=== PATIENT | male | born 1950 | race Caucasian/White ===

== ENCOUNTER → 2017-05-26 09:15 | Outpatient (CLI) | payer MEDICARE, OTHER, SELFPAY ==
[2017-05-26 10:24] LABS: Prothrombin Time (Protime)PT. 22.4 SECONDS (11.7-14.9)
== END ==
PROVIDERS: Family Provider Internal Medicine; PCP Internal Medicine
DX: I48.0 Paroxysmal atrial fibrillation (principal)
CPT/HCPCS: 85610

== ENCOUNTER 2017-05-26 15:01 | Emergency (ER) | payer MEDICARE, OTHER, SELFPAY ==
[2017-05-26 15:02] VITALS: BP 159/77; PULSE 67; PULSE 70; RESP 14; RESP 19; TEMP 36.3; O2SAT 96; BMI 38.2
--- NOTE | 2017-05-26 15:18 | CT_ITS ---
STUDY: CT ABDOMEN AND PELVIS WITH CONTRAST REASON FOR EXAM: Male, 66 years old. Left abdominal pain. Injury to left lower ribs 2 days ago. RADIATION DOSAGE (If Supplied By Facility): CTDIvol = ( 23.53 ) mGy, DLP = ( 1383.93 ) mGycm TECHNIQUE: Transaxial images were obtained from the dome of the diaphragm to the symphysis pubis without oral contrast. 100 ml of Isovue 300 contrast was administered. Sagittal and coronal images were reconstructed. Individualized dose optimization techniques were used for this CT. COMPARISON: None. FINDINGS: Minimal posterior basilar atelectatic changes of the left lung The visualized portions of the heart are within normal limits. Normal liver. Normal gallbladder and extrahepatic biliary system. Normal spleen. Normal pancreas. Normal bilateral adrenal glands. Normal right kidney. Normal left kidney. Normal visualized stomach. Normal small intestine. Mild diverticulosis of the colon without acute diverticulitis. There is non-visualization of the appendix. Fusiform infrarenal dilatation of the abdominal aorta with a maximum diameter of 3.4 cm. Aneurysm length 7 cm. Moderate calcified plaque. Normal inferior vena cava. Normal retroperitoneum. Normal urinary bladder. Normal abdominal wall. There are diffuse degenerative changes of the visualized lumbar spine. Negative for fracture of the lower ribs, lumbar spine, pelvis or hips. CT/Abdomen/Pelvis W IV Cont ONLY IMPRESSION: No acute trauma related findings. Negative for solid organ, bowel injury or fracture. Minimal posterior basilar atelectasis of the left lung. Mild diverticulosis. Incidental 3.4 cm fusiform aneurysm of the infrarenal aorta with a length of 7 cm. Electronically Signed: Delfina De Paz MD at 16:45 EDT , Service support ,
[2017-05-26 15:53] LABS: Prothrombin Time (Protime)PT. 22.4 SECONDS (11.7-14.9)
[2017-05-26 15:56] LABS: Absolute Lymphocyte Count 3.83 X10^3/ul (0.83-4.51); Basophil# 0.02 X10^3/uL; Basophil% 0.2 % (0-1); Eosinophil# 0.21 X10^3/uL; Eosinophils% 1.9 % (0-5); Hematocrit 39.7 % (40-54); Hemoglobin 12.8 g/dl (13.0-16.5); Lymphocyte # 3.83 X10^3/ul (4.0); Lymphocyte % 35.1 % (19-41); Mean Corp Hgb Conc 32.2 g/gl (32-36); Mean Corpuscular Hgb 27.4 pg (27.0-32.0); Mean Corpuscular Volume 84.8 fL (80-94); Mean Platelet Vol. 10.8 fl (6.2-12.0); Monocyte# 0.84 X10^3/uL; Monocyte% 7.7 % (0-10); Neutrophil # 5.98 X10^3/uL (2.7-7.7); Neutrophil % 54.8 % (47-70); Platelet Count 220 K/mm3 (150-450); RBC Distribution Width CV 14.3 % (11.6-14.6); Red Blood Count 4.68 M/mm3 (4.6-6.2); White Blood Count 10.9 K/mm3 (4.4-11.0)
[2017-05-26 15:59] LABS: Anion Gap 8 (5-15); BUN 24 mg/dL (7-18); BUN/Creat Ratio 25.6 RATIO (10-20); Calcium,Total 8.6 mg/dL (8.5-10.1); Chloride 104 mmol/L (98-107); Creatinine, Serum 0.94 mg/dL (0.70-1.30); EST Glomerular Filtration Rate 86 mL/min (>60); Est Glom Filt Rate - Afr Amer 104 mL/min (>60); Estimated Creatinine Clearance 85.99 ml/min; Glucose 101 mg/dL (74-106); Sodium Level 138 mmol/L (136-145)
[2017-05-26 16:08] LABS: POSITIVE COUNT NO; POSITIVE DIFFERENTIAL NO; POSITIVE MORPHOLOGY NO
--- NOTE | 2017-05-26 16:23 | RAD_ITS ---
STUDY: X-RAY CHEST REASON FOR EXAM: Male, 66 years old. Chest pain TECHNIQUE: PA and lateral views of the chest. COMPARISON: Prior chest radiograph of February 12, 2014 FINDINGS: The lungs are clear and expanded. There is no demonstrated pleural abnormality. Normal size heart. Normal mediastinum and bhavya. Normal visualized pulmonary arteries. There is atherosclerotic calcification of the aortic arch with tortuosity. There are diffuse degenerative changes of the visualized thoracic spine. Old left rib fractures. Anterior cervical spine fusion hardware included in the [id number]. There is no demonstrated abnormality of the visualized soft tissue structures of the upper abdomen. RAD/Chest PA and Lateral IMPRESSION: No acute cardiopulmonary findings or changes. Electronically Signed: Delfina De Paz MD at 17:21 EDT , Service support ,
--- NOTE | 2017-05-26 18:03 | ED.VISSUMM ---
- ER Visit Summary Date of Service: 05/26/17 Chief Complaint: Chest pain History of Present Illness: The patient is a 66 M who presents with chest pain. He states that 2 days ago he had dropped his cell phone into a plastic garbage bin. He was leaning over to pick it up and the edge went underneath his ribs on the left side. He states he felt a pop. He has had left lower chest and left flank pain since that time. He takes OxyContin at home for chronic pain. He was seen at the urgent care. He reportedly had normal rib x-rays. He continued to have pain. He called back. He was told that his insurance would not pay for a second visit at the same facility in the same day so that he had to go to the emergency department. Physical Examination: Afebrile vitals are stable Moist mucous membranes Heart regular rate and rhythm Lungs are clear Left lower lateral chest wall tenderness Abdomen soft but he does have left upper quadrant and flank tenderness I do not appreciate any ecchymosis Test Results: CBC notable for hemoglobin 12.8. Normal BMP. INR 2.0. Chest x-ray shows no acute changes. CT of the abdomen and pelvis shows no acute traumatic findings incidentally he does have 3.4 centimeter abdominal aortic aneurysm. Emergency Department Course and Treatment: The patient is on warfarin and continues to complain of left upper quadrant abdominal pain a CT was obtained to rule out solid organ injury. This is unremarkable. 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 He was advised to continue supportive care at home and was discharged. Treatment Plan: [] Disposition: Discharge Impression: Left chest contusion Left abdominal contusion This note was generated with [employer]ooo dictation software. It may contain incorrect words, spelling, and punctuation that were not noted in review of the chart prior to signing ED Disposition - Plan for ED Patient: Chief Complaint: Chest Other Referrals: Braulio Stafford MD [Primary Care Provider] -
--- NOTE | 2017-05-26 18:06 | ED.DCSUM_ITS ---
- ER Visit Summary Date of Service: 05/26/17 Chief Complaint: Chest pain History of Present Illness: The patient is a 66 M who presents with chest pain. He states that 2 days ago he had dropped his cell phone into a plastic garbage bin. He was leaning over to pick it up and the edge went underneath his ribs on the left side. He states he felt a pop. He has had left lower chest and left flank pain since that time. He takes OxyContin at home for chronic pain. He was seen at the urgent care. He reportedly had normal rib x- rays. He continued to have pain. He called back. He was told that his insurance would not pay for a second visit at the same facility in the same day so that he had to go to the emergency department. Physical Examination: Afebrile vitals are stable Moist mucous membranes Heart regular rate and rhythm Lungs are clear Left lower lateral chest wall tenderness Abdomen soft but he does have left upper quadrant and flank tenderness I do not appreciate any ecchymosis Test Results: CBC notable for hemoglobin 12.8. Normal BMP. INR 2.0. Chest x- ray shows no acute changes. CT of the abdomen and pelvis shows no acute traumatic findings incidentally he does have 3.4 centimeter abdominal aortic aneurysm. Emergency Department Course and Treatment: The patient is on warfarin and continues to complain of left upper quadrant abdominal pain a CT was obtained to rule out solid organ injury. This is unremarkable. 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 He was advised to continue supportive care at home and was discharged. Treatment Plan: [] Disposition: Discharge Impression: Left chest contusion Left abdominal contusion This note was generated with [employer] dictation software. It may contain incorrect words, spelling, and punctuation that were not noted in review of the chart prior to signing ED Disposition - Plan for ED Patient: Chief Complaint: Chest Other Referrals: Braulio Stafford MD [Primary Care Provider] -
--- NOTE | 2017-05-26 18:06 | ED.DEP ---
ED Disposition - Plan for ED Patient: Chief Complaint: Chest Other Instructions: ED Contusion Soft Tissue Referrals: Braulio Stafford MD [Primary Care Provider] -
[2017-05-26 18:15] VITALS: BP 161/78; PULSE 62; RESP 18; O2SAT 98
== END 2017-05-26 18:19 | disposition home or self-care (01) ==
PROVIDERS: Emergency Provider Emergency Medicine; Family Provider Internal Medicine; PCP Internal Medicine
DX: S20.212A Contusion of left front wall of thorax, initial encounter (principal); S30.1XXA Contusion of abdominal wall, initial encounter; W22.8XXA Striking against or struck by other objects, initial encounter; Y93.89 Activity, other specified; Y92.9 Unspecified place or not applicable; Y99.8 Other external cause status; I71.4 Abdominal aortic aneurysm, without rupture; I48.0 Paroxysmal atrial fibrillation; I10 Essential (primary) hypertension; K21.9 Gastro-esophageal reflux disease without esophagitis; Z79.01 Long term (current) use of anticoagulants; Z79.899 Other long term (current) drug therapy
CPT/HCPCS: 71046; 74177; 80048; 85025; 85610; 99283; Q9967; A4216

== ENCOUNTER 2017-06-11 10:35 | Emergency (ER) | payer MEDICARE, OTHER, SELFPAY ==
[2017-06-11 10:37] VITALS: BP 182/97; PULSE 87; RESP 18; TEMP 36.4; O2SAT 100; BMI 35.6
[2017-06-11 11:14] VITALS: BP 154/97; PULSE 56; RESP 16; O2SAT 95
--- NOTE | 2017-06-11 11:14 | ED.DCSUM_ITS ---
- ER Visit Summary Date of Service: 06/11/17 Chief Complaint: Persistent left anterior rib/chest pain and upper abdominal pain History of Present Illness: The patient is a 66 M who injured himself reaching for his cell phone in the garbage canister May 26, 2017. states she found him on the ground in pain. He presented to the emergency room at that time had a CT of the abdomen and pelvis which revealed no evidence of pneumothorax, hemothorax, fractured ribs or splenic injury. He is on Coumadin and his last INR was 2.3. He is on Coumadin secondary to atrial fibrillation. Patient wants an answer why he still hurts. He denies fever, chills night sweats. He denies any ocular, visual or auditory symptoms. He denies any shortness of breath or difficulty breathing. Movement of his left upper extremity and twisting causes increased pain. He is presently on OxyContin. He denies hematemesis, melena hematochezia. He denies dysuria, frequency, urgency or hematuria. Physical Examination: Blood pressure is elevated 182/97. HEENT exam is unremarkable. Heart is irregularly regular. There is no murmur, gallop or rub. Lungs are clear to auscultation with good matter bilaterally. There is no dullness to percussion. He does have pain the patient over the anterior lower rib cage midclavicular line to posterior clavicular line. There is no crepitus obtains air. There is tenderness in the left costal margin. There is no hepatosplenomegaly. There is no outward signs of bruising or injury. Bowel sounds are present normal.. He is alert oriented with a nonfocal neurologic exam. Test Results: Radiologic studies that were performed on May 26 where reviewed and radiology report was read. There is no evidence of fractured rib, injury to the cartilage, pneumothorax, hemothorax or splenic injury. Emergency Department Course and Treatment: He was told that he bruised the cartilage and ribs and may hurt for several more weeks. Treatment Plan: Symptomatic treatment Disposition: Discharge to home Impression: Left anterior chest pain secondary to rib contusion This note was generated with [employer] dictation software. It may contain incorrect words, spelling, and punctuation that were not noted in review of the chart prior to signing ED Disposition - Plan for ED Patient: Disposition: Home or Assisted Living Chief Complaint: Chest Other Instructions: ED Contusion Rib Referrals: Braulio Stafford MD [Primary Care Provider] - 10-14 Days if not better
[2017-06-11 11:21] VITALS: BP 150/75; PULSE 58; RESP 16; O2SAT 96
== END 2017-06-11 11:22 | disposition home or self-care (01) ==
PROVIDERS: Emergency Provider Emergency Medicine; Family Provider Internal Medicine; PCP Internal Medicine
DX: S20.212A Contusion of left front wall of thorax, initial encounter (principal); X58.XXXA Exposure to other specified factors, initial encounter; Y93.89 Activity, other specified; Y92.9 Unspecified place or not applicable; I48.91 Unspecified atrial fibrillation; J44.9 Chronic obstructive pulmonary disease, unspecified; K21.9 Gastro-esophageal reflux disease without esophagitis; Z79.01 Long term (current) use of anticoagulants; Z79.899 Other long term (current) drug therapy; Z87.891 Personal history of nicotine dependence
CPT/HCPCS: 99282

== ENCOUNTER → 2017-08-09 11:19 | Outpatient (CLI) | payer MEDICARE, OTHER, SELFPAY ==
--- NOTE | 2017-08-09 11:23 | VDLE_ITS ---
Reason For Study: LLE PAIN RIGHT LEFT CFV is compressible, spontaneous, phasic, GSV is normal. competent and demonstrates normal CFV is compressible, spontaneous, phasic, augmentation. competent, and demonstrates normal Procedure augmentation. Exam performed in department. FV is compressible, spontaneous, phasic, The exam was diagnostic. competent and demonstrates normal A preliminary report was called and/or faxed augmentation. to Sherri Rivers ELECTRICAL MAINTENANCE ENGINEER-C @ 11:55am @ POP V is compressible, spontaneous, phasic, [id number]. competent and demonstrates normal augmentation. T/P Trunk is compressible. PTV is compressible. LT PerV is compressible. Interpretation Summary There is no evidence of left lower extremity deep vein thrombosis. Left greater saphenous vein appears patent and compressible segmentally. Normal flow patterns right common femoral vein Ordering Physician: Sherri Rivers Referring Physician: Braulio Stafford M.D. Performed By: Yanet Tejeda, IDALIA, RVT
== END ==
PROVIDERS: Family Provider Internal Medicine; PCP Internal Medicine; Visit Provider Nurse Practitioner Family
DX: M79.662 Pain in left lower leg (principal)
CPT/HCPCS: 93971

== ENCOUNTER 2019-01-14 00:39 | Emergency (ER) | payer MEDICARE, OTHER, SELFPAY ==
[2019-01-14] VITALS (29 sets, daily range): BP systolic 96–223; BP diastolic 65–138; PULSE 83–131; RESP 20–36; TEMP 36–36.6; O2SAT 78–100; BMI 36.3
[2019-01-14] MEDS: 0.9% Normal Saline 1,000 ML 1000 ML IV (00:42)
[2019-01-14] MEDS: Midazolam 2 MG/2 ML Syringe IV (00:53)
--- NOTE | 2019-01-14 01:03 | RAD_ITS ---
HISTORY: Pt found unresponsiveET tube placement, NG/OG tube placement ADDITIONAL HISTORY: None provided. TECHNIQUE: Frontal chest radiograph. Number of images including paperwork: 2 COMPARISON: 05/26/2017 FINDINGS: LUNGS AND PLEURA: Bilateral airspace opacities, most pronounced in the right upper lobe. No dense consolidation, sizable effusion or pneumothorax. CARDIAC SILHOUETTE: Upper normal size. MEDIASTINUM AND JOSÉ MIGUEL: Grossly unremarkable given supine portable exam. UPPER ABDOMEN: Unremarkable. SKELETON AND SOFT TISSUES: No acute findings. OTHER DEVICES AND HARDWARE: Sternal wires and cardiac clip. Valvular prosthesis. Endotracheal tube tip at the clavicular heads about 9 cm above the rakesh. Gastric tube tip extends into the stomach, tip below the level of the film. RAD/Chest 1 View (Portable) IMPRESSION: 1. Bilateral infiltrates, nonspecific and possibly asymmetric edema, aspiration pneumonia or pneumonia. 2. Endotracheal tube high in position, consider advancement by about 4 cm. at 0118 Reported and signed by: Isabel Guzman MD Electronically Signed: Isabel Guzman MD at 1:18 EST Tel , Service support ,
--- NOTE | 2019-01-14 01:03 | EKG12_ITS ---
Test Reason : CARDIAC ARREST Blood Pressure : / mmHG Vent. Rate : 105 BPM Atrial Rate : 052 BPM P-R Int : 000 ms QRS Dur : 182 ms QT Int : 476 ms P-R-T Axes : 000 010 136 degrees QTc Int : 629 ms Atrial fibrillation with rapid ventricular response Left bundle branch block Abnormal ECG Confirmed by THERESA MACIAS, ISSAC ([id number]), acquisition editor TEVIN CALDERON ([id number]) on 01/17/2019 9:52:40 AM Referred By: BB Confirmed By:ISSAC CARDENAS MD
--- NOTE | 2019-01-14 01:04 | CT_ITS ---
HISTORY: CARDIAC ARREST ADDITIONAL HISTORY: None provided. TECHNIQUE: CT angiogram images of the chest were obtained with 100 mL Isovue 370 IV contrast as per pulmonary angiogram protocol. 3D MIP images used to aid in evaluation for pulmonary embolism. Number of images including paperwork: 1228 A radiation dose optimization technique was used for this scan. COMPARISON: None FINDINGS: PULMONARY ARTERIES: No central or large peripheral filling defects. Motion artifact limits evaluation. AORTA AND GREAT VESSELS: Unremarkable. HEART/PERICARDIUM: Moderately enlarged. Sternotomy and aortic valve prosthesis. MEDIASTINUM: Unremarkable. ADENOPATHY: No pathologic appearing adenopathy. THYROID: Unremarkable visualized portions. LUNG PARENCHYMA: Bilateral consolidation, greater on the right than the left. PLEURAL SPACES: Unremarkable. UPPER ABDOMEN: Gastric tube tip in the stomach. OSSEOUS AND SOFT TISSUE STRUCTURES: Multiple bilateral anterior rib fractures, some of which are mildly displaced and/or comminuted. Degenerative changes. CT/CTA Chest W/WO Contrast IMPRESSION: 1. No central or large peripheral pulmonary embolus, evaluation limited due to motion artifact. 2. Asymmetric bilateral infiltrates, possibly asymmetric edema, pneumonia, aspiration pneumonia and/or contusion. 3. Bilateral anterior rib fractures. Individualized dose optimization techniques were used for this CT. at 0210 Reported and signed by: Isabel Guzman MD Electronically Signed: Isabel Guzman MD at 2:09 EST Tel , Service support ,
--- NOTE | 2019-01-14 01:04 | CT_ITS ---
HISTORY: MENTAL STATUS CHANGES ADDITIONAL HISTORY: None provided. COMPARISON: None TECHNIQUE: Axial, coronal and sagittal CT images were obtained of the brain without intravenous contrast. Number of images including paperwork: 268. A radiation dose optimization technique was used for this scan. FINDINGS: BRAIN PARENCHYMA: No acute hemorrhage or mass. No definite acute infarct; MRI more sensitive. EXTRA-AXIAL SPACES: No acute hemorrhage. VENTRICULAR SYSTEM: No hydrocephalus. PARANASAL SINUSES AND MASTOIDS: No paranasal sinus air-fluid level. Minimal mucosal thickening. Left mastoid fluid. ORBITS: Unremarkable imaged extent. SKELETON AND SOFT TISSUES: Calvarium intact. ASPECTS score: Not applicable. CT/Brain/Head without Contrast IMPRESSION: No acute intracranial abnormality. Left mastoid effusion. Individualized dose optimization techniques were used for this CT. at 0157 Reported and signed by: Isabel Guzman MD Electronically Signed: Isabel Guzman MD at 1:57 EST Tel , Service support ,
[2019-01-14] MEDS: Propofol 10MG/Ml 1,000 MG/100 ML Bottle 7.1 MG CONT INF (01:07)
[2019-01-14 01:18] LABS: Hematocrit 40.5 % (40-54); Hemoglobin 12.4 g/dL (13.0-16.5); Mean Corp Hgb Conc 30.6 g/dL (32-36); Mean Corpuscular Hgb 26.5 pg (27.0-32.0); Mean Corpuscular Volume 86.5 fL (80-94); Mean Platelet Vol. 11.3 fl (6.2-12.0); POSITIVE COUNT YES; POSITIVE DIFFERENTIAL YES; POSITIVE MORPHOLOGY YES; Platelet Count 267 K/mm3 (150-450); RBC Distribution Width CV 14.6 % (11.6-14.6); RBC Distribution Width SD 46.3 fl (35.1-43.9); Red Blood Count 4.68 M/mm3 (4.6-6.2); White Blood Count 14.6 K/mm3 (4.4-11.0)
[2019-01-14 01:19] LABS: Differential Indicated MANUAL DIFF
[2019-01-14 01:22] LABS: International Normalized Ratio 1.1; Prothrombin Time (Protime)PT. 13.5 SECONDS (11.7-14.9)
[2019-01-14 01:34] LABS: BUN 18 mg/dL (7-18); BUN/Creat Ratio 11.9 RATIO (10-20); Calcium,Total 8.5 mg/dL (8.5-10.1); Creatinine, Serum 1.51 mg/dL (0.70-1.30); EST Glomerular Filtration Rate 49 mL/min (>60); Est Glom Filt Rate - Afr Amer 60 mL/min (>60); Estimated Creatinine Clearance 50.56 ml/min; Glucose 295 mg/dL (74-106); Magnesium 2.5 mg/dL (1.6-2.6)
[2019-01-14 01:35] LABS: Anion Gap 15 (5-15); Chloride 107 mmol/L (98-107); Potassium 3.1 mmol/L (3.5-5.1); Sodium Level 140 mmol/L (136-145)
--- NOTE | 2019-01-14 01:41 | ED.VIS.GEN ---
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 He went to bed, he was asleep and his noticed that he was breathing abnormally and did not look well and would not wake up. They called 911, her daughter performed CPR and was performing it upon EMS arrival. Their initial rhythm was fine ventricular fibrillation. Between then and arriving in the ER, they gave him 3 electric cardioversions and 2 doses of epinephrine 1 mg. They had spontaneous return of circulation prior to arrival with a pulse. They placed an i-gel for airway and breathing. Patient had a CABG 3 or 4 months ago. - Past Medical History (1) CAD (coronary artery disease) Status: Chronic Past Medical History - Allergies and Home Meds Allergies/Adverse Reactions: Allergies No Known Allergies Allergy (Verified 05/26/17 15:01) Primary Care Physician: Braulio Stafford MD [Primary Care Provider] - Doctors: Dr. Americo Freedman - cardiology Surgical History: coronary bypass surgery Lives: Spouse/ Significant Other Smoking Status: Never smoker - Family History Maternal Family History: Reports: Cancer Paternal Family History: Reports: Cancer Review of Systems ROS: Unable to Obtain Physical Exam Vital Signs/Narrative: Vital Signs Temp Pulse Resp BP Pulse Ox 01/14/19 01:11 97 31 H 142/92 H 100 01/14/19 01:07 97.7 F L 97 33 H 94 01/14/19 01:06 97.8 F 106 H 27 H 165/109 H 100 Inital Vital Signs reviewed: Yes General: Well nourished, Well developed, - - unresponsive. spontaneous breathing. LMA i-gel in place, no gag. Head: Normocephalic, Atraumatic Eyes: Perrl - 3mm bilat, equal ENT: Moist mucous membranes Neck: Supple, Nontender Cardiovascular: Regular rate, Regular rhythm, Tachycardia Respiratory: Diminished - throughout, equal BS bilat, clear anteriorly Abdomen: Soft, Nondistended, Normal bowel sounds Extremities: No edema, - - no signs of trauma Skin: No rash, Pallor. Negative for: Cyanosis Neurological: - - GCS 3t; unresponsive Diagnostic/Tx/Re-eval Impressions Chest X-Ray 01/14/19 01:03 IMPRESSION: 1. Bilateral infiltrates, nonspecific and possibly asymmetric edema, aspiration pneumonia or pneumonia. 2. Endotracheal tube high in position, consider advancement by about 4 cm. at 0118 Reported and signed by: Isabel Guzman MD Electronically Signed: Isabel Guzman MD at 1:18 EST Tel , Service support , Brain CT 01/14/19 01:04 IMPRESSION: No acute intracranial abnormality. Left mastoid effusion. Individualized dose optimization techniques were used for this CT. at 0157 Reported and signed by: Isabel Guzman MD Electronically Signed: Isabel Guzman MD at 1:57 EST Tel , Service support , Chest CTA 01/14/19 01:04 IMPRESSION: 1. No central or large peripheral pulmonary embolus, evaluation limited due to motion artifact. 2. Asymmetric bilateral infiltrates, possibly asymmetric edema, pneumonia, aspiration pneumonia and/or contusion. 3. Bilateral anterior rib fractures. Individualized dose optimization techniques were used for this CT. at 0210 Reported and signed by: Isabel Guzman MD Electronically Signed: Isabel Guzman MD at 2:09 EST Tel , Service support , 01/14/19 01:03 Chest 1 View (Portable) [RAD] Stat 01/14/19 01:04 Brain/Head without Contrast [CT] Stat CTA Chest W/WO Contrast [CT] Stat Laboratory Results 01/14/19 01/14/19 01/14/19 00:45 00:45 00:45 WBC 14.6 H RBC 4.68 Hgb 12.4 L Hct 40.5 MCV 86.5 MCH 26.5 L MCHC 30.6 L RDW Std Deviation 46.3 H RDW Coeff of Stew 14.6 Plt Count 267 MPV 11.3 Neut % (Auto) Not Reportable Absolute Neuts (auto) 6.1 Absolute Lymphs (auto) 7.74 H Total Counted 100 Neutrophils % (Manual) 39 L Band Neutrophils % 3 Lymphocytes % (Manual) 53 H Monocytes % (Manual) 2 Eosinophils % (Manual) 3 Diff Path Review May foll Reactive Lymphocytes 2+ Platelet Estimate ADEQUATE RBC Morphology NORM C+C PT 13.5 INR 1.1 APTT 34.0 Specimen Type Sample Site pH Bicarbonate Actual POC Total CO2 Base Excess O2 Saturation O2 % ABG pCO2 ABG pO2 Ashish Test Respiration Rate O2 Delivery Device Minute Volume Vent Mode Tidal Volume POC PEEP Blood Gas Notified Whom Blood Gas Notified Time Sodium 140 Potassium 3.1 L Chloride 107 Carbon Dioxide 18.0 L Anion Gap 15 BUN 18 Creatinine 1.51 H Estim Creat Clear Calc 50.56 Est GFR (MDRD) Af Amer 60 Est GFR (MDRD) Non-Af 49 L BUN/Creatinine Ratio 11.9 Glucose 295 H Calcium 8.5 Magnesium 2.5 Troponin I 0.023 B-Natriuretic Peptide 01/14/19 01/14/19 00:45 02:01 WBC RBC Hgb Hct MCV MCH MCHC RDW Std Deviation RDW Coeff of Stew Plt Count MPV Neut % (Auto) Absolute Neuts (auto) Absolute Lymphs (auto) Total Counted Neutrophils % (Manual) Band Neutrophils % Lymphocytes % (Manual) Monocytes % (Manual) Eosinophils % (Manual) Diff Path Review Reactive Lymphocytes Platelet Estimate RBC Morphology PT INR APTT Specimen Type ART Sample Site R Radial pH 7.29 L Bicarbonate Actual 19.5 L POC Total CO2 21 Base Excess -7 L O2 Saturation 92 L O2 % 60 ABG pCO2 40.2 ABG pO2 70 L Ashish Test POS Respiration Rate 14 O2 Delivery Device Vent Minute Volume 16.00 Vent Mode A-C Tidal Volume 500 POC PEEP 5 Blood Gas Notified Whom ED Blood Gas Notified Time 155 Sodium Potassium Chloride Carbon Dioxide Anion Gap BUN Creatinine Estim Creat Clear Calc Est GFR (MDRD) Af Amer Est GFR (MDRD) Non-Af BUN/Creatinine Ratio Glucose Calcium Magnesium Troponin I B-Natriuretic Peptide 180.3 H - Rhythm Strip Rhythm Strip: Sinus Tach Rate: 105 Ectopy: None - EKG Initial EKG Interpretation: No Acute Injury Pattern, Sinus Tachycardia, LBBB, S-T Depression - lateral precordial leads, no ANTONIO, - - significant artifact; not sent to cardiology; see next EKG Prior: Unchanged - c/w old EKG Follow-up EKG Interpretation: No Acute Injury Pattern, Sinus Tachycardia, LBBB, S-T Depression - lateral precordial leads, no ANTONIO Prior: Unchanged - Medical Decision Making I spoke with Dr. Palmer, cardiology on for STEMI, immediately upon receiving the EKG, and sent it to him w/ his old one. It was decided not to take him right to the [facility], but to rule out medical issues first. His head CT shows no acute bleed or other abnormality, the infiltrates are seen on CT but no pulmonary embolus. He has bilateral rib fractures likely due to CPR. No pneumothorax noted. In discussion with , the patient recently had pneumonia. It is unknown how much of that was residual, but his CT shows significant infiltrates now. I know that at least part of this is due to him aspirating during the procedure where we secured his airway. See below for the procedure note. With respiratory's help, we continued suctioning fluid from his ETT. Prior to that, his ABG showed that he had a mild respiratory acidosis, and he was already overbreathing the vent which was set on AC, likely due to his aspiration, we left his vent settings alone. He never had a recurrent dysrhythmia while being monitored. His potassium was low with a normal magnesium, replacement was ordered and begun. Hypothermia was ordered. The cooling blanket is being used by another patient at this time and not available so we are placing ice packs on his neck, axilla, groin, adding a fentanyl drip to his propofol. He is withdrawing pretty well with the tube now but not waking up. Discussed with certified retinal angiographer Dr. Barrera, he agrees with hypothermia and advises Unasyn to cover him for aspiration. Discussed again with Dr. Palmer who agrees with amiodarone bolus and drip, and also request heparin which will be ordered as well. Discussed with hospitalist for admission. Discussed at length with family. Initially they were requesting transfer to [facility] because we thought he had to go somewhere. I discussed with him that we have certified retinal angiographer, in ICU, service superintendent, and everyone was on board who I spoke with and caring for this patient, and that we have the capability of doing so here at this hospital. After this discussion, they were comfortable with him staying here. Therefore I discussed with Dr. England hospitalist who saw the patient, at which point they got another family member involved over the phone who wanted him transferred. But then seemed that the whole family was on board with us discussing with the patient's service superintendent at [facility] who happened to be available, and going according to his recommendations. That physician indeed preferred to have him transferred to [facility]. We then discussed with the certified retinal angiographer Dr. Devries who accepted the patient. We are now awaiting mobile intensive care transport. Also, on checking ETT and chest x-ray, the tip appeared to be at the clavicles with the tube at 23 cm at the lip. Hospitalist preferred that it be advanced, this was done, repeat chest x-ray shows good placement still, in addition to evolution of his right lung infiltrates. He is stable on the ventilator and propofol/fentanyl drips, and his vital signs are normal with his blood pressure now 136/83 and his respiratory rate is down to 25 with pulse ox at low 90s. - Critical Care Time Critical care time (excluding procedures): 30-74 minutes - 45 min, not including procedures, Including time spent:, Discussing w/Patient &/or Family/Lead C Developer, Discussing w/Consultants, Arranging Admission or Transfer, Performing Direct Patient Care at Bedside Procedures Procedure(s): Intubation via Cook airway exchange catheter. -Since patient was unresponsive and had no gag reflex with the LMA in his tracheo-pharyngeal area, did not flinch when nursing placed his chamberlain catheter, and because I wanted to see if the patient would become more responsive with time and perfusion, I placed a 7.5 ETT via Cook airway exchange catheter placed through the i-gel LMA without any further sedation or pretreatment. The patient started gagging immediately. Air was heard moving through the exchange catheter as he was gagging and breathing. I removed the LMA and replace it with the ETT, which was lubricated, along with a gentle twisting, causing more gagging and secretions which were actively being suctioned during the procedure (I had 2 respiratory therapists assisting; one was suctioning, the other handed me the tube and was assisting in helping to keep his teeth from clenching on the tube). We then suctioned the secretions from the ET tube as well. There was good color change on CO2, x-ray confirms tube placement, I suspect he aspirated as a result of all of this but there were no other complications or hypoxemia/bradycardia. Given the gagging and possible vomiting that he was doing, I feel leaving the i-Gel in place could have resulted in worse aspiration, so my judgement was to replace it with the airway protection of an endotracheal tube RUT. ED Disposition - Plan for ED Patient: Disposition: [facility] - Main Diagnosis: Cardiac arrest with ventricular fibrillation, Aspiration pneumonia, Encephalopathy acute, Hypokalemia Referrals: Braulio Stafford MD [Primary Care Provider] -
[2019-01-14 01:43] LABS: Eosinophil 3 % (0-5); Lymphocyte 53 % (19-41); Monocyte 2 % (0-10); Neutrophil-Band 3 % (0-5); Neutrophil-Segmented 39 % (47-70); Platelet Estimate ADEQUATE (ADEQ); Reactive Lymphocyte 2+; Red Cell Morphology NORM C+C NORMAL (NORM C&C); Total Cells Counted 100 (MANUAL DIFF)
[2019-01-14 01:45] LABS: Absolute Lymphocyte Count 7.74 X10^3/uL (0.83-4.51); Absolute Neutrophil Count 6.1 X10^3/uL (2.0-7.7)
[2019-01-14 01:47] LABS: BNP,B-Type NATRIURETIC PEPTIDE 180.3 pg/mL (0-100)
[2019-01-14] MEDS: Potassium Chloride 10mEq/100mL 10 MEQ/100 ML IV.SOLN. 100 MEQ IV BOLUS (02:05)
[2019-01-14 02:06] LABS: Allen Test POS; Base Excess -7 mmol/L (-2 to +2); Bicarbonate 19.5 mmol/L (22-26); Blood Gas Specimen Type ART; FI02 60; Mode A-C; O2 Delivery Device Vent; PEEP 5; PO2 70 mmHG (75-100); RR 14; SITE R Radial; SO2 92 % (95-99); Time Given 155; Total Carbon Dioxide 21 mmol/L; Vt 500; pCO2 40.2 mmHg (35-45); pH 7.29 (7.35-7.45)
--- NOTE | 2019-01-14 02:29 | HP.PCM_ITS ---
Problem List (1) Cardiac arrest with ventricular fibrillation Status: Acute (2) Aspiration pneumonia Status: Acute Qualifiers: Aspiration pneumonia type: unspecified Laterality: unspecified laterality Lung location: unspecified part of lung Qualified Code(s): J69.0 - Pneumonitis due to inhalation of food and vomit (3) MARCO ANTONIO (acute kidney injury) Status: Acute (4) Hypokalemia Status: Acute (5) PAF (paroxysmal atrial fibrillation) Status: Chronic (6) Bladder cancer Status: Chronic Qualifiers: Bladder location: unspecified site Qualified Code(s): C67.9 - Malignant neoplasm of bladder, unspecified (7) Former tobacco use Status: Chronic (8) HTN (hypertension) Status: Chronic Qualifiers: Hypertension type: essential hypertension Qualified Code(s): I10 - Essential (primary) hypertension (9) HLD (hyperlipidemia) Status: Chronic Qualifiers: Hyperlipidemia type: unspecified Qualified Code(s): E78.5 - Hyperlipidemia, unspecified (10) CAD (coronary artery disease) Status: Chronic Qualifiers: Coronary Disease-Associated Artery/Lesion type: unspecified vessel or lesion type [place] vs. transplanted heart: unspecified whether [place] or transplanted heart Associated angina: angina presence unspecified Qualified Code(s): I25.10 - Atherosclerotic heart disease of [place] coronary artery without angina pectoris History of Present Illness Date of Admission: 01/14/19 Chief Complaint: Unresponsive The patient is a 68 y/o M w/ PMHx: PAF, HTN, CAD s/p CABG ~ 3 months prior, History of Bladder CA, GERD who presents to the [facility] ED on 01/14/19 with history of recently flying home on a flight from [place] approximately 6 to 7 hours prior to onset of symptoms, going to bed following which his noticed that he was breathing abnormally and difficult to arouse prompting her to call 911. Per report her daughter performed CPR and continued until EMS arrived. The initial rhythm noted per EMS was fine ventricular fibrillation with EMS administration of 3 electrocardioversions and 2 doses of epinephrine with spontaneous return of circulation. Work-up in the ED included CBC with WBC 14.6, hemoglobin 12.4, platelet 264 with increased lymphocytes, unremarkable coags, ABG with pH 7.29, bicarb 19.5, PCO2 40, PO2 70 on the ventilator, BMP with potassium 3.1,, dioxide 18, BUN/creatinine 18/1.51, glucose 295, magnesium 2.5, troponin 0 0.023, BNP 180.3, chest x-ray with bilateral infiltrates with ET tube in the high position, CT brain with no acute intracranial finding with a left mastoid effusion, CTPA with no large or central peripheral pulmonary embolus although evaluation limited secondary to motion artifact, asymmetric bilateral infiltrates possibly asymmetric edema, pneumonia, aspiration pneumonia nor contusion, bilateral anterior rib fractures, EKG with sinus tachycardia with left bundle branch block with ST depression in the lateral precordial leads. In the ED patient was transition from an ideal LMA to an ET tube. During ETT placement he was noted to have onset of severe gagging with esophageal secretion aspiration. In the ED patient administered normal saline, amiodarone, Unasyn, heparin bolus and drip as well as propofol and fentanyl for sedation. Past Medical History Past Medical History (Chronic Problems): Chronic Problems CAD (coronary artery disease) (Chronic) PAF (paroxysmal atrial fibrillation) (Chronic) Bladder cancer (Chronic) Former tobacco use (Chronic) HTN (hypertension) (Chronic) HLD (hyperlipidemia) (Chronic) Allergies No Known Allergies Allergy (Verified 05/26/17 15:01) Home Medications: Ambulatory Orders Medication Instructions Recorded Albuterol Inhaler [Ventolin Hfa] 1 - 2 puff INHALATION Q4H PRN PRN 12/29/12 Omeprazole [Prilosec] 20 mg PO DAILY 12/29/12 Sotalol HCl [Betapace AF] 120 mg PO BID 12/29/12 Metoprolol Tartrate [Lopressor 50 mg PO BID 08/18/16 (beta kathryn)] Warfarin [Coumadin (PBKC)] 6 mg PO DAILY@1700 08/18/16 Surgical History: - - CD status post recent CABG, PAF, history of bladder cancer, hypertension, hyperlipidemia. Psychiatric History: No pertinent psych hx Lives: Spouse/ Significant Other Smoking Status: Former smoker - With cigarette tobacco usage [place] 45 years prior. Tobacco Use: Non-smoker Alcohol: Occasional - From discussion with daughter and suspect the patient had heavier alcohol consumption prior to his CABG, currently now per drinks socially up to 2-3 drinks per sitting. Drugs: None - *Family History Maternal History Items: Cancer Paternal History Items: Cancer Review of Systems Unable to obtain accurate/complete ROS d/t: Unable to obtain ROS secondary to patient intubated, sedated status. VTE Information - Inpt Only VTE Present on Admission: No VTE Mechan Device Prophylaxis: SCD's VTE Pharm Prophylaxis ordered?: Yes Patient Problems: Active and Suspected Problems Cardiac arrest with ventricular fibrillation (Acute) Aspiration pneumonia (Acute) Encephalopathy acute (Acute) Hypokalemia (Acute) MARCO ANTONIO (acute kidney injury) (Acute) Subjective: Laying in the ED bed, intubated, sedated, recent suction with pink frothy material from ET tube, RT adjusting respiratory settings. Objective: Physical Examination: General: Unresponsive, currently sedated, intubated, laying in the ED bed, presented following cardiac arrest. Skin: normal color, turgor, no icterus, cyanosis well-healed midline sternotomy incision. HEENT: AT/NC, EOM unable to be assessed, pupils pinpoint bilaterally, moderately dry MM, no carotid bruits or JVD noted. Lungs: Diffusely coarse, intubated, symmetric rise, rhonchorous, no obvious wheezing, despite recently intubated status notable abdominal muscle usage. Heart: Irregular irregular; no gallop, rub audible. Abdomen: soft, obese, NTTP, ND, normal BS, no HSM. Extremities: no cyanosis, clubbing, bilateral lower extremity pedal edema. Neurological: Unresponsive, currently sedated, intubated, laying in the ED bed, presented following cardiac arrest; cognitive function not baseline intact; pupils pinpoint; cranial nerves unable to be assessed, intubated, sedated. Psychiatric: affect appears flat, sedated, no acute evidence of depressive or anxiety feelings. - Physical Exam Vitals/I&O's: Vital Signs Temp Pulse Resp BP Pulse Ox 96.8 F L 103 H 33 H 160/87 H 91 01/14/19 02:03 01/14/19 02:03 01/14/19 02:03 01/14/19 02:03 01/14/19 02:03 Oxygen Delivery Method Mechanical Ventilator Weight: 260 lb 12.909 oz Body Mass Index (BMI) 36.3 Intake and Output for Last 24 Hours 01/12/19 01/13/19 01/14/19 23:59 23:59 23:59 Intake Total 8.40 / 8.40 Balance 8.40 / 8.40 Laboratory Results 01/14/19 00:45: WBC 14.6 H, RBC 4.68, Hgb 12.4 L, Hct 40.5, MCV 86.5, MCH 26.5 L , MCHC 30.6 L, RDW Std Deviation 46.3 H, RDW Coeff of Stew 14.6, Plt Count 267, MPV 11.3, Neut % (Auto) Not Reportable, Absolute Neuts (auto) 6.1, Absolute Lymphs (auto) 7.74 H, Total Counted 100, Neutrophils % (Manual) 39 L, Band Neutrophils % 3, Lymphocytes % (Manual) 53 H, Monocytes % (Manual) 2, Eosinophils % (Manual) 3, Diff Path Review June, Reactive Lymphocytes 2+, Platelet Estimate ADEQUATE, RBC Morphology NORM C+C 01/14/19 00:45: Sodium 140, Potassium 3.1 L, Chloride 107, Carbon Dioxide 18.0 L , Anion Gap 15, BUN 18, Creatinine 1.51 H, Estim Creat Clear Calc 50.56, Est GFR (MDRD) Af Amer 60, Est GFR (MDRD) Non-Af 49 L, BUN/Creatinine Ratio 11.9, Glucose 295 H, Calcium 8.5, Magnesium 2.5, Troponin I 0.023 01/14/19 00:45: PT 13.5, INR 1.1, APTT 34.0 01/14/19 00:45: B-Natriuretic Peptide 180.3 H 01/14/19 02:01: Specimen Type ART, Sample Site R Radial, pH 7.29 L, Bicarbonate Actual 19.5 L, POC Total CO2 21, Base Excess -7 L, O2 Saturation 92 L, O2 % 60, ABG pCO2 40.2, ABG pO2 70 L, Ashish Test POS, Respiration Rate 14, O2 Delivery Device Vent, Minute Volume 16.00, Vent Mode A-C, Tidal Volume 500, POC PEEP 5, Blood Gas Notified Whom ED MD, Blood Gas Notified Time 155 Current Medications Propofol (Diprivan) 1,000 mg in 100 mls @ 7.098 mls/hr CONT INF .Q12H OZIEL; Protocol Last Titration: 01/14/19 02:03 Dose: 25 mcg/kg/min, 17.7 mls/hr Documented by: Potassium Chloride () 10 meq in 100 mls @ 100 mls/hr IV BOLUS NOW STA Stop: 01/14/19 02:45 Last Admin: 01/14/19 02:05 Dose: 100 mls/hr Documented by: Ampicillin Sodium/Sulbactam (Sodium 3 gm/ Sodium Chloride) 112 mls @ 150 mls/hr IV X1 ONE Stop: 01/14/19 02:44 Fentanyl () 100 mls @ 5 mls/hr IV UD OZIEL; Protocol Assessment/Plan All Active Problems Cardiac arrest with ventricular fibrillation (Acute) Aspiration pneumonia (Acute) Encephalopathy acute (Acute) Hypokalemia (Acute) MARCO ANTONIO (acute kidney injury) (Acute) The patient is a 68 y/o M w/ PMHx: PAF, HTN, CAD s/p CABG ~ 3 months prior, History of Bladder CA, GERD who presents to the [facility] ED on 01/14/19 with history of recently flying home on a flight from [place] approximately 6 to 7 hours prior to onset of symptoms, going to bed following which his noticed that he was breathing abnormally and difficult to arouse prompting her to call 911. 1. Cardiac arrest with ventricular fibrillation: Work-up in the ED included CBC with W BC 14.6, hemoglobin 12.4, platelet 264 with increased lymphocytes, unremarkable coags, ABG with pH 7.29, bicarb 19.5, PCO2 40, PO2 70 on the ventilator, BMP with potassium 3.1,, dioxide 18, BUN/creatinine 18/1.51, glucose 295, magnesium 2.5, troponin 0 0.023, BNP 180.3, chest x-ray with bilateral infiltrates with ET tube in the high position, CT brain with no acute intracranial finding with a left mastoid effusion, CTPA with no large or central peripheral pulmonary embolus although evaluation limited secondary to motion artifact, asymmetric bilateral infiltrates possibly asymmetric edema, pneumonia, aspiration pneumonia nor contusion, bilateral anterior rib fractures, EKG with sinus tachycardia with left bundle branch block with ST depression in the lateral precordial leads. Will admit to the ICU, initiate amiodarone bolus with transition to continuous infusion, trend cardiac enzymes, repeat EKG in a.m. and as needed, supplement potassium as noted, magnesium level obtained and noted to be normal, continue cooling methods per Pharmacy Manager direction, initiate heparin drip with bolus, cardiology consulted and aware of patient with planned evaluation in a.m, NE ASA. 2. Aspiration Pneumonia: Will maintain intubated status, continue ATC duonebs, PRN albuterol, maintained on IV Unasyn for aspiration, unclear findings on CT chest may have also been prior to aspiration events, to be cautious will obtain sputum culture, respiratory viral panel and urine antigens as well as blood culture x2. Functional Architect, Dr. Barrera consulted and aware of case, pending. 3. Acute kidney injury: Secondary to acute presentation as noted. Admission BUN/Cr 18/1.51, prior baseline creatinine noted to be 0.9-1.0. Will hydrate, hold nephrotoxic medications and repeat chemistry in AM. If no improvement would plan FeNa assessment. 4. Hypokalemia: Admission K+ 3.1, supplementation given, repeat level in AM. 5. Hyperglycemia: Admission glucose 295, HgbA1c ordered, NPO status, TF per ICU direction if appropriate, q 6 hour accu checks with ISS. 6. CAD: Recent CABG x 1 10/17/18, maintain on PRN aspirin, holding prior oral regimen given acute presentation with initiation of amiodarone bolus and continuation with infusion following, maintain on heparin drip as noted. 7. Valvular heart disease: Status post AVR, bovine with recent CABG, echo pending as noted. 8. Chronic atrial fibrillation: Patient s/p recent MAZE, heparin drip initiation as noted. 9. GERD: IV Famotidine. 10. DVT prophylaxis: SCDs, heparin drip as noted. 11. CODE status: Discussed CODE status at length including difference between FULL code, DNR-CCA and DNR-CC status. Following discussions about the differences in these status, requested continuation full CODE STATUS. Advanced Care Planning Face to Face Time: 16 minutes. Code Visit Inpatient E&M: 62413 Init Hosp L3 Procedures: 31955 Advncd Care Plan 30 Min
[2019-01-14] MEDS: fentaNYL 100 MCG/2 ML Ampul IV (02:30)
[2019-01-14] MEDS: fentaNYL drip 100 ML 5 MCG IV (02:50)
--- NOTE | 2019-01-14 02:55 | ED.RN ---
ice packs initiated at 0249. Core temp 97.3 F. Ice packs applied to right neck, groin, and each arm.
[2019-01-14] MEDS: Heparin Injection (Vial) 5,000 UNIT/ML VIAL 4000 UNIT SC (03:10)
--- NOTE | 2019-01-14 03:28 | RAD_ITS ---
STUDY: X-RAY CHEST REASON FOR EXAM: Male, 68 years old. Repositioned endotracheal tube TECHNIQUE: Portable chest COMPARISON: Same day FINDINGS: There is a metallic plate and screws within the lower cervical spine. An endotracheal tube with the tube tip 6.1 cm proximal to the rakesh. There is an oral gastric tube with the tip extending into the stomach. Stable left lung pulmonary infiltrates. There is interval worsening right upper lobe and right lower lobe pulmonary infiltrates. There is stable mild cardiomegaly. There are sternal wires. There is atrial clip.. Surgical clips within the right cervical soft tissues.. Normal mediastinum and bhavya. Normal visualized aortic arch and descending thoracic aorta. Osteopenia and degenerative changes thoracic spine. There is no demonstrated abnormality of the visualized soft tissue structures of the upper abdomen. RAD/Chest 1 View (Portable) IMPRESSION: lines and tubes as above Stable cardiomegaly Interval worsening pulmonary opacities secondary to pulmonary edema and/or pneumonia Electronically Signed: Christopher Kirby, at 5:38 EST Tel , Service support ,
[2019-01-14] MEDS: HEPARIN/D5w 25,000 UNITS 25,000 UNITS/250 ML IV.SOLN. 16 UNITS IV (03:52)
--- NOTE | 2019-01-14 03:53 | CPS ---
E.T. tube advanced 2cm to allow for better ventilation and oxygenation. PEEP, FiO2, RR increased. Vt decreased; maintain patient's oxygenation status
[2019-01-14] MEDS: Aspirin 81 MG TAB.CHEW 162 MG NG (04:38)
--- NOTE | 2019-01-14 04:38 | ED.RN ---
Son from [place] notified by S.O. about pt condition.
--- NOTE | 2019-01-14 04:41 | ED.RN ---
Titrating per order, at 0231 when propofol was increased to 35 mcg/kg/min pt RASS score dec to 0. Fentanyl gtt started at 0250. CPOT of 2.
--- NOTE | 2019-01-14 04:54 | ED.RN ---
pt with total of 100 ml of pink, frothy sputum from suction while in ED.
--- NOTE | 2019-01-14 05:09 | ED.RN ---
Propofol 10 ml bottle given to [facility] transport team.
--- NOTE | 2019-01-14 05:12 | ED.RN ---
[facility] transport at bedside at 0400.
--- NOTE | 2019-01-14 05:36 | ED.RN ---
Teresa called and notified that pt has left [facility].
[2019-01-16 14:12] LABS: Pathologist Review Reviewed
== END 2019-01-14 05:26 | disposition short-term general hospital (02) ==
LOC: ED 01:55 → ICU 02:54 → ED 04:09
PROVIDERS: Emergency Provider Emergency Medicine; Family Provider Internal Medicine; PCP Internal Medicine; Visit Provider Family Medicine
DX: I46.9 Cardiac arrest, cause unspecified (principal); I49.01 Ventricular fibrillation; J69.0 Pneumonitis due to inhalation of food and vomit; I25.10 Atherosclerotic heart disease of native coronary artery without angina pectoris; S22.43XA Multiple fractures of ribs, bilateral, initial encounter for closed fracture; X58.XXXA Exposure to other specified factors, initial encounter; G93.40 Encephalopathy, unspecified; E87.6 Hypokalemia; N17.9 Acute kidney failure, unspecified; I48.0 Paroxysmal atrial fibrillation; C67.9 Malignant neoplasm of bladder, unspecified; I10 Essential (primary) hypertension; E78.5 Hyperlipidemia, unspecified; K21.9 Gastro-esophageal reflux disease without esophagitis; I44.7 Left bundle-branch block, unspecified; R06.09 Other forms of dyspnea; Z95.1 Presence of aortocoronary bypass graft; Z87.01 Personal history of pneumonia (recurrent); Z79.01 Long term (current) use of anticoagulants; Z79.899 Other long term (current) drug therapy; Z87.891 Personal history of nicotine dependence
CPT/HCPCS: 31500; 31720; 36415; 36600; 51702; 70450; 71045; 71275; 80048; 82803; 83735; 83880; 84484; 85025; 85610; 85730; 93005; 94002; 96365; 96367; 96372; 96375; 99251; 99285; J7030; J7050; Q9967; A4216; G0463; J0295

== ENCOUNTER → 2019-03-28 09:39 | Outpatient (CLI) | payer MEDICARE, OTHER, SELFPAY ==
[2019-01-14 01:06] VITALS: BMI 36.3
--- NOTE | 2019-03-28 10:16 | PCM.CR.HP2 ---
CR - History & Physical - General Arrival date:: 03/28/19 Arrival time:: 09:45 Date of Referral:: 03/23/19 Date of CR Evaluation:: 03/28/19 Referring Physician: DR. SALAS HELLER @ [place], [place] Primary Diagnosis: S/P V-FIB CARDIAC ARREST, S/P CABG - History of Present Cardiac Event Onset Date: Enter Onset Date of cardiac illnesses in Comment field below Acute Myocardial Infarction within 12 months:: Yes - 01/14/2019 SUDDEN CARDIAC -NSTEMI Coronary Artery Bypass Graft:: Yes - 09/22/2018 Heart valve replacement or repair:: Yes - AVR 10/17/2018 Type of Symptoms:: SUDDEN CARDIAC Were there any complications?: PVC WITH SUSTAINED V.TACH, - Medications Home Medications: Ambulatory Orders Medication Instructions Recorded Albuterol Inhaler [Ventolin Hfa] 1 - 2 puff INHALATION Q4H PRN PRN 12/29/12 Omeprazole [Prilosec] 20 mg PO DAILY 12/29/12 Sotalol HCl [Betapace AF] 120 mg PO BID 12/29/12 Warfarin [Coumadin (PBKC)] 6 mg PO DAILY@1700 08/18/16 Aspirin [Aspirin EC] 81 mg PO 03/28/19 Atorvastatin Calcium [Lipitor] 40 mg PO QHS 03/28/19 Carvedilol [Coreg] 12.5 mg PO BID 03/28/19 Fluticasone 0.05% [Flonase Nasal 1 spray NASAL BID PRN 03/28/19 [place]] Fluticasone/Vilanterol [Breo 03/28/19 Ellipta 100-25 Mcg INH] Hydralazine HCl 25 mg PO BID 03/28/19 Isosorbide Dinitrate 10 mg PO BID 03/28/19 Omeprazole [Prilosec] 40 mg PO PRN 03/28/19 - Allergies Allergies/Adverse Reactions: Allergies No Known Allergies Allergy (Verified 05/26/17 15:01) - Sleep Disorder Evaluation Hx of Sleep Apnea: No Do you snore loudly (louder than talking or can be heard through closed doors)?: No Do you often feel tired/ fatigued/ sleepy during daytime?: No Has anyone observed you stop breathing during sleep?: No History of Hypertension (for STOP score): No STOP Results: Negative Advanced Directives - Advanced Directives Power of Senior Procurement Manager: No Living Will: No Advance Directives Information Provided: Yes Advance Directives on File: No DNR Order?:: No - MOLST See MOLST form: No Past Medical History - Past Medical Illness Medical History: Past Medical History (Last Updated 03/28/19 @ 10:34 by Joesph Robins CRT, PUMP STITCHER, BS) MARCO ANTONIO (acute kidney injury) N17.9 Acute hypoxemic respiratory failure J96.01 Acute hypoxemic respiratory failure J96.01 Aspiration pneumonia due to inhalation of vomitus J69.0 Cardiac arrest Onset Date: 01/14/19 I46.9 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 Implantable cardioverter-defibrillator (ICD) in situ Z95.810 Paroxysmal atrial fibrillation I48.0 Personal history of DVT (deep vein thrombosis) Z86.718 Primary hypertension I10 Retroperitoneal hematoma K66.1 Severe aortic valve stenosis I35.0 Acute on chronic systolic CHF (congestive heart failure) I50.23 - Past Surgical History Surgical History: Past Surgical History (Last Updated 03/28/19 @ 10:33 by Joesph Robins, CORDELL, PUMP STITCHER, BS) History of right-sided carotid endarterectomy Z98.890 S/P CABG (coronary artery bypass graft) Onset Date: ~01/09/19 Z95.1 S/P Maze operation for atrial fibrillation Z98.890, Z86.79 S/P left atrial appendage ligation Z98.890 Status post Maze operation for atrial fibrillation Z98.890, Z86.79 Surgical History: adenoidectomy, appendectomy, tonsillectomy, - - CD status post recent CABG, PAF, history of bladder cancer, hypertension, hyperlipidemia. Social History - Smoking History Smoking Status: Former smoker Years Smokin Packs Smoked per Day: 1 Hx Smoking Cessation Date: 03/28/16 Hx Tobacco Use: Yes Hx Smoking Exposure: No - Alcohol Use Alcohol Usage: Yes - MODERATE WEEKEND WORRIOR, WINE WITH DINNER ETC. - Substance Abuse Hx Substance Use: No - Occupation Occupation (List type of work in comments):: Employed Hours worked per day:: 12 Returned to work on:: 02/02/19 - Hobbies, Recreation, Social Activities Hobbies: Sports - [place] - VAC[place], Other - WORK ENJOY MY WORK Recreational Activities: I am able to engage in most, but not all activities - 75% PERCENT BACK TO REGULAR ACTIVITY Social Environment - Status Marital Status: - Current Living Arrangements Living Environment:: Spouse - Children How many children do you have?: 1 - VENKAT Do any of your children live nearby?: Yes - [place] - Safety Do you feel safe in your surroundings?: Yes - Assistance Do you need any assistance at home?: NONE Review of Systems - Review of Systems Hints: Right click = Denies (Slash). Left click = Reports ([place]) Review of Present Symptoms: Reports: Shortness of Breath with Exertion - A LITTLE, WALKING TWO-FLIGHTS OF STAIRS NOW WITHOUT ANY REAL ISSUE, Dizziness/Lightheadedness - SOMETIMES, Fatigue, Heart Arrhythmia/Irregularities - V-FIB AND PAROXYSMAL ATRIAL FIB, HAS IMPLANTABLE DEFIBRILLATOR FOR THE V-FIB AND HAS HAD NO RECURRING EVENTS, Appetite - Normal, Appetite - Special Diet - LOSS 60 POUNDS, LIVING WELL DIET AND MAINTAINING, Sleep - Normal. Denies: Sexual Changes - Pain Is Patient Pain Free?: Yes Pain Location: none Pain Level: 0/10 Risk Factor Assessment - Chief Complaint Chief Complaint: PATIENT IS A 68 YR OLD MALE WHO PRESENTST O CR TODAY FOLLOWING RECENT SUDDEN CARDIAC DUE TO V-FIB ARREST. - Vital Signs Temperature: 98.5 F Respiratory Rate: 14 Pulse Ox: 96 Blood Pressure: 148/68 - Pulse Pulse Rate: 61 Pulse Rhythm: Regular - Hypertension Blood Pressure Sitting - Right Arm: 148/68 Blood Pressure Sitting - Left Arm: 148/68 - Stress Stress: Recent - Blood Cholesterol/Lipids Total Cholesterol (mg/dL) Goal = less than 200 mg/dL: 0 - Obesity Height: 6 ft Weight:: 240 lb Weight in Pounds: 240.0 lbs Weight Source: Standing Scale Body Mass Index (BMI): 32.5 Nutritional Referral for Obesity: Yes - Physical Inactivity Physical Inactivity: Reg Exercise 30 min/day - Risk Stratification Risk Guidelines: Lowest Risk: Risk Factor for Smoking, Risk Factor for Dyslipidemia, Risk Factor for Diabetes, Risk Factor for Hypertension, Risk Factor for Sedentary Lifestyle, Highest Risk: Risk Factor for Obesity - For Smoking Smoking Risk Guidelines: Smoking Low Risk: None or quit greater than 6 months ago. Smoking Moderate Risk: Smoker or quit 6 months or less ago. Smoking High Risk: Smoker - For Dyslipidemia Dyslipidemia Risk Guidelines: Low Risk: Moderate Risk: High Risk: 15-25% fat 25.1-29% fat >/= 30% fat. <7% sat fat 7-9% sat fat >9% sat fat. <150 mg chol 150-299 mg chol >/= 300 mg chol. LDL <100 LDL 100-129 LDL >/= 130. Chol/HDL ratio <5.0 Chol/HDL ratio 5.0-6.0 Chol/HDL ratio >6.0. Triglycerides <100 Triglycerides 100-149 Triglycerides >/= 150 - For Diabetes Mellitus Diabetes Risk Guidelines: Diabetes Low Risk: HgA1c <6.5% and/or FBG <120. Diabetes Moderate Risk: HgA1c 6.6-7.9% and/or FBG 120-180. Diabetes High Risk: HgA1c >/= 8% and/or FBG >180 - For Obesity/Overweight Obesity/Overweight Risk Guidelines: Obesity Low Risk: BMI <25.0. Obesity Moderate Risk: BMI 25-29.9. Obesity High Risk: BMI >/= 30.0 - For Hypertension Hypertension Risk Guidelines: Hypertension Low Risk: Systolic <120 and Diastolic <80. Hypertension Moderate Risk: Systolic 120-139 and Diastolic 80-89. Hypertension High Risk: Systolic >/= 140 and Diastolic >/= 90 - For Sedentary Lifestyle Sedentary Lifestyle Risk Guidelines: Sedentary Lifestyle Low Risk: >/= 1,500 kcal/week. Sedentary Lifestyle Moderate Risk: 700-1,499 kcal/week. Sedentary Lifestyle High Risk: < 700 kcal/week - For Depression Depression Risk Guidelines: Depression Low Risk: Not clinically depressed. Depression Moderate Risk: Mildly depressed. Depression High Risk: Clinically depressed Motivation - Motivation to Participate On a scale of 1 to 10, how prepared are you to commit to attending program?: 10 What do you see as barriers to successfully being able to complete the program?: NONE What do you see as the benefits of succesfully completing the program? In other words, what do you hope to get out of participating in the program?: GETTING BACK TO NORMAL ACTIVITY, HEALTHIER LIFESTYLE, Are there issues you are dealing with that will interfere with completing the program?: WORK SCHEDULE Do you have a spouse or signficant other, family or friends who will help support you to complete the program?: YES
--- NOTE | 2019-03-28 10:16 | PCM.CR.ITP ---
Diagnosis - General Information Admitting Diagnosis: S/P V-FIB CARDIAC ARREST, CABG Personal Learning Style:: Audio/Visual, Group, Written Barriers to Learning: No Barriers Stage of change r/t lifestyle modifications:: Action Gave educational material for:: Treating Heart Disease, Emotions & Heart Disease, Stress Management & Relaxation, Sleep Disorders & Heart Disease, How The Heart Works, What it means to have Heart Disease, How Coronary Artery Disease is Diagnosed, Heart Procedures, What Heart Medications Do, Risk Factors & Modifications, Living an Active Life, Nutrition - Education/Goals Individual Counseling: Initial Assessment: Abnormal Cholesterol Levels, High Blood Pressure Cardiac Rehabilitation Goals: 1. Maintain the individual as the primary focus of care. 2. To improve the patient's quality of life. 3. Identification of cardiac risk factors and provide cardiac risk factor management. 4. Enhance the psychosocial status of the patient. 5. Reconditioning enough to allow the patient to resume customary activities. 6. Control symptoms of cardiac disease Personal Goals: Initial Assessment: Improve management of stress and emotions, Improve energy level, Get back to work, or to resume activities faster, Improve knowledge of cardiac disease, Improve muscle strength and endurance, Improve diet and eating habits (eat healthier) Scale for measuring improvement of personal goals: Enter appropriate number in Comments. 2 = Unchanged. 3 = Slightly Better. 4 = Moderate Improvement. 5 = Met my Goal Exercise - Initial Assessment - Visit Date of Eval: 03/28/19 Mets: Pre-: >7 METS for 30 minutes by discharge - Physician Prescribed Exercise Modalities: Treadmill, Airdyne, NuStep Frequency: 3x/week for 12 weeks [36 sessions] Intensity: 60-80% of age predicted maximum heart rate reserve Current METSs:: 3.5 Target Heart Rate:: 100-130 Target RPE 12-16:: 12-16 Resting Blood Pressure: 156/80 - Outcomes & Goals Goals:: Verbalizes understanding of THR, RPE & goal METS by session 6, Documents in home exercise log/reports 30 min aerobic 5 day/wk by DC, Demonstrates accurate pulse taking by DC - Intervention & Plan Exercise Program Goals: Instruct on personal THR & RPE, Instruct on MET level & personal MET goal, Show patient to take own pulse /validate performance until accurate, Instruct on home exercise - Physical Activity Home Exercise Physical Activity - Home Exercise: Safe Exercise, Warm-up, Self-monitoring, Cool-Down, Home Exercise > 30 min Daily, Sitting Time <3 hours/daily - Outcomes & Goals Outcomes/Goals: Demonstrates correct Warm-up/exercise Cool-Down (S3) if = 2.5 METs, Verbalizes symptoms of exercise intolerance by Session 3 (S3), Demonstrate safe equipment use (S3) & follows exercise prescrition (6) - Intervention & Plan Plan/Intervention: Instruct warm-up & cool-down if exercising at > 2 METs, Instruct on symptoms of exercise intolerance & actions to take, Instruct & monitor on saf, Assess intial functional capacity & safety risk Nutrition - Initial Assessment - Program Goals Nutrition Program Goals: LDL <100 optimal. 100 - 129 Near optimal. 130 - 159 Borderline High. 160 - 189 High. Total Cholesterol <200 desirable. 200 - 239 Borderline High. >/= 240 High. HDL < 40 Low >/=60 High. Triglycerides <150 desirable. <199 optimal. VlDL 5 - 40. HgbA1C <7%. BMI <25 - Visit Date of Assessment:: 03/28/19 Session #:: 0 - INITIAL CR EVALUATION - Cholesterol/Lipids Triglycerides (mg/dL): 0 - NOT AVAILABLE Determine presence & major risk factors that modify LDL goal: Hypertension or hypertensive medication, Age men > 45 years; women >/= 55 years Outcomes/Goals: Pt IDs own risk factors & lifestyle modifications by Session 10, Verbalizes symptoms of angina & response by session 3., Pt independently manages Intervention/Plan: Instruct on personal lipid levels & lipid goals/NCEP guidelines, Instruct on cholesterol - Diabetes (Other Core Measures) Diabetes Type: Not Applicable - Weight Mgt (Other Care) Not Applicable: Yes Height: 6 ft Weight:: 225 lb BMI: 30.5 Diagnosis Overweight/Obesity BMI> 30% ICD-10 E66: Yes Diagnosis High BMI/Morbid Obesity BMI> 35% ICD-10 Z68: No Outcomes/Goals: Pt sets, maintains & shows weight loss goal & trend during rehab Intervention/Plan: Instruct on ideal BMI & set weight loss goal w/patient, Assist pt to ID & incorporate diet changes for weight loss by S9, Refer to Structured Weight Loss program as appropriate, Encourage goal of using 250-300dcal per session for weight loss - Healthy Eating Habits Will attend diet classes:: Yes Outcomes/Goals:: Consume diet rich in vegs,fruits,whole grain/high fiber,fish,lean meat, Limit sat/trans fats,cholesterol & added salts & sugars Intervention/Plan:: Assess current eating habits - Education Gave educational materials for:: Healthy eating Medical - Initial Assessment - Visit Date of Eval: 03/28/19 Session #:: 0 - INITIAL EVALUATION - Medication Compliance Preventative Medication(s):: Aspirin, Clopidogrel/P2Y12 inhibit, Statin/lipid H/O mental health issues: depression, anxiety, or addiction?: No Doesn?t believe in the benefits of treatment?: No Believes medications are unnecessary or harmful?: No Has a concern about medication side effects?: No Outcomes/Goals: Verbalizes medications,desired effect & common side effects @ DC, Pt self-reports following medication regimen, Keeps card in wallet w/medications listed by DC Interventions/plans: Instruct on medication effects & side effects, Review medication list w/patient every two weeks, Instruct importance of taking meds as ordered & assist problem solving - Tobacco Use Tobacco Use: Non-smoker Do you use smokeless tobacco?: No - Hypertension Resting Blood Pressure:: 158/80 [place] [employer] Hypertension Guidelines: [place] [employer] Hypertension Guidelines. Normal BP Less than 120/80. Elevated BP 120/80. Hypertension Stage 1: BP 130-139/80-89. Hypertesnion Stage 2: BP 140 or higher/90 or higher. Hypertension Crisis: BP higher than 180/120 Outcomes/Goals: Able to verbalize/achieve optimal blood pressure <130/80, Incorporates diet changes & exercise for blood pressure control by DC Interventions/plan: Instruct on optimal blood pressure, hypertension & medications, Instruct on effects of sodium, alcohol, stress, exercise &hypertension - Tobacco Cessation Referral Smoking Cessation Referral:: No Individual Education/Counseling:: No Education Schedule Given:: Yes Psychosocial - Initial Assess - VIsit Date of Eval: 03/28/19 Not Applicable: Yes History of Emotional Disorders: Depression - BASED ON PHQ-9 SCORE MODERATE DEPRESSION - Target Goals Target Goals: Assess presence or absence of depression. Using a valid screening tool, maximizes coping skills. Positive support system - Psychosocial Test Tool Used:: [place] QOL Cardiac, PHQ-9 Questionnaire phq-9 Severity: Severity. 1-4 Minimal Depression. 5-9 Mild Depression. 10-14 Moderate Depression. 15-19 Moderately Sever Depression. 20-27 Severe Depression. Rule: - Referral to Behavioral Health PS - Interventions: Yes Referral to Behavioral Health if PHQ-9 score >9:, Yes Referral to Physician if PHQ-9 if score is 5-9: - DR. BERUMEN, Yes Attend Stress Management Classes, No Referral to [facility] - DEALING WITH SUDDEN CARDIAC - Outcomes/Goals: See list Psychosocial Outcomes/Goals:: ID's personal stressors & 2 strategies to manage stress by discharge - Intervention/Plan: See List Interventions/Plan:: Assess stressors,coping strategies & signs of derpression on admission, Instruct/assist pt to develop coping & personal stress Mgt strategies, Refer to Behavioral Health if appropriate, Refer to Physician if appropriate - PATIENT EXPRESSED ALOT OF EMOTIONAL DEPRESSION DEALING WIHT SUDDEN CARDIAC , REFLECTS ON HIS PHQ-9 SCORE, Instruct patient to recognize signs & symptoms of depression, Instruct patient to recog Patient Health Questionnaire Initial Assessment 1. Little interest or pleasure in doing things: More than half the days 2. Feeling down, depressed, or hopeless: More than half the days 3. Trouble falling or staying asleep, or sleeping too much: More than half the days 4. Feeling tired or having little energy: More than half the days 5. Poor appetite or overeating: Several days 6. Feeling bad about yourself -- or that you are a failure or have let yourself or your family down: More than half the days 7. Trouble concentrating on things, such as reading the newspaper or watching television: More than half the days 8. Moving or speaking so slowly that other people could have noticed. Or the opposite - being so fidgety or restless that you have been moving around a lot more than usual: Several days 9. Thoughts that you would be better off , or of hurting yourself in some way: Not at all How difficult have these problems made it for you to do your work, take care of things at home, or get along with other people?: Somewhat difficult Total Score: 14 LUCILLE-Q SV Test - Statements CAD is a disease of the arteries in the heart: False Examples of risk factors for heart disease: True Angina is chest pain or discomfort: I Don't Know The benefits of resistance training include: True Eating more meat and dairy products: False Anti-platelet medications such as aspirin are important: True The only effective way to manage stress: False An exercise warm-up slowly increases heart rate: True Prepared, processed foods usually have high sodium: True Depression is common after a heart attack: True The statin medications lower cholesterol: True To control blood pressure, lower the amount of sodium: True If someone gets chest discomfort during walking: False Transfats are partially hydrogenated vegetable oils: I Don't Know Sleep apnea that is not treated increases the risk: True To control cholesterol, one should become a vegetarian: False Someone knows if he/she is exercising at the right level: I Don't Know Diabetes cannot be prevented with exercise & health eating: False Stress is a large risk for heart attack: True A diet that can help lower blood pressure is rich in: True - Total Score Total Correct Responses: 16 Self-Efficacy Initial Assessment We would like to know how confident you are in doing certain activities. Please select your confidence level for:: Select your confidence level for the following using the scale 1-10 where 1 is not at all confident and 10 is totally confident. Your score is the average of all 6 responses. Fatigue: How confident are you that you can keep the fatigue caused by your disease from interfering with the things you want to do? Select Number: 6 Physical Discomfort or Pain: How confident are you that you can keep the physical discomfort or pain of your disease from interfering with the things you want to do? Select Number: 6 Emotional Distress: How confident are you that you can keep the emotional distress caused by your disease from interfering with the things you want to do? Select Number: 4 Other Symptoms or Health Problems: How confident are you that you can keep other symptoms or health problems from interfering with the things you want to do? Select Number: 4 Different Tasks and Activities: How confident are you that you can do the different tasks and activities needed to manage your health condition so as to reduce your need to see a doctor? Select Number: 4 Medication: How confident are you that you can do things other than just taking medication to reduce how much your illness affects your everyday life? Select Number: 4 Total Score:: 4 Nutrition Survey - Nutrition Survey Instructions Scoring Instructions: Scoring is as follows: Yes = 1 points. No = 0 point. Patient score that is >/=12 is considered to be at potential nutritional risk and could benefit from a referral to a registered dietitian. - Nutrition Survey Initial Have you lost >10 lbs over the past 2 months without trying?: No Are you following a special diet at home for diabetes, low fat, or low salt?: Yes Are you interested in meeting with a dietitian for help understanding your diet?: No Do you eat less than 3 meals a day?: Yes Do you eat fatty meats (caruso, sausage, ribs, etc), fried foods, desserts, large amounts of salad dressings, margarine, butter, or cheese most days?: No Do you have food allergies? [Enter types in comment field]: No Do you eat in restaurants more than 3 times a week?: Yes Do you season food with salt, seasoning salt, or garlic salt?: No Do you used canned, boxed, frozen meals, or soups, seasoning packets?: No Total Score:: 3
[2019-03-28 10:59] VITALS: BP 148/68; PULSE 61; RESP 14; TEMP 36.9; O2SAT 96; BMI 32.5
[2019-03-28 11:19] VITALS: BP 156/80; BP 158/80; BMI 30.5
== END ==
PROVIDERS: PCP Internal Medicine
DX: Z95.1 Presence of aortocoronary bypass graft (principal); I25.10 Atherosclerotic heart disease of native coronary artery without angina pectoris; I10 Essential (primary) hypertension; E78.5 Hyperlipidemia, unspecified; N17.9 Acute kidney failure, unspecified; C67.9 Malignant neoplasm of bladder, unspecified; E66.9 Obesity, unspecified; Z68.30 Body mass index [BMI] 30.0-30.9, adult

== ENCOUNTER 2019-04-19 15:15 | Outpatient (RCR) | payer MEDICARE, OTHER, SELFPAY ==
[2019-01-14 01:06] VITALS: BMI 36.3
== END 2019-04-22 23:59 ==
LOC: CR 15:15
PROVIDERS: PCP Internal Medicine
DX: I46.9 Cardiac arrest, cause unspecified (principal)
CPT/HCPCS: 93798

== ENCOUNTER 2019-05-05 15:15 | Outpatient (RCR) | payer MEDICARE, OTHER, SELFPAY ==
[2019-03-28 10:59] VITALS: BMI 32.5
[2019-03-28 11:19] VITALS: BMI 30.5
--- NOTE | 2019-05-01 07:17 | CR.ITP_ITS ---
Diagnosis - General Information Admitting Diagnosis: CABG, VF cardiac arrest Personal Learning Style:: Audio/Visual, Written Barriers to Learning: No Barriers Stage of change r/t lifestyle modifications:: Action Gave educational material for:: Treating Heart Disease, Emotions & Heart Disease, Stress Management & Relaxation, Sleep Disorders & Heart Disease, How The Heart Works, What it means to have Heart Disease, How Coronary Artery Disease is Diagnosed, Heart Procedures, What Heart Medications Do, Risk Factors & Modifications, Living an Active Life, Nutrition - Education/Goals Individual Counseling: Initial Assessment: Abnormal Cholesterol Levels, High Blood Pressure, Overweight/Obesity Cardiac Rehabilitation Goals: 1. Maintain the individual as the primary focus of care. 2. To improve the patient's quality of life. 3. Identification of cardiac risk factors and provide cardiac risk factor management. 4. Enhance the psychosocial status of the patient. 5. Reconditioning enough to allow the patient to resume customary activities. 6. Control symptoms of cardiac disease Personal Goals: Initial Assessment: Improve management of stress and emotions - 3, Improve energy level - 3, Get back to work, or to resume activities faster - 3, Improve knowledge of cardiac disease - 3, Improve muscle strength and endurance - 3, Control risk factors (learn risk factor modification) - 3 Scale for measuring improvement of personal goals: Enter appropriate number in Comments. 2 = Unchanged. 3 = Slightly Better. 4 = Moderate Improvement. 5 = Met my Goal - Diagnosis & Disease Process Outcomes/Goals: Pt IDs own risk factors & lifestyle modifications by Session 10, Verbalizes symptoms of angina & response by session 3., Pt independently manages Plan/Interventions: Assist Pt to ID & engage in lifestyle modification to reduce CVD risk, Instruct on individual risk factors, Review symptoms of angina & emergency actions, Review secondary diagnosis & identify educational needs. 30 day Reassessments:: Progressing Exercise - 30-day Assessment - Visit Date of Eval: 05/01/19 Session #:: 11 - Physician Prescribed Exercise Modalities: Treadmill, Rower, Airdyne, NuStep Frequency: 3x/week for 12 weeks [36 sessions] Intensity: 60-80% of age predicted maximum heart rate reserve Current METSs:: 5.5 increase from 2.5 Target Heart Rate:: 100-130 Current RPE:: 12-13 Maximum Excercise HR:: 106 Resting Blood Pressure: 144/78 - remains elevated report to physician Maximum Exercise Blood Pressure: 164/74 EKG Type: NSR with BBB with occasional PACs and PVCs. Current Physical Activity or Exercising minutes: Alot of traveling with work. - Outcomes & Goals Goals:: Verbalizes understanding of THR, RPE & goal METS by session 6, Documents in home exercise log/reports 30 min aerobic 5 day/wk by DC, Demonstrates accurate pulse taking by DC - Intervention & Plan Exercise Program Goals: Instruct on personal THR & RPE, Instruct on MET level & personal MET goal, Show patient to take own pulse /validate performance until accurate - 30-day Reassessments 30 day Reassessments:: Progressing - Physical Activity Home Exercise Physical Activity - Home Exercise: Safe Exercise, Warm-up, Self-monitoring, Cool-Down, Home Exercise > 30 min Daily, Sitting Time <3 hours/daily - Outcomes & Goals Outcomes/Goals: Demonstrates correct Warm-up/exercise Cool-Down (S3) if = 2.5 METs, Verbalizes symptoms of exercise intolerance by Session 3 (S3), Demonstrate safe equipment use (S3) & follows exercise prescrition (6) - Intervention & Plan Plan/Intervention: Instruct warm-up & cool-down if exercising at > 2 METs, In struct on symptoms of exercise intolerance & actions to take, Instruct & monitor on saf, Assess intial functional capacity & safety risk - 30-day Reassessments 30 day Reassessments:: Progressing Nutrition - 30-Day Assessment - Program Goals Nutrition Program Goals: LDL <100 optimal. 100 - 129 Near optimal. 130 - 159 Borderline High. 160 - 189 High. Total Cholesterol <200 desirable. 200 - 239 Borderline High. >/= 240 High. HDL < 40 Low >/=60 High. Triglycerides <150 desirable. <199 optimal. VlDL 5 - 40. HgbA1C <7%. BMI <25 Patient has diagnosis of Hyperlipidemia (ICD E78)?: Yes - Visit Date of Assessment:: 05/01/19 Session #:: 11 - Cholesterol/Lipids Triglycerides (mg/dL): 0 - not furnished by referring physician Determine presence & major risk factors that modify LDL goal: Hypertension or hypertensive medication, Family history of premature CHD in Male < 55 years: female <65 yearsFa, Age men > 45 years; women >/= 55 years Outcomes/Goals: Pt IDs own risk factors & lifestyle modifications by Session 10, Verbalizes symptoms of angina & response by session 3., Pt independently manages Intervention/Plan: Instruct on personal lipid levels & lipid goals/NCEP guidelines, Instruct on cholesterol Referral to dietitian:: Yes 30-day Reassessments:: Progressing - Diabetes (Other Core Measures) Diabetes Type: Not Applicable - Weight Mgt (Other Care) Not Applicable: No Height: 6 ft Weight:: 246 lb BMI: 33.3 Diagnosis Overweight/Obesity BMI> 30% ICD-10 E66: Yes Diagnosis High BMI/Morbid Obesity BMI> 35% ICD-10 Z68: No Outcomes/Goals: Pt sets, maintains & shows weight loss goal & trend during rehab Intervention/Plan: Instruct on ideal BMI & set weight loss goal w/patient, Assist pt to ID & incorporate diet changes for weight loss by S9, Refer to Structured Weight Loss program as appropriate, Encourage goal of using 250- 300dcal per session for weight loss 30 day Reassessments:: Not Met - Healthy Eating Habits Will attend diet classes:: Yes Outcomes/Goals:: Consume diet rich in vegs,fruits,whole grain/high fiber,fish,lean meat, Limit sat/trans fats,cholesterol & added salts & sugars Intervention/Plan:: Assess current eating habits 30-day Reassessments:: Progressing - Education Gave educational materials for:: Healthy eating Medical- 30-Day Assessment - Visit Date of Eval: 05/01/19 - Medication Compliance Preventative Medication(s):: Aspirin, CAMILA inhibitor, Statin/lipid, Beta kathryn, Warfarin/Coumadin H/O mental health issues: depression, anxiety, or addiction?: No Doesn?t believe in the benefits of treatment?: No Believes medications are unnecessary or harmful?: No Has a concern about medication side effects?: No Expresses concern over the cost of medications?: No Outcomes/Goals: Verbalizes medications,desired effect & common side effects @ DC, Pt self-reports following medication regimen, Keeps card in wallet w/medications listed by DC Interventions/plans: Instruct on medication effects & side effects, Review medication list w/patient every two weeks, Instruct importance of taking meds as ordered & assist problem solving 30-day Reassessments:: Progressing - Tobacco Use Tobacco Use: Non-smoker - Hypertension Hypertension Diagnosis:: Hypertension ICD-10 I10 Resting Blood Pressure:: 144/78 - remains elevated report sent to manager emergency [place] [employer] Hypertension Guidelines: [place] [employer] Hypertension Guidelines. Normal BP Less than 120/80. Elevated BP 120/80. Hypertension Stage 1: BP 130-139/80-89. Hypertesnion Stage 2: BP 140 or higher/90 or higher. Hypertension Crisis: BP higher than 180/120 Peak Exercise Blood Pressure:: 164/74 Outcomes/Goals: Able to verbalize/achieve optimal blood pressure <130/80, Incorporates diet changes & exercise for blood pressure control by DC Interventions/plan: Instruct on optimal blood pressure, hypertension & medications, Instruct on effects of sodium, alcohol, stress, exercise &hypertension 30 day Reassessments:: Progressing - Tobacco Cessation Referral Smoking Cessation Referral:: No Individual Education/Counseling:: No Education Schedule Given:: Yes Psychosocial - 30-Day Assess - VIsit Date of Eval: 05/01/19 Session #:: 11 Not Applicable: No History of previous Mental disease:: Yes History of Emotional Disorders: Depression Self-reported stressors: Medical/Health, Recent Illness - Target Goals Target Goals: Assess presence or absence of depression. Using a valid screening tool, maximizes coping skills. Positive support system - Psychosocial Test Tool Used:: [place] QOL Cardiac, PHQ-9 Questionnaire phq-9 Severity: Severity. 1-4 Minimal Depression. 5-9 Mild Depression. 10-14 Moderate Depression. 15-19 Moderately Sever Depression. 20-27 Severe Depression. Rule: See PHQ-9 Score: 14 Total Score:: 14 - Patient could benefit from professional behavioral counseling - Referral to Behavioral Health PS - Interventions: Yes Referral to Behavioral Health if PHQ-9 score >9:, Yes Referral to Physician if PHQ-9 if score is 5-9:, Yes Attend Stress Management Classes, No Referral to [facility] - Outcomes/Goals: See list Psychosocial Outcomes/Goals:: ID's personal stressors & 2 strategies to manage s tress by discharge - Intervention/Plan: See List Interventions/Plan:: Assess stressors,coping strategies & signs of derpression on admission, Instruct/assist pt to develop coping & personal stress Mgt strategies, Instruct patient to recognize signs & symptoms of depression, Instruct patient to recog - 30-day Reassessments: 30 day Reassessments:: Progressing Patient Health Questionnaire 30-Day Re-eval Assessment 1. Little interest or pleasure in doing things: More than half the days 2. Feeling down, depressed, or hopeless: More than half the days 3. Trouble falling or staying asleep, or sleeping too much: More than half the days 4. Feeling tired or having little energy: More than half the days 5. Poor appetite or overeating: Several days 6. Feeling bad about yourself -- or that you are a failure or have let yourself or your family down: More than half the days 7. Trouble concentrating on things, such as reading the newspaper or watching television: More than half the days 8. Moving or speaking so slowly that other people could have noticed. Or the opposite - being so fidgety or restless that you have been moving around a lot more than usual: Several days 9. Thoughts that you would be better off , or of hurting yourself in some way: Not at all How difficult have these problems made it for you to do your work, take care of things at home, or get along with other people?: Somewhat difficult Total Score: 14 Self-Efficacy 30-Day Re-eval Assessment We would like to know how confident you are in doing certain activities. Please select your confidence level for:: Select your confidence level for the following using the scale 1-10 where 1 is not at all confident and 10 is totally confident. Your score is the average of all 6 responses. Fatigue: How confident are you that you can keep the fatigue caused by your disease from interfering with the things you want to do? Select Number: 7 Physical Discomfort or Pain: How confident are you that you can keep the physical discomfort or pain of your disease from interfering with the things you want to do? Select Number: 7 Emotional Distress: How confident are you that you can keep the emotional distress caused by your disease from interfering with the things you want to do? Select Number: 6 Other Symptoms or Health Problems: How confident are you that you can keep other symptoms or health problems from interfering with the things you want to do? Select Number: 5 Different Tasks and Activities: How confident are you that you can do the different tasks and activities needed to manage your health condition so as to reduce your need to see a doctor? Select Number: 6 Medication: How confident are you that you can do things other than just taking medication to reduce how much your illness affects your everyday life? Select Number: 6 Total Score:: 6
[2019-05-01 07:27] VITALS: BP 144/78; BP 164/74; BMI 33.3
== END 2019-05-23 23:59 ==
LOC: CR 15:15
PROVIDERS: PCP Internal Medicine
DX: I46.9 Cardiac arrest, cause unspecified (principal)
CPT/HCPCS: 93798

== ENCOUNTER 2019-10-08 17:04 | Observation (INO) | payer MEDICARE, OTHER, SELFPAY ==
[2019-03-28 10:59] VITALS: BMI 32.5
[2019-05-01 07:27] VITALS: BMI 33.3
[2019-10-08 17:05] VITALS: BP 167/107; PULSE 104; RESP 18; TEMP 36.6; O2SAT 99; BMI 34.0
--- NOTE | 2019-10-08 17:33 | EKG12_ITS ---
Test Reason : CP Blood Pressure : / mmHG Vent. Rate : 104 BPM Atrial Rate : 065 BPM P-R Int : 000 ms QRS Dur : 168 ms QT Int : 382 ms P-R-T Axes : 000 -04 181 degrees QTc Int : 502 ms Atrial fibrillation with rapid ventricular response Left bundle branch block Abnormal ECG Confirmed by THERESA MACIAS, ISSAC ([id number]), state editor STU MARTINEZ ([id number] on 10/09/2019 3:48:37 PM Referred By: DC Confirmed By:ISSAC CARDENAS MD
--- NOTE | 2019-10-08 17:40 | RAD_ITS ---
STUDY: X-RAY CHEST REASON FOR EXAM: Male, 69 years old. CHEST PAIN TECHNIQUE: AP COMPARISON: 01/14/2019 FINDINGS: EKG leads project over the chest. Two lead cardiac conduction device is seen via the left subclavian vein with lead tips projecting over the right atrium and right ventricle, respectively. Fusion hardware of the lower cervical spine noted. Sternal wires and mediastinal surgical clips compatible with prior CABG. Atrial appendage clip noted. Lungs continue to be hyperinflated. No airspace consolidation. There is no demonstrated pleural abnormality. Normal size heart. Normal mediastinum and bhavya. Normal visualized pulmonary arteries. There is atherosclerosis of the aortic arch. No acute bony process. There is no demonstrated abnormality of the visualized soft tissue structures of the upper abdomen. RAD/Chest 1 View (Portable) IMPRESSION: 1. No airspace consolidation or pleural effusion. 2. Hyperinflation suggesting chronic obstructive airway disease. Electronically Signed: Jason Shine MD ([place]) at 17:53 EDT , Service support ,
[2019-10-08 17:45] LABS: Absolute Neutrophil Count 4.1 X10^3/uL (2.0-7.7); Basophil# 0.04 X10^3/uL; Basophil% 0.5 % (0-1); Eosinophil# 0.24 X10^3/uL; Eosinophils% 3.1 % (0-5); Hematocrit 38.2 % (40-54); Hemoglobin 12.2 g/dL (13.0-16.5); Lymphocyte % 33.3 % (19-41); Mean Corp Hgb Conc 31.9 g/dL (32-36); Mean Corpuscular Volume 84.5 fL (80-94); Mean Platelet Vol. 11.4 fl (6.2-12.0); Monocyte# 0.79 X10^3/uL; Monocyte% 10.1 % (0-10); NRBC Flagged by Analyzer 0 % (0-5); Neutrophil # 4.12 X10^3/uL (2.7-7.7); Neutrophil % 52.7 % (47-70); Platelet Count 262 K/mm3 (150-450); RBC Distribution Width CV 13.8 % (11.6-14.6); RBC Distribution Width SD 42.9 fl (35.1-43.9); Red Blood Count 4.52 M/mm3 (4.6-6.2); White Blood Count 7.8 K/mm3 (4.4-11.0)
[2019-10-08] MEDS: Aspirin 81 MG TAB.CHEW 324 MG PO (17:49)
[2019-10-08 17:54] LABS: Anion Gap 5 (5-15); BUN 22 mg/dL (7-18); BUN/Creat Ratio 15.5 RATIO (10-20); Calcium,Total 8.6 mg/dL (8.5-10.1); Chloride 110 mmol/L (98-107); Creatinine, Serum 1.42 mg/dL (0.70-1.30); EST Glomerular Filtration Rate 53 mL/min (>60); Est Glom Filt Rate - Afr Amer 64 mL/min (>60); Estimated Creatinine Clearance 54.65 ml/min; Glucose 107 mg/dL (74-106); Potassium 3.8 mmol/L (3.5-5.1); Sodium Level 141 mmol/L (136-145)
[2019-10-08 18:03] LABS: International Normalized Ratio 2.2; Prothrombin Time (Protime)PT. 24.3 SECONDS (11.7-14.9)
--- NOTE | 2019-10-08 18:58 | HP.PCM_ITS ---
Problem List (1) Chest tightness Status: Acute (2) S/P AVR (aortic valve replacement) Status: Chronic (3) CKD (chronic kidney disease), stage III Status: Chronic (4) Chronic systolic CHF (congestive heart failure) Status: Chronic (5) History of DVT (deep vein thrombosis) Status: Chronic (6) Chronic obstructive pulmonary disease (COPD) Status: Chronic Qualifiers: COPD type: unspecified COPD Qualified Code(s): J44.9 - Chronic obstructive pulmonary disease, unspecified (7) CAD (coronary artery disease) Status: Chronic Qualifiers: Coronary Disease-Associated Artery/Lesion type: unspecified vessel or lesion type [place] vs. transplanted heart: unspecified whether [place] or transplanted heart Associated angina: angina presence unspecified Qualified Code(s): I25.10 - Atherosclerotic heart disease of [place] coronary artery without angina pectoris (8) PAF (paroxysmal atrial fibrillation) Status: Chronic (9) Former tobacco use Status: Chronic (10) HTN (hypertension) Status: Chronic Qualifiers: Hypertension type: essential hypertension Qualified Code(s): I10 - Essential (primary) hypertension (11) HLD (hyperlipidemia) Status: Chronic Qualifiers: Hyperlipidemia type: unspecified Qualified Code(s): E78.5 - Hyperlipidemia, unspecified History of Present Illness Date of Admission: 10/08/19 Chief Complaint: Chest pain The patient is a 69 y/o w/ PMHx: Chronic Systolic CHF s/p AICD, HTN, HLD, PAF s/p MAZE, Hx DVT, Severe s/p AVR, Carotid disease s/p R CEA, CAD s/p CABG, GERD, Chronic COPD, Former Tobacco use who notes history of recent HTN medic ations several weeks prior and since occasional lightheadedness, dizziness and blurry vision with onset, exacerbated by certain activities and positioning, noting he went into atrial fibrillation 3 days prior to current presentation and occasionally does so which has worsened his symptoms with then onset day, day of ED presentation midsternal chest tightness rated a 2-3 maximum out of 10 occurring approximately 2 hours prior to ED arrival, constant with no radiation with mild dyspnea associated with no nausea, emesis or diaphoresis prompting ED presentation. In the ED patient is now chest pain-free. Work-up in the ED included T 97.8, heart rate 104, BP 167/107, respiratory rate 18, 99% on room air, CBC with WC 7.8, hemoglobin 12.2, platelet 262 without market shift, INR 2.2, BMP with chloride 110, BUN/10 and 22/1.42, glucose 107, troponin less than 0.015, chest x-ray with evidence chronic pulmonary changes otherwise no acute cardiopulmonary findings, EKG with rate controlled atrial fibrillation with no evidence of acute ischemia. In the ED patient ministered aspirin 324 mg p.o. x1. Past Medical History Past Medical History (Chronic Problems): Chronic Problems (Last Updated 03/28/19 @ 10:34 by Joesph Robins CRT, REPATCHER, BS) CAD (coronary artery disease) (Chronic) PAF (paroxysmal atrial fibrillation) (Chronic) Bladder cancer (Chronic) Former tobacco use (Chronic) HTN (hypertension) (Chronic) HLD (hyperlipidemia) (Chronic) S/P AVR (aortic valve replacement) (Chronic) CKD (chronic kidney disease), stage III (Chronic) Chronic systolic CHF (congestive heart failure) (Chronic) History of DVT (deep vein thrombosis) (Chronic) Chronic obstructive pulmonary disease (COPD) (Chronic) Medical History: Medical History (Last Updated 03/28/19 @ 10:34 by Joesph Robins, CORDELL, REPATCHER, BS) MARCO ANTONIO (acute kidney injury) N17.9 Acute hypoxemic respiratory failure J96.01 Acute hypoxemic respiratory failure J96.01 Aspiration pneumonia due to inhalation of vomitus J69.0 Cardiac arrest Onset Date: 01/14/19 I46.9 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 Implantable cardioverter-defibrillator (ICD) in situ Z95.810 Paroxysmal atrial fibrillation I48.0 Personal history of DVT (deep vein thrombosis) Z86.718 Primary hypertension I10 Retroperitoneal hematoma K66.1 Severe aortic valve stenosis I35.0 Acute on chronic systolic CHF (congestive heart failure) I50.23 Allergies No Known Allergies Allergy (Verified 10/08/19 17:12) Home Medications: Ambulatory Orders Medication Instructions Recorded Albuterol Inhaler [Ventolin Hfa] 2 puff INHALATION Q4H PRN PRN 12/29/12 Omeprazole [Prilosec] 40 mg PO DAILY 12/29/12 Aspirin [Aspirin EC] 81 mg PO DAILY 03/28/19 Atorvastatin Calcium [Lipitor] 40 mg PO QHS 03/28/19 Carvedilol [Coreg] 12.5 mg PO BID 03/28/19 Fluticasone 0.05% [Flonase Nasal 2 spray NASAL DAILY 03/28/19 [place]] Lisinopril [Zestril] 20 mg PO DAILY 10/08/19 Nifedipine [Nifedipine ER] 30 mg PO DAILY 10/08/19 Nitroglycerin [Nitrostat] 0.3 mg SL PRN PRN 10/08/19 Warfarin [Coumadin ([facility])] 5 mg PO SUTUTHSA 10/08/19 Warfarin [Coumadin ([facility])] 7.5 mg PO MOWEFR 10/08/19 Surgical History: Surgical History (Last Updated 03/28/19 @ 10:33 by Joesph Robins, DISPATCHER CHIEF COAL SLURRY, REPATCHER, BS) History of right-sided carotid endarterectomy Z98.890 S/P CABG (coronary artery bypass graft) Onset Date: ~01/09/19 Z95.1 S/P Maze operation for atrial fibrillation Z98.890, Z86.79 S/P left atrial appendage ligation Z98.890 Status post Maze operation for atrial fibrillation Z98.890, Z86.79 Surgical History: adenoidectomy, appendectomy, tonsillectomy, - - CABG s/p AVR and MAZED, lumbar back surgery, neck surgery with hardware, AICD/pacemaker, right carotid endarterectomy, appendectomy, tonsillectomy, left ankle surgery x4, bilateral knee arthroscopic surgery, trigger finger surgery x2.. Psychiatric History: No pertinent psych hx Lives: Spouse/ Significant Other Smoking Status: Former smoker - Patient quit cigarette tobacco usage approximately 3 years prior to current presentation with prior to this 2 pack/day intermittently since his youth. Tobacco Use: Non-smoker Alcohol: Occasional Drugs: None - *Family History Maternal History Items: Cancer - Mother with history of non-Hodgkin's lymphoma., Heart Disease Paternal History Items: Cancer, Heart Disease, - - Father with a history concurrently of DVT and significant lower extremity vascular disease however patient knows this is related to exposures during the war. Review of Systems Constitutional: Reports: Fatigue. Denies: Anorexia, Chills, Fever, Malaise, Weakness, Weight Change HEENT: Reports: Visual Changes. Denies: Head Aches, Sinus Congestion, Sinus Drainage Cardiovascular: Reports: Chest Tightness, Light Headedness. Denies: Chest Pain, Chest Pressure, Orthopnea, Palpitations, Syncope Respiratory: Reports: Shortness of Breath. Denies: Cough, Shortness of breath at rest, Shortness of breath upon exertion, Sputum production Gastrointestinal: Denies: Abdominal Pain, Nausea, Vomiting Genitourinary: Denies: Dysuria Musculoskeletal: Denies: Joint Pain, Joint Tenderness Skin: Denies: Rash, Wounds Neurological: Reports: Blurred vision. Denies: Focal weakness, Numbness, Tingling Psychiatric: Denies: Anxiety, Depression, Homicidal Ideations, Suicidal Ideations Hematologic/ Lymphatic: Reports: Easy Bruising, Easy Bleeding VTE Information - Inpt Only VTE Present on Admission: No VTE Mechan Device Prophylaxis: SCD's VTE Pharm Prophylaxis ordered?: No Reason prophylaxis not ordered:: Treatment Not Indicated - Repeated on his Coumadin, will continue with INR trending. Patient Problems: Active and Suspected Problems (Last Updated 03/28/19 @ 10:34 by Joesph Robins, DISPATCHER CHIEF COAL SLURRY, REPATCHER, BS) Chest tightness (Acute) Subjective: Seated upright in the ED bed, no acute distress, no current chest tightness, no lightheadedness or dizziness. Objective: Physical Examination: General: awake, alert, oriented x 3 and cooperative, seated upright in the ED bed in no apparent distress, remains chest tightness free as well as no lightheadedness or dizziness. Skin: Extremely salazar color with admitted heavy sun exposure, turgor, no icterus, cyanosis. HEENT: AT/NC, EOMI, PERRLA, MMM, no carotid bruits or JVD noted. Lungs: CTA bilaterally, moderate effort, moderate decrease BL bases, no rales, ronchi or wheezing. Heart: Irregular, rate controlled; no gallop, rub audible, + SM. Abdomen: soft, NTTP, ND, normal BS, no HSM. Extremities: no cyanosis, clubbing, or edema. Neurological: patient awake, alert, oriented x 3; cognitive function intact; pupils equally reactive to light and accomodation; cranial nerves II-XII grossly normal, moving all 4 extremities, no focal deficits, strength mildly globally Janina secondary to acute presentation. Psychiatric: affect appears normal, no acute evidence of depressive or anxiety feelings. - Physical Exam Vitals/I&O's: Vital Signs Temp Pulse Resp BP Pulse Ox 97.8 F 104 H 18 167/107 H 99 10/08/19 17:05 10/08/19 17:05 10/08/19 17:05 10/08/19 17:05 10/08/19 17:05 Oxygen Delivery Method Room Air Weight: 251 lb 1.6 oz Body Mass Index (BMI) 34.0 Laboratory Results 10/08/19 17:15: WBC 7.8, RBC 4.52 L, Hgb 12.2 L, Hct 38.2 L, MCV 84.5, MCH 27.0, MCHC 31.9 L, RDW Std Deviation 42.9, RDW Coeff of Stew 13.8, Plt Count 262, MPV 11.4, Immature Gran % (Auto) 0.300, Neut % (Auto) 52.7, Lymph % (Auto) 33.3, Summers % (Auto) 10.1 H, Eos % (Auto) 3.1, Baso % (Auto) 0.5, Absolute Neuts (auto) 4.1, Absolute Lymphs (auto) 2.60, Nucleated RBC % 0 10/08/19 17:15: PT Cancelled, INR Cancelled 10/08/19 17:15: Sodium 141, Potassium 3.8, Chloride 110 H, Carbon Dioxide 26.0, Anion Gap 5, BUN 22 H, Creatinine 1.42 H, Estim Creat Clear Calc 54.65, Est GFR (MDRD) Af Amer 64, Est GFR (MDRD) Non-Af 53 L, BUN/Creatinine Ratio 15.5, Glucose 107 H, Calcium 8.6, Troponin I < 0.015 10/08/19 17:45: PT 24.3 H, INR 2.2 Assessment/Plan All Active Problems (Last Updated 03/28/19 @ 10:34 by Joesph Robins, DISPATCHER CHIEF COAL SLURRY, REPATCHER, BS) MARCO ANTONIO (acute kidney injury) (Acute) Chest tightness (Acute) The patient is a 69 y/o w/ PMHx: CKD stage III, Chronic Systolic CHF s/p AICD, HTN, HLD, PAF s/p MAZE, Hx DVT, Severe s/p AVR, Carotid disease s/p R CEA, CAD s/p CABG, GERD, Chronic COPD, Former Tobacco use who notes history of recent HTN medications several weeks prior and since occasional lightheadedness, dizziness and blurry vision with onset, exacerbated by certain activities and positioning, noting he went into atrial fibrillation 3 days prior to current presentation and occasionally does so which has worsened his symptoms with then onset day, day of ED presentation midsternal chest tightness. 1. Chest Tightness with recent LH, Dizziness: Possibly secondary to recent medication changes and also PAF episode. EKG in ED rate controlled atrial fibrillation with no acute evidence of ischemia, CXR w/ chronic COPD changes with no acute cardiopulmonary findings, initial trop normal x 1. Will admit to PCU, place on a monitored bed to assure no acute myocardial infarction with serial cardiac enzymes and EKGs, will obtain orthostatic vital signs with BP medication alteration, maintain on fall precautions. If repeat EKG, serial enzymes remain appropriate will obtain AM stress testing. FLP in AM. Mag requested. If work-up unremarkable may need to also pursue CT head. ASA, NG, morphine. 2. PAF: s/p prior MAZE, continue coumadin with INR trending, continue home coreg, currently rate controlled, noted in atrial fibrillation x 3 days. 3. Severe : s/p AVR, no ECHO in [employer] system, CC records requested. 4. Chronic Systolic CHF: s/p AICD placement, continue home coumadin w/ INR trending, asa, statin, coreg, lisinopril, not on diuretic. 5. Hypertension: Continue home regimen including Coreg, lisinopril, nifedipine, PRN hydralazine. 6. Hyperlipidemia: Continue home statin regimen, FLP in AM. 7. Hx DVT: Continue coumadin w/ INR trending, therapeutic upon presentation. 8. Carotid disease: s/p R CEA, continue asa, coumadin, statin, HTN regimen. 9. Chronic COPD: PRN albuterol, HOB, IS parameters. 10. Former Tobacco use: Courage continued tobacco cessation. 11. GERD: Continue home omeprazole. 12. Chronic Kidney Disease Stage III: Admission BUN/Cr 22/1.42, baseline renal function last noted 1.51 on 01/14/2019 but most records at , repeat BMP in AM. 13. DVT prophylaxis: SCDs, coumadin with INR trending. 14. CODE status: Patient HCPOA is his son time and living will is not in place, encouraged this item also be performed. Discussed CODE status at length including difference between FULL code, DNR-CCA and DNR-CC status. Following discussions about the differences in these status, requested full CODE STATUS. Advanced Care Planning Face to Face Time: 16 minutes. OBSV E&M: 42326 Initial observation care L3 Procedures: [id number] Advncd Care Plan 30 Min
--- NOTE | 2019-10-08 19:00 | ED.DCSUM_ITS ---
- ER Visit Summary Date of Service: 10/08/19 Chief Complaint: Atrial fibrillation and chest tightness History of Present Illness: The patient is a 69 M with a history of atrial fibrillation. He is not normally in atrial fibrillation but has noticed it for the last 3 days. He had some chest tightness today and dizziness with exertion. He has a history of coronary disease, bypass, right carotid endarterectomy. He takes Coumadin. Former smoker. Physical Examination: Afebrile and vital signs unremarkable except blood pressure 167/107. Heart rate is 104. Heart is irregular. Lungs are clear. Skin is normal in color. Calves are soft and supple. Test Results: EKG shows atrial fibrillation at a rate of 104 with a left bundle branch block pattern. Hemoglobin 12.2. BUN 22, creatinine 1.42. INR 2.2. Troponin normal. Chest x-ray shows chronic changes. Emergency Department Course and Treatment: Patient treated with aspirin and placed on the monitor. His heart rate improved to the 80s and 90s without inte rvention, but he remained in atrial fibrillation. He was not having symptoms or any thing to suggest instability. His EKG, chest x-ray, labs as above. INR therapeutic at 2.2. Patient had a stress test over a year ago. He normally follows with a piece dye worker and an EP in [place]. He was amenable to admission here for evaluation. Treatment Plan: As above Disposition: PCU observation Impression: A. fib, chest pain, hypertension, hyperlipidemia, coronary disease This note was generated with [employer] dictation software. It may contain incorrect words, spelling, and punctuation that were not noted in review of the chart prior to signing ED Disposition - Plan for ED Patient: Referrals: Braulio Stafford MD [Primary Care Provider] -
[2019-10-08 19:25] VITALS: BP 171/107; BP 181/120; PULSE 80; PULSE 91; RESP 18; RESP 20; TEMP 36.5; O2SAT 96
--- NOTE | 2019-10-08 19:41 | EKG12_ITS ---
Test Reason : Blood Pressure : / mmHG Vent. Rate : 089 BPM Atrial Rate : 075 BPM P-R Int : 000 ms QRS Dur : 174 ms QT Int : 420 ms P-R-T Axes : 000 -09 154 degrees QTc Int : 511 ms Atrial fibrillation Left bundle branch block Abnormal ECG When compared with ECG of 14-JAN-2019 00:58, Nonspecific T wave abnormality no longer evident in Anterior leads QT has shortened Confirmed by AGUSTINA DOUGHERTY ([id number]), senior technical editor TEVIN CALDERON ([id number]) on 10/16/2019 10:02:27 AM Referred By: Confirmed By:AGUSTINA DOUGHERTY
[2019-10-08 19:42] VITALS: BMI 33.7
[2019-10-08 19:52] VITALS: PULSE 84
[2019-10-08 20:05] VITALS: BP 144/82; BP 148/87; BP 154/95; PULSE 86; PULSE 87; PULSE 88; PULSE 91; RESP 18; TEMP 36.4; O2SAT 98
[2019-10-08 20:05] LABS: Magnesium 1.8 mg/dL (1.6-2.6)
[2019-10-08] MEDS: Carvedilol 12.5 MG Tablet PO (21:31)
[2019-10-08] MEDS: Atorvastatin Calcium 40 MG Tablet PO (21:32)
[2019-10-08 22:00] VITALS: PULSE 88; RESP 16
[2019-10-08 23:00] VITALS: PULSE 99
[2019-10-09 02:00] VITALS: BP 132/75; PULSE 84; RESP 16; TEMP 36.7; O2SAT 96
[2019-10-09 03:00] VITALS: PULSE 88
--- NOTE | 2019-10-09 05:55 | EKG12_ITS ---
Test Reason : Blood Pressure : / mmHG Vent. Rate : 083 BPM Atrial Rate : 096 BPM P-R Int : 000 ms QRS Dur : 172 ms QT Int : 424 ms P-R-T Axes : 000 026 188 degrees QTc Int : 498 ms Atrial fibrillation Left bundle branch block Abnormal ECG When compared with ECG of 08-OCT-2019 19:59, MANUAL COMPARISON REQUIRED, DATA IS UNCONFIRMED Confirmed by AGUSTINA DOUGHERTY ([id number]), electronic news gathering editor TEVIN CALDERON ([id number]) on 10/16/2019 10:03:25 AM Referred By: Confirmed By:AGUSTINA DOUGHERTY
[2019-10-09 06:13] LABS: Absolute Lymphocyte Count 1.93 X10^3/uL (0.83-4.51); Absolute Neutrophil Count 3.8 X10^3/uL (2.0-7.7); Basophil# 0.05 X10^3/uL; Basophil% 0.7 % (0-1); Eosinophil# 0.27 X10^3/uL; Hematocrit 40.2 % (40-54); Hemoglobin 12.4 g/dL (13.0-16.5); Lymphocyte # 1.93 X10^3/ul (4.0); Lymphocyte % 28.7 % (19-41); Mean Corp Hgb Conc 30.8 g/dL (32-36); Mean Corpuscular Hgb 26.1 pg (27.0-32.0); Mean Corpuscular Volume 84.5 fL (80-94); Mean Platelet Vol. 11.3 fl (6.2-12.0); Monocyte# 0.63 X10^3/uL; Monocyte% 9.4 % (0-10); NRBC Flagged by Analyzer 0 % (0-5); Neutrophil # 3.83 X10^3/uL (2.7-7.7); Neutrophil % 57.1 % (47-70); Platelet Count 231 K/mm3 (150-450); RBC Distribution Width CV 13.7 % (11.6-14.6); RBC Distribution Width SD 42.3 fl (35.1-43.9); Red Blood Count 4.76 M/mm3 (4.6-6.2); White Blood Count 6.7 K/mm3 (4.4-11.0)
[2019-10-09 06:25] LABS: International Normalized Ratio 2.3; Prothrombin Time (Protime)PT. 24.9 SECONDS (11.7-14.9)
[2019-10-09 06:50] VITALS: PULSE 81
[2019-10-09 06:55] LABS: ALB/GLOB Ratio 0.9 RATIO (0.9-2.4); AST(SGOT) 13 U/L (15-37); Alanine Aminotransfer ALT/SGPT 23 U/L (16-61); Albumin, Serum 3.4 g/dL (3.2-5.0); Alkaline Phosphatase 74 U/L (45-117); Anion Gap 6 (5-15); BUN 20 mg/dL (7-18); BUN/Creat Ratio 16.9 RATIO (10-20); Calcium,Total 8.5 mg/dL (8.5-10.1); Chloride 108 mmol/L (98-107); Cholesterol 148 mg/dL (200); Creatinine, Serum 1.18 mg/dL (0.70-1.30); EST Glomerular Filtration Rate 65 mL/min (>60); Est Glom Filt Rate - Afr Amer 79 mL/min (>60); Estimated Creatinine Clearance 65.76 ml/min; Globulin 3.7 g/dL (2.2-4.2); Glucose 101 mg/dL (74-106); High Density Lipoprotein 30 mg/dL; Potassium 3.7 mmol/L (3.5-5.1); Protein, Total 7.1 g/dL (6.4-8.2); Sodium Level 140 mmol/L (136-145); Thyroid Stim Hormone (TSH) 1.76 uIU/mL (0.358-3.74); Triglycerides 157 mg/dL; Very Low Density Lipoprotein 31 mg/dL (5-40)
[2019-10-09 08:15] VITALS: O2SAT 97
[2019-10-09 08:22] VITALS: BP 152/84; PULSE 78; RESP 16; TEMP 36.4; O2SAT 97
[2019-10-09] MEDS: Aspirin E.C. 81 MG Tablet PO (08:27)
--- NOTE | 2019-10-09 11:13 | STRESSREP ---
Stress Test Report Pharmacologic myocardial perfusion stress test. 69-year-old man with a history of coronary artery disease status post coronary artery bypass surgery, status post ICD, hypertension, status post aortic valve replacement. Stress protocol: Resting EKG demonstrates atrial fibrillation with a rate of 79 bpm occasional ventricular paced beats and a left bundle branch block. 0.4 mg of regadenoson was infused per usual protocol followed by Intravenous saline flush injection continuous conveyor monitor was performed. The maximum heart rate attained was 99 bpm which was 65% of maximum predicted heart rate the maximum workload was 1 metabolic equivalent. Resting blood pressure was 150/92 with a final blood pressure 124/72 mmHg. Myocardial perfusion protocol. 0.4 mg of regadenoson was infused per usual protocol followed by rapid intravenous saline flush injection continuous EKG monitoring was performed. At rest left bundle branch block pattern abnormalities were noted at peak infusion the same pattern was noted. Perfusion SPECT analysis: Review of the images demonstrate normal uptake of tracer noted in all areas of the myocardium the resting images similarly demonstrate normal uptake of tracer noted in all areas of the myocardium. No reversibility is noted suggest ischemia no previous infarct is noted. Gated SPECT analysis: The gated ejection fraction is 41%. Conclusion: Atrial fibrillation noted. No ischemia present. Mild cardiomyopathy present.
--- NOTE | 2019-10-09 11:26 | PCM.DC ---
- Discharge Diagnoses Current Active Problems: Current Active and Chronic Problems (Last Updated 03/28/19 @ 10:34 by Joesph Robins, COMPRESSOR TECHNICIAN, SPEECH LANGUAGE PATHOLOGIST ASSISTANT, BS) Chest tightness (Acute) S/P AVR (aortic valve replacement) (Chronic) CKD (chronic kidney disease), stage III (Chronic) Chronic systolic CHF (congestive heart failure) (Chronic) History of DVT (deep vein thrombosis) (Chronic) Chronic obstructive pulmonary disease (COPD) (Chronic) You will use the following diet at home:: Cardiac Discharge Activity: Return to Normal Activity Call your doctor if you observe: Shortness of breath, Dizziness, Fainting spells, Chest pain Allergies/Adverse Reactions: Allergies No Known Allergies Allergy (Verified 10/08/19 17:12) Medications to take at Discharge Albuterol Inhaler [Ventolin Hfa] 2 puff INHALATION Q4H PRN PRN 12/29/12 Omeprazole [Prilosec] 40 mg PO DAILY 12/29/12 Aspirin [Aspirin EC] 81 mg PO DAILY 03/28/19 Atorvastatin Calcium [Lipitor] 40 mg PO QHS 03/28/19 Carvedilol [Coreg ([facility])] 12.5 mg PO BID 03/28/19 Fluticasone 0.05% [Flonase Nasal [place]] 2 spray NASAL DAILY 03/28/19 Lisinopril [Zestril] 20 mg PO DAILY 10/08/19 Nifedipine [Nifedipine ER] 30 mg PO DAILY 10/08/19 Nitroglycerin [Nitrostat] 0.3 mg SL PRN PRN 10/08/19 Warfarin [Coumadin] 5 mg PO SUTUTHSA 10/08/19 Warfarin [Coumadin] 7.5 mg PO MOWEFR 10/08/19 Primary Care Physician: Braulio Stafford MD [Primary Care Provider] - Please follow up with your Primary Care Physician in: 1 Week Test Results: Test results from this visit will be discussed in further detail at your follow-up appointment, if applicable. Please Follow Up With: Primary Teacher When: 1 Week Proposed Discharge Date: 10/09/19
--- NOTE | 2019-10-09 11:59 | DS.PCM_ITS ---
<Laura Cota - Last Filed: 10/09/19 12:06> Discharge Date and Diagnosis Date of Admission: 10/08/19 Date of Discharge: 10/09/19 - Primary Discharge Diagnosis Acute Problems: 1. Chest pain, ACS ruled out 2. Paroxysmal atrial fibrillation 3. Severe aortic stenosis 4. Chronic systolic CHF status post AICD placement 5. Hypertension 6. Hyperlipidemia 7. History of DVT 8. Carotid artery disease 9. Chronic COPD 10. Former tobacco use 11. GERD 12. Chronic kidney disease stage III - Secondary Discharge Diagnosis Chronic Problems: Chronic Problems (Last Updated 03/28/19 @ 10:34 by Joesph Robins, NIGHT GUARD, LINUX SERVER ADMINISTRATOR, BS) CAD (coronary artery disease) (Chronic) PAF (paroxysmal atrial fibrillation) (Chronic) Bladder cancer (Chronic) Former tobacco use (Chronic) HTN (hypertension) (Chronic) HLD (hyperlipidemia) (Chronic) S/P AVR (aortic valve replacement) (Chronic) CKD (chronic kidney disease), stage III (Chronic) Chronic systolic CHF (congestive heart failure) (Chronic) History of DVT (deep vein thrombosis) (Chronic) Chronic obstructive pulmonary disease (COPD) (Chronic) Hospital Course and Treatment Imaging Results: Diagnostic Data Chest X-Ray 10/08/19 17:40 IMPRESSION: 1. No airspace consolidation or pleural effusion. 2. Hyperinflation suggesting chronic obstructive airway disease. Electronically Signed: Jason Shine MD ([place]) at 17:53 EDT , Service support , Operations: None Procedures: Stress test Summary of Care Provided: The patient is a 69 year old M admitted 10/08/2019 due to chest pain. 1. Chest pain, ACS ruled out-troponin negative. EKG without ST-T changes. In atrial fibrillation, rate controlled. INR therapeutic. Patient underwent stress test which showed no ischemia. Mild cardiomyopathy, gated ejection fraction 41%. Patient follows with several occupational therapy specialist through [facility] Main campus, follow-up with cardiology in 1 week. 2. Paroxysmal atrial fibrillation-rate controlled during admission. INR therapeutic. Continue Coumadin, carvedilol. History of maze. 3. Severe aortic stenosis-status post AVR. 4. Chronic systolic CHF status post AICD placement-continue aspirin, statin, Coreg, lisinopril. 5. Hypertension-stable, continue Coreg, lisinopril, nifedipine. 6. Hyperlipidemia-continue statin. 7. History of DVT-on Coumadin, INR therapeutic. 8. Carotid artery disease-history of right carotid endarterectomy. Continue aspirin, Coumadin, statin. 9. Chronic COPD-no exacerbation. 10. Former tobacco use-encouraged continued cessation. 11. GERD-continue omeprazole. 12. Chronic kidney disease stage III-at baseline, trend BMP. Mildly dehydrated on admission, no acute kidney injury. Patient seen and examined prior to discharge. Physical assessment as noted below. Patient is stable for discharge with follow up recommendations as noted above. This patient was seen by DREW Jimenez under the supervision of Dr. Pal. - Physical Exam Vitals/I&O's: Vital Signs Temp Pulse Resp BP Pulse Ox 97.5 F L 78 16 152/84 H 97 10/09/19 08:22 10/09/19 08:22 10/09/19 08:22 10/09/19 08:22 10/09/19 08:22 Oxygen Delivery Method Room Air Weight: 248 lb 10.903 oz Body Mass Index (BMI) 33.7 Orthostatic Vital Signs Start: 10/08/19 22:34 Freq: q24h Status: Active Protocol: Activity Type Activity Date Activity User E-Sign Co-Sign Detail Recorded Client Recorded Date Recorded By Document 10/08/19 20:05 [id number] 10/08/19 22:42 CS 10/08/19 20:05 Orthostatic Vitals Standing -Blood Pressure (90/60-120/80) 144/82 H -Extremity Use Right Arm -Pulse Rate (60-100) 91 Sitting -Blood Pressure (90/60-120/80) 148/87 H -Extremity Use Right Arm -Pulse Rate (60-100) 87 Lying -Blood Pressure (90/60-120/80) 154/95 H -Extremity Use Right Arm -Pulse Rate (60-100) 88 Intake and Output for Last 24 Hours 10/07/19 10/08/19 10/09/19 23:59 23:59 23:59 Intake Total 400 / 400 Balance 400 / 400 General: Alert, Oriented x3, Cooperative HEENT: Atraumatic, PERRLA, EOMI, Normocephalic Neck: Supple, No JVD, Negative Carotid Bruits Lungs: Clear to auscultation, Diminished Cardiovascular: - - A.fib, rate controlled. Abdomen: Bowel Sounds Present, Soft, Non Tender, Non-Distended Extremities: No clubbing, No cyanosis, No edema, Capillary Refill Less than 3 Seconds Skin: No rashes, No breakdown Musculoskeletal: No Tenderness to Palpation of Joints or Extremities Neurological: Cranial nerves II-XII grossly intact, Neuro grossly intact Psych/Mental Status: Normal Affect, Appropriate Laboratory Results 10/08/19 17:15: WBC 7.8, RBC 4.52 L, Hgb 12.2 L, Hct 38.2 L, MCV 84.5, MCH 27.0, MCHC 31.9 L, RDW Std Deviation 42.9, RDW Coeff of Stew 13.8, Plt Count 262, MPV 11.4, Immature Gran % (Auto) 0.300, Neut % (Auto) 52.7, Lymph % (Auto) 33.3, [place] % (Auto) 10.1 H, Eos % (Auto) 3.1, Baso % (Auto) 0.5, Absolute Neuts (auto) 4.1, Absolute Lymphs (auto) 2.60, Nucleated RBC % 0 10/08/19 17:15: PT Cancelled, INR Cancelled 10/08/19 17:15: Sodium 141, Potassium 3.8, Chloride 110 H, Carbon Dioxide 26.0, Anion Gap 5, BUN 22 H, Creatinine 1.42 H, Estim Creat Clear Calc 54.65, Est GFR (MDRD) Af Amer 64, Est GFR (MDRD) Non-Af 53 L, BUN/Creatinine Ratio 15.5, Glucose 107 H, Calcium 8.6, Troponin I < 0.015 10/08/19 17:45: PT 24.3 H, INR 2.2 10/08/19 17:50: Magnesium 1.8 10/08/19 20:23: Troponin I < 0.015 10/08/19 22:42: Troponin I 0.020 10/09/19 05:40: WBC 6.7, RBC 4.76, Hgb 12.4 L, Hct 40.2, MCV 84.5, MCH 26.1 L, MCHC 30.8 L, RDW Std Deviation 42.3, RDW Coeff of Stew 13.7, Plt Count 231, MPV 11.3, Immature Gran % (Auto) 0.100, Neut % (Auto) 57.1, Lymph % (Auto) 28.7, [place] % (Auto) 9.4, Eos % (Auto) 4.0, Baso % (Auto) 0.7, Absolute Neuts (auto) 3.8, Absolute Lymphs (auto) 1.93, Nucleated RBC % 0 10/09/19 05:40: PT 24.9 H, INR 2.3 10/09/19 05:40: Sodium 140, Potassium 3.7, Chloride 108 H, Carbon Dioxide 26.0, Anion Gap 6, BUN 20 H, Creatinine 1.18, Estim Creat Clear Calc 65.76, Est GFR (MDRD) Af Amer 79, Est GFR (MDRD) Non-Af 65, BUN/Creatinine Ratio 16.9, Glucose 101, Calcium 8.5, Total Bilirubin 0.40, AST 13 L, ALT 23, Alkaline Phosphatase 74, Total Protein 7.1, Albumin 3.4, Globulin 3.7, Albumin/Globulin Ratio 0.9, Triglycerides 157, Cholesterol 148, LDL Cholesterol 87, VLDL Cholesterol 31, HDL Cholesterol 30 L, TSH 1.76 Discharge Diet: Low fat/ Low Cholesterol Discharge Activity: Return to Normal Activity Call your doctor if you observe: Shortness of breath, Dizziness, Fainting spells, Chest pain Home Medications: Medications to take at Discharge Albuterol Inhaler [Ventolin Hfa] 2 puff INHALATION Q4H PRN PRN 12/29/12 Omeprazole [Prilosec] 40 mg PO DAILY 12/29/12 Aspirin [Aspirin EC] 81 mg PO DAILY 03/28/19 Atorvastatin Calcium [Lipitor] 40 mg PO QHS 03/28/19 Carvedilol [Coreg (Beta Christen)] 12.5 mg PO BID 03/28/19 Fluticasone 0.05% [Flonase Nasal [place]] 2 spray NASAL DAILY 03/28/19 Lisinopril [Zestril] 20 mg PO DAILY 10/08/19 Nifedipine [Nifedipine ER] 30 mg PO DAILY 10/08/19 Nitroglycerin [Nitrostat] 0.3 mg SL PRN PRN 10/08/19 Warfarin [Coumadin] 5 mg PO SUTUTHSA 10/08/19 Warfarin [Coumadin] 7.5 mg PO MOWEFR 10/08/19 Primary Care Physician: Braulio Stafford MD [Primary Care Provider] - Please follow up with your Primary Care Physician in: 1 Week Please Follow Up With: Primary [employer] When: 1 Week Disposition: Home Minutes spent on discharge:: 35 Patient Condition:: Stable Medical Necessity - Tobacco Use Smoking Status: Former smoker Tobacco Use: Non-smoker Meaningful Use Info Meaningful Use Diagnoses (Choose all that apply): None applicable <Jeffery Pal - Last Filed: 10/09/19 13:21> Discharge Date and Diagnosis - Secondary Discharge Diagnosis Chronic Problems: Chronic Problems (Last Updated 03/28/19 @ 10:34 by Joepsh Robins, NIGHT GUARD, LINUX SERVER ADMINISTRATOR, BS) CAD (coronary artery disease) (Chronic) PAF (paroxysmal atrial fibrillation) (Chronic) Bladder cancer (Chronic) Former tobacco use (Chronic) HTN (hypertension) (Chronic) HLD (hyperlipidemia) (Chronic) S/P AVR (aortic valve replacement) (Chronic) CKD (chronic kidney disease), stage III (Chronic) Chronic systolic CHF (congestive heart failure) (Chronic) History of DVT (deep vein thrombosis) (Chronic) Chronic obstructive pulmonary disease (COPD) (Chronic) Hospital Course and Treatment Imaging Results: 10/09/19 05:55 Nuclear Stress Test - Chemical [NM] AM (NON MEDS) Operations: None Procedures: Stress test Summary of Care Provided: Patient seen and examined independently. Data reviewed. I agree with the above note by the nurse practitioner. The patient is a 69 year old M presents with chest pain. Patient was having palpitations and was found to be in atrial fibrillation. Patient had A. fib INR was therapeutic. Patient to follow-up with [facility] cardio logy. [] - Physical Exam Vitals/I&O's: Vital Signs Temp Pulse Resp BP Pulse Ox 36.4 C L 78 16 152/84 H 97 10/09/19 08:22 10/09/19 08:22 10/09/19 08:22 10/09/19 08:22 10/09/19 08:22 Oxygen Delivery Method Room Air Weight: 112.8 kg Body Mass Index (BMI) 33.7 Orthostatic Vital Signs Start: 10/08/19 22:34 Freq: q24h Status: Active Protocol: Activity Type Activity Date Activity User E-Sign Co-Sign Detail Recorded Client Recorded Date Recorded By Document 10/08/19 20:05 [id number] 10/08/19 22:42 CS 10/08/19 20:05 Orthostatic Vitals Standing -Blood Pressure (90/60-120/80) 144/82 H -Extremity Use Right Arm -Pulse Rate (60-100) 91 Sitting -Blood Pressure (90/60-120/80) 148/87 H -Extremity Use Right Arm -Pulse Rate (60-100) 87 Lying -Blood Pressure (90/60-120/80) 154/95 H -Extremity Use Right Arm -Pulse Rate (60-100) 88 Intake and Output for Last 24 Hours 10/07/19 10/08/19 10/09/19 23:59 23:59 23:59 Intake Total 400 / 400 Balance 400 / 400 General: Alert, Cooperative HEENT: Atraumatic, Normocephalic Lungs: Clear to auscultation, Normal air movement, No rhonchi, No wheeze Cardiovascular: - Abdomen: Bowel Sounds Present, Soft, Non Tender, Non-Distended Laboratory Results 10/08/19 17:15: WBC 7.8, RBC 4.52 L, Hgb 12.2 L, Hct 38.2 L, MCV 84.5, MCH 27.0, MCHC 31.9 L, RDW Std Deviation 42.9, RDW Coeff of Stew 13.8, Plt Count 262, MPV 11.4, Immature Gran % (Auto) 0.300, Neut % (Auto) 52.7, Lymph % (Auto) 33.3, [place] % (Auto) 10.1 H, Eos % (Auto) 3.1, Baso % (Auto) 0.5, Absolute Neuts (auto) 4.1, Absolute Lymphs (auto) 2.60, Nucleated RBC % 0 10/08/19 17:15: PT Cancelled, INR Cancelled 10/08/19 17:15: Sodium 141, Potassium 3.8, Chloride 110 H, Carbon Dioxide 26.0, Anion Gap 5, BUN 22 H, Creatinine 1.42 H, Estim Creat Clear Calc 54.65, Est GFR (MDRD) Af Amer 64, Est GFR (MDRD) Non-Af 53 L, BUN/Creatinine Ratio 15.5, Glucose 107 H, Calcium 8.6, Troponin I < 0.015 10/08/19 17:45: PT 24.3 H, INR 2.2 10/08/19 17:50: Magnesium 1.8 10/08/19 20:23: Troponin I < 0.015 10/08/19 22:42: Troponin I 0.020 10/09/19 05:40: WBC 6.7, RBC 4.76, Hgb 12.4 L, Hct 40.2, MCV 84.5, MCH 26.1 L, MCHC 30.8 L, RDW Std Deviation 42.3, RDW Coeff of Stew 13.7, Plt Count 231, MPV 11.3, Immature Gran % (Auto) 0.100, Neut % (Auto) 57.1, Lymph % (Auto) 28.7, [place] % (Auto) 9.4, Eos % (Auto) 4.0, Baso % (Auto) 0.7, Absolute Neuts (auto) 3.8, Absolute Lymphs (auto) 1.93, Nucleated RBC % 0 10/09/19 05:40: PT 24.9 H, INR 2.3 10/09/19 05:40: Sodium 140, Potassium 3.7, Chloride 108 H, Carbon Dioxide 26.0, Anion Gap 6, BUN 20 H, Creatinine 1.18, Estim Creat Clear Calc 65.76, Est GFR (MDRD) Af Amer 79, Est GFR (MDRD) Non-Af 65, BUN/Creatinine Ratio 16.9, Glucose 101, Calcium 8.5, Total Bilirubin 0.40, AST 13 L, ALT 23, Alkaline Phosphatase 74, Total Protein 7.1, Albumin 3.4, Globulin 3.7, Albumin/Globulin Ratio 0.9, Triglycerides 157, Cholesterol 148, LDL Cholesterol 87, VLDL Cholesterol 31, HDL Cholesterol 30 L, TSH 1.76 Discharge Diet: Low fat/ Low Cholesterol Discharge Activity: Return to Normal Activity Call your doctor if you observe: Shortness of breath, Dizziness, Fainting spells, Chest pain Disposition: Home Minutes spent on discharge:: 35 Patient Condition:: Stable Medical Necessity - Tobacco Use Smoking Status: Former smoker Tobacco Use: Non-smoker Meaningful Use Info Meaningful Use Diagnoses (Choose all that apply): None applicable OBSV E&M: 93229 Observation care discharge
== END 2019-10-09 11:27 | disposition home or self-care (01) ==
LOC: ED 19:04 → PCU 20:00
PROVIDERS: Admitting Provider Family Medicine; Emergency Provider Emergency Medicine; PCP Internal Medicine
DX: R07.89 Other chest pain (principal); E86.0 Dehydration; N18.3 Chronic kidney disease, stage 3 (moderate); I13.0 Hypertensive heart and chronic kidney disease with heart failure and stage 1 through stage 4 chronic kidney disease, or unspecified chronic kidney disease; I50.22 Chronic systolic (congestive) heart failure; I25.10 Atherosclerotic heart disease of native coronary artery without angina pectoris; I48.0 Paroxysmal atrial fibrillation; E78.5 Hyperlipidemia, unspecified; K21.9 Gastro-esophageal reflux disease without esophagitis; J44.9 Chronic obstructive pulmonary disease, unspecified; Z79.899 Other long term (current) drug therapy; Z86.718 Personal history of other venous thrombosis and embolism; Z87.891 Personal history of nicotine dependence; Z95.810 Presence of automatic (implantable) cardiac defibrillator; Z79.01 Long term (current) use of anticoagulants; Z79.82 Long term (current) use of aspirin; Z95.2 Presence of prosthetic heart valve; Z95.1 Presence of aortocoronary bypass graft
CPT/HCPCS: 36415; 71045; 78452; 80048; 80053; 80061; 83735; 84443; 84484; 85025; 85610; 93005; 93017; 99218; 99285; A9500; A4216; G0378; J2785

== ENCOUNTER → 2019-10-31 17:17 | Outpatient (CLI) | payer MEDICARE, OTHER, SELFPAY ==
[2019-05-01 07:27] VITALS: BMI 33.3
[2019-10-08 19:42] VITALS: BMI 33.7
== END ==
PROVIDERS: PCP Internal Medicine; Referring Provider Internal Medicine; Visit Provider Internal Medicine
DX: R68.89 Other general symptoms and signs (principal); M79.10 Myalgia, unspecified site
CPT/HCPCS: 87635; C9803; U0003

== ENCOUNTER 2020-07-27 20:54 | Emergency (ER) | payer MEDICARE, OTHER, SELFPAY ==
[2019-05-01 07:27] VITALS: BMI 33.3
[2019-10-08 19:42] VITALS: BMI 33.7
[2020-07-27 20:55] VITALS: BP 203/86; PULSE 65; RESP 18; TEMP 37.1; O2SAT 97; BMI 33.0
--- NOTE | 2020-07-27 21:06 | CT_ITS ---
INDICATION: right flank/groin pain EXAMINATION: CT Abdomen And Pelvis W/O Contrast Injection TECHNIQUE: Helically acquired images were obtained of the abdomen and pelvis without the use of IV contrast. A radiation dose optimization technique was used for this scan. Oral contrast: None. COMPARISON: 05/26/2017 FINDINGS: Evaluation of the solid organs and vascular structures is limited without intravenous contrast. Visualized lung bases: Mild interlobular septal thickening in the right lower lung. Liver: Diffusely hypodense consistent with fatty liver. Gallbladder: Unremarkable Spleen: Unremarkable Pancreas: Unremarkable Adrenal Glands: Unremarkable Kidneys: Unremarkable Vasculature: Severe aortoiliac atherosclerotic disease. 3.8 cm fusiform infrarenal abdominal aortic aneurysm with a length of 7.4 cm. GI Tract: Scattered diverticula throughout the colon without evidence of inflammation. Lymphadenopathy: None Peritoneum: No ascites. Bladder: Unremarkable Reproductive organs: Unremarkable Bones/Soft tissues: There are diffuse degenerative changes of the spine. CT/Abdomen/Pelvis without Cont IMPRESSION: No acute abnormalities in the abdomen or pelvis. 3.8 cm fusiform infrarenal abdominal aortic aneurysm with a length of 7.4 cm. Mild interlobular septal thickening in the right lower lung indicative of mild interstitial edema. Fatty liver. Diverticulosis. Electronically Signed: Gama Mcnally MD at 22:30 EDT Tel , Service support ,
--- NOTE | 2020-07-27 21:07 | EDS_ITS ---
HPI HPI - GI History of Present Illness Chief Complaint: Abd Pain Informant: patient Abdominal Pain/Flank Pain Onset: Today and Hours Context: Sudden Onset Timing: Continuous Quality: Aching Current Severity: Mild Maximum Severity: Moderate Nausea/Vomiting/Emesis GI Symptom: Positive for Nausea and Vomiting Onset: Today Quality: Positive for Nonbilious Diarrhea/Melena/Hematochezia GI Symptom: Negative for Diarrhea Associated Symptoms Associated Symptoms: Negative for Dysuria and Frequency Narrative Narrative: 69-year-old male extensive past cardiac history including pacemaker defibrillator, bovine valve and on Coumadin. Patient states he went golfing they felt fine. Around 3 PM he started having right aching groin pain that now radiates to his right flank. Worse with movement. He did have an episode of nausea and vomiting. He denies any fever or chills. He denies any hematuria or dysuria. He is never had any history of kidney stones. He denies any trauma. Prior similar symptoms: No Recent Illness/Hospitalization: No PFSH PFSH Medical History Acute hypoxemic respiratory failure Acute hypoxemic respiratory failure Acute on chronic systolic CHF (congestive heart failure) MARCO ANTONIO (acute kidney injury) Aspiration pneumonia due to inhalation of vomitus Cardiac arrest (01/14/19) Implantable cardioverter-defibrillator (ICD) in situ IVC thrombosis Paroxysmal atrial fibrillation Personal history of DVT (deep vein thrombosis) Primary hypertension Retroperitoneal hematoma Severe aortic valve stenosis Home Medications albuterol sulfate [Ventolin HFA] 2 puff INHALATION Q4H PRN PRN 12/29/12 [History Last Taken Unknown] omeprazole 40 mg PO DAILY 12/29/12 [History Last Taken 12/28/12] aspirin 81 mg PO DAILY 03/28/19 [History Last Taken Unknown] atorvastatin 40 mg PO QHS 03/28/19 [History Last Taken Unknown] carvedilol 12.5 mg PO BID 03/28/19 [History Last Taken Unknown] fluticasone propionate 2 spray NASAL DAILY 03/28/19 [History Last Taken Unknown] lisinopril 20 mg PO DAILY 10/08/19 [History Last Taken Unknown] nifedipine 30 mg PO DAILY 10/08/19 [History Last Taken Unknown] nitroglycerin 0.3 mg SL PRN PRN 10/08/19 [History Last Taken Unknown] warfarin 5 mg PO SUTUTHSA 10/08/19 [History Last Taken Unknown] warfarin 7.5 mg PO MOWEFR 10/08/19 [History Last Taken Unknown] Allergy/AdvReac Type Severity Reaction Status Date / Time No Known Allergies Allergy Verified 07/27/20 20:57 Surgical History History of right-sided carotid endarterectomy S/P CABG (coronary artery bypass graft) (~01/09/19) S/P left atrial appendage ligation S/P Maze operation for atrial fibrillation Status post Maze operation for atrial fibrillation Social History Smoking Status: Former smoker ROS ROS ED ROS Narrative No recent illness until today. Review of Systems ROS Unobtainable: Denies due to encephalopathy Constitutional Constitutional ED: Denies chills or fever(s) ENT ENT ED: Denies ear pain or sore throat Cardiovascular Cardiovascular: Denies chest pain Respiratory/Chest Respiratory/Chest: Denies dyspnea Gastrointestinal Gastrointestinal: Reports abdominal pain, nausea and vomiting; Denies constipation or diarrhea Genitourinary Genitourinary ED: Denies dysuria, hematuria or urinary frequency Musculoskeletal Musculoskeletal: Denies myalgias Integumentary Denies rash Neurologic Neurologic: Denies headache(s) Psychiatric Psychiatric: Denies depression Endocrine Endocrinology: Denies polyuria Hematologic/Lymphatic Hematologic/Lymphatic: Denies easy bruising Allergic/Immunologic Allergic/Immunologic ED: Denies urticaria EXAM Physical Exam Narrative Exam Narrative: Well-appearing older male. Accompanied by family. Vital signs stable afebrile. Lungs are clear. Heart regular rhythm. Abdomen soft nontender nondistended normal bowel sounds no peritoneal signs. Right upper and lower quadrants are unremarkable. Uncircumcised male. External exam unremarkable. Testicles nontender. No right inguinal hernia. The pain is in the right groin and right flank area is not reproducible. Back nontender. Moving all 4 extremities. Neurologically is awake and alert with no focal motor deficit. Const Vital Signs: 07/27/20 20:55 07/27/20 22:34 Temperature 98.8 F Temperature Source Temporal Pulse Rate 65 Respiratory Rate 18 Blood Pressure 203/86 H 171/84 H Blood Pressure Mean 125 113 Pulse Ox 97 Oxygen Delivery Method Room Air HEENT normocephalic and atraumatic Eyes PERRL and EOMs intact bilaterally Neck no lymphadenopathy, supple and no JVD General: Negative for tenderness Resp normal respiratory effort and clear to auscultation bilaterally Cardio regular rate, regular rhythm and no murmurs GI non-tender, non-distended and no masses GI Narrative: Abdominal exam is benign. There is no reproducible pain. There is no obvious hernia or mass. There is no pulsatile mass. Inspection: Negative for abdominal distention Auscultation: normoactive bowel sounds; Negative for hyperactive bowel sounds or hypoactive bowel sounds Palpation: soft; Negative for tender, guarding, rigid, hernia, mass, pulsatile mass or rebound tenderness present Back/Spine no CVA tenderness Extremity full ROM General Extremety ED: Negative for edema or tenderness General Extremity: Negative for edema Neuro Sensorium / Orientation: alert, oriented to person, oriented to place and oriented to time Motor Exam: strength 5/5 throughout Psych mental status grossly normal Skin Rashes: no rashes MDM MDM MDM Narrative Medical decision making narrative: Male sudden onset of right inguinal pain down his right flank also. Nonreproducible. Exam benign. Treated with morphine for pain and Zofran. CAT scan and labs are being obtained. He is on Coumadin and INR also be obtained. Repeat exam at 10:40 PM patient doing well. And I went over his CAT scan results and labs. They are basically unremarkable. He has a known abdominal aneurysm of 3.4 cm. It is unchanged from a CAT scan in 2018 about 3 years ago. It also any obvious stone. On repeat exam patient has some mild discomfort with flexion extension of his right hip. There is no reproducible groin pain. His backs benign. His abdomen is completely nontender. He has pain medication at home. Lab Data Lab results narrative: White count is 7. Hemoglobin 10.8 previously the patient was around 12-13. Patient is on Coumadin INR 3.0. Electrolytes unremarkable normal gap is 7. Creatinine of 1.1. Liver enzymes unremarkable. UA negative except occult blood. Labs: Laboratory Results - last 24 hr 07/27/20 07/27/20 07/27/20 21:15 21:15 21:15 WBC 7.6 RBC 4.38 L Hgb 10.8 L Hct 34.3 L MCV 78.3 L MCH 24.7 L MCHC 31.5 L RDW Std Deviation 43.0 RDW Coeff of Stew 15.1 H Plt Count 227 MPV 11.2 Immature Gran % (Auto) 0.300 Neut % (Auto) 75.5 H Lymph % (Auto) 15.1 L [place] % (Auto) 6.0 Eos % (Auto) 2.4 Baso % (Auto) 0.7 Absolute Neuts (auto) 5.8 Absolute Lymphs (auto) 1.15 Nucleated RBC % 0 PT 30.6 H INR 3.0 Sodium 137 Potassium 3.8 Chloride 107 Carbon Dioxide 23.0 Anion Gap 7 BUN 22 H Creatinine 1.13 Estim Creat Clear Calc 70.71 Est GFR (MDRD) Af Amer 83 Est GFR (MDRD) Non-Af 68 BUN/Creatinine Ratio 19.5 Glucose 119 H Calcium 8.8 Total Bilirubin 0.80 AST 18 ALT 24 Alkaline Phosphatase 84 Total Protein 7.2 Albumin 3.7 Globulin 3.5 Albumin/Globulin Ratio 1.1 Urine Color Urine Clarity Urine pH Ur Specific [place] Urine Protein Urine Glucose (UA) Urine Ketones Urine Occult Blood Urine Nitrite Urine Bilirubin Urine Urobilinogen Ur Leukocyte Esterase Urine RBC Urine WBC Ur Squamous Epith Cells Urine Bacteria Urine Mucus 07/27/20 21:22 WBC RBC Hgb Hct MCV MCH MCHC RDW Std Deviation RDW Coeff of Stew Plt Count MPV Immature Gran % (Auto) Neut % (Auto) Lymph % (Auto) [place] % (Auto) Eos % (Auto) Baso % (Auto) Absolute Neuts (auto) Absolute Lymphs (auto) Nucleated RBC % PT INR Sodium Potassium Chloride Carbon Dioxide Anion Gap BUN Creatinine Estim Creat Clear Calc Est GFR (MDRD) Af Amer Est GFR (MDRD) Non-Af BUN/Creatinine Ratio Glucose Calcium Total Bilirubin AST ALT Alkaline Phosphatase Total Protein Albumin Globulin Albumin/Globulin Ratio Urine Color Yellow Urine Clarity Sl. Cloudy Urine pH 6.0 Ur Specific [place] 1.020 Urine Protein 30 H Urine Glucose (UA) Normal Urine Ketones 5 H Urine Occult Blood 50 H Urine Nitrite Negative Urine Bilirubin Negative Urine Urobilinogen Normal Ur Leukocyte Esterase 25 H Urine RBC 0-5 SEEN Urine WBC 0-5 SEEN Ur Squamous Epith Cells 0-5 SEEN Urine Bacteria 0 SEEN Urine Mucus 0 SEEN Radiography Diagnostic Testing: Radiology Impression Abdomen/Pelvis CT 07/27/20 21:06 IMPRESSION: No acute abnormalities in the abdomen or pelvis. 3.8 cm fusiform infrarenal abdominal aortic aneurysm with a length of 7.4 cm. Mild interlobular septal thickening in the right lower lung indicative of mild interstitial edema. Fatty liver. Diverticulosis. Electronically Signed: Gama Mcnally MD at 22:30 EDT Tel , Service support , Discharge Plan Triage Chief Complaint: Abd Pain ED Provider: Polo Alves Dx/Rx/DC Orders Clinical Impression: Acute flank pain Instructions: ED Flank Pain, Uncertain Cause Prescriptions: No Action omeprazole 20 MG capsule 40 mg PO DAILY RF: 0 albuterol sulfate [Ventolin HFA] 1 INHALER inhaler 2 puff inhalation Q4H PRN PRN (Reason: Sob &/Or Wheezing) RF: 0 atorvastatin 40 MG tablet 40 mg PO QHS RF: 0 carvedilol 12.5 MG tablet 12.5 mg PO BID RF: 0 aspirin 81 MG tablet,delayed release (DR/EC) 81 mg PO DAILY RF: 0 fluticasone propionate 1 SPRAY spray,suspension 2 spray NASAL DAILY RF: 0 nifedipine 30 MG tablet extended release 24hr 30 mg PO DAILY RF: 0 lisinopril 20 MG tablet 20 mg PO DAILY RF: 0 warfarin 5 MG tablet 7.5 mg PO MOWEFR RF: 0 warfarin 5 MG tablet 5 mg PO SUTUTHSA RF: 0 nitroglycerin 0.3 MG tablet, sublingual 0.3 mg SL PRN PRN (Reason: Angina) RF: 0 Primary Care Provider: Braulio Stafford Referrals: Braulio Stafford MD [Primary Care Provider] - 3-5 Days if not improving Activity Restrictions/Additional Instructions: Your labs and CAT scan today were unremarkable. The aneurysm they previously diagnosed was unchanged. No obvious kidney stone was seen on the CAT scan. This may be musculoskeletal pain. I do not have any other specific cause for tonight. You may use your home [place] for pain. Return if you are feeling a lot worse otherwise follow-up with your doctor if you are not improving. Disposition Disposition: Home, self care
[2020-07-27] MEDS: Ondansetron 4 MG/2 ML Vial IV (21:18)
[2020-07-27] MEDS: morphine 8 MG/ML Syringe IV (21:18)
[2020-07-27] MEDS: 0.9% Normal Saline 1,000 ML 125 ML IV (21:18)
[2020-07-27 21:28] LABS: Bacteria 0 SEEN /hpf (None Seen); Mucous, Urine 0 SEEN /hpf (<or=2+)
[2020-07-27 21:45] LABS: Absolute Lymphocyte Count 1.15 X10^3/uL (0.83-4.51); Absolute Neutrophil Count 5.8 X10^3/uL (2.0-7.7); Basophil# 0.05 X10^3/uL; Basophil% 0.7 % (0-1); Eosinophil# 0.18 X10^3/uL; Eosinophils% 2.4 % (0-5); Hematocrit 34.3 % (40-54); Hemoglobin 10.8 g/dL (13.0-16.5); Lymphocyte # 1.15 X10^3/ul (0.83-4.51); Lymphocyte % 15.1 % (19-41); Mean Corp Hgb Conc 31.5 g/dL (32-36); Mean Corpuscular Hgb 24.7 pg (27.0-32.0); Mean Corpuscular Volume 78.3 fL (80-94); Mean Platelet Vol. 11.2 fl (6.2-12.0); Monocyte# 0.46 X10^3/uL; NRBC Flagged by Analyzer 0 % (0-5); Neutrophil # 5.77 X10^3/uL (2.7-7.7); Neutrophil % 75.5 % (47-70); Platelet Count 227 K/mm3 (150-450); RBC Distribution Width CV 15.1 % (11.6-14.6); Red Blood Count 4.38 M/mm3 (4.6-6.2); White Blood Count 7.6 K/mm3 (4.4-11.0)
[2020-07-27 21:46] LABS: Glucose, Dipstick Normal (Normal); Ketone-Dipstick 5 mg/dl (Negative); Leukocyte Esterase-Dipstick 25 /ul (Negative); Nitrite-Dipstick Negative (Negative); Occult Blood-Urine 50 /ul (Negative); Protein-Dipstick 30 mg/dl (Negative); Urine Bilirubin Dipstick Negative (Negative); Urine Urobilinogen Normal (Normal)
[2020-07-27 21:56] LABS: Prothrombin Time (Protime)PT. 30.6 SECONDS (11.7-14.9)
[2020-07-27 21:56] LABS: Color, Urine Yellow (Yellow); Urine Clarity Sl. Cloudy (Clear)
[2020-07-27 21:57] LABS: ALB/GLOB Ratio 1.1 RATIO (0.9-2.4); AST(SGOT) 18 U/L (15-37); Alanine Aminotransfer ALT/SGPT 24 U/L (16-61); Albumin, Serum 3.7 g/dL (3.2-5.0); Alkaline Phosphatase 84 U/L (45-117); Anion Gap 7 (5-15); BUN 22 mg/dL (7-18); BUN/Creat Ratio 19.5 RATIO (10-20); Calcium,Total 8.8 mg/dL (8.5-10.1); Chloride 107 mmol/L (98-107); Creatinine, Serum 1.13 mg/dL (0.70-1.30); EST Glomerular Filtration Rate 68 mL/min (>60); Est Glom Filt Rate - Afr Amer 83 mL/min (>60); Estimated Creatinine Clearance 70.71 ml/min; Globulin 3.5 g/dL (2.2-4.2); Glucose 119 mg/dL (74-106); Potassium 3.8 mmol/L (3.5-5.1); Protein, Total 7.2 g/dL (6.4-8.2); Sodium Level 137 mmol/L (136-145)
[2020-07-27 21:57] LABS: Red Blood Cells-Urine 0-5 SEEN /hpf (0-5); Squamous Epithelial Cells - UA 0-5 SEEN /hpf (0-5); White Blood Cells 0-5 SEEN /hpf (0-5)
[2020-07-27 22:34] VITALS: BP 171/84
== END 2020-07-27 23:08 | disposition home or self-care (01) ==
PROVIDERS: Emergency Provider Emergency Medicine; PCP Internal Medicine
DX: R10.30 Lower abdominal pain, unspecified (principal); I11.0 Hypertensive heart disease with heart failure; I50.23 Acute on chronic systolic (congestive) heart failure; I48.0 Paroxysmal atrial fibrillation; Z87.891 Personal history of nicotine dependence; Z86.718 Personal history of other venous thrombosis and embolism; Z79.82 Long term (current) use of aspirin; Z79.01 Long term (current) use of anticoagulants; Z79.899 Other long term (current) drug therapy
CPT/HCPCS: 74176; 80053; 81001; 85025; 85610; 96361; 96374; 96375; 99283; J7030; A4216; J2405

== ENCOUNTER 2021-04-08 08:23 | Emergency (ER) | payer MEDICARE, OTHER, SELFPAY ==
[2019-05-01 07:27] VITALS: BMI 33.3
[2021-04-08 08:23] VITALS: BP 146/73; PULSE 58; RESP 16; TEMP 36.5; O2SAT 97; BMI 33.5
--- NOTE | 2021-04-08 09:03 | RAD_ITS ---
STUDY: X-RAY - PELVIS AND RIGHT HIP REASON FOR EXAM: Male, 70 years old. Pain TECHNIQUE: 3 views of the pelvis and hip. COMPARISON: None. FINDINGS: There is a non-specific bowel gas pattern. Normal visualized soft tissue structures. Normal bilateral iliac wings, sacroiliac joints and visualized sacrum. Normal bilateral superior and inferior pubic rami. There are degenerative changes of the pubic symphysis with articular narrowing and sclerosis. Normal bilateral ischial tuberosities. Normal visualized femoral head. There is osteoarthritic spur formation of the acetabular rim. There is moderate articular joint space narrowing of the hip. RAD/HIP, UNI W/ Pelvis 2-3 Views IMPRESSION: Moderate degree of osteoarthritis of the right hip joint. No fracture or dislocation. Electronically Signed: Bipin Palomino MD at 9:48 EST ,
--- NOTE | 2021-04-08 09:03 | VDLE_ITS ---
Reason For Study: Pain RIGHT GSV is normal. CFV is compressible, spontaneous, phasic, competent and demonstrates normal augmentation. FV is compressible, spontaneous, phasic, competent and demonstrates normal augmentation. POP V is compressible, spontaneous, phasic, competent and demonstrates normal augmentation. T/P Trunk is compressible. PTV is compressible. RT PerV is compressible. Procedure This is a venous duplex using B-mode, color flow and spectral Doppler. Exam performed portable in ED. A preliminary report was called and/or faxed to [facility]. VL/Venous Duplex US, Unilateral Interpretation Summary There is no evidence of right lower extremity deep vein thrombosis. Right great saphenous vein appears patent and compressible segmentally. Ordering Physician: Francis Alfaro Referring Physician: Braulio Stafford M.D. Performed By: Donna Whelan RVT
--- NOTE | 2021-04-08 09:30 | CT_ITS ---
STUDY: CT LUMBAR SPINE WITHOUT CONTRAST REASON FOR EXAM: Male, 70 years old. PAIN RADIATION DOSAGE (If Supplied By Facility): CTDIvol = ( 34.86 ) mGy, DLP = ( 1300.64 ) mGycm TECHNIQUE: The patient was scanned in a multi detector CT scanner. High resolution transaxial imaging was performed. Images were obtained from L1 to S1 vertebral level. Sagittal and coronal images were reconstructed. Individualized dose optimization techniques were used for this CT. COMPARISON: None FINDINGS: There is straightening of the normal lumbar lordosis. There is no substantial scoliosis. Spondylosis. L1-2: Mild degree of disc space narrowing. Anterior spondylosis. Moderate degree of bilateral neural foraminal stenosis due to facet joint osteoarthropathy and hypertrophy of the ligamenta flava. L2-3: Moderate degree of disc space narrowing and disc degeneration. Spondylosis. There is evidence of a facet joint osteoarthritis and hypertrophy with bilateral neural foraminal stenosis. There is a moderate degree of central canal stenosis due to hypertrophy of the ligamenta flava. L3-4: Mild degree of disc space narrowing. Spondylosis. Facet joint osteoarthritis. Moderate degree of bilateral neural foraminal stenosis. Mild degree of central canal stenosis. L4-5: Moderate degree of disc space narrowing. Anterior spondylosis. Mild degree of diffuse posterior disc bulge causing deformity of thecal sac. Bilateral neural foraminal stenosis. L5-S1: Mild degree of disc space narrowing. Spondylosis. No significant stenosis seen. Atherosclerotic calcification of the aorta and the major branches. CT/Spine Lumbar without Contrast IMPRESSION: Multilevel degenerative changes, as described above. Multilevel central and neural foraminal stenosis. Electronically Signed: Bipin Palomino MD at 9:51 EST ,
--- NOTE | 2021-04-08 09:38 | ED.VIS.LOWEX ---
HPI History of Present Illness Chief Complaint: Lower Extremity Injury Narrative Narrative: Patient with past medical history of coronary artery disease, atrial fibrillation, previous DVT on Coumadin presents with right lower extremity pain, mainly hip and thigh pain that has had for the last few days. He states he recently returned from [place] on to Wednesday and began having pain that radiated to his right hip, and then in the middle of his right thigh down to his knee. He denies any fevers or chills. No loss of bowel or bladder. No saddle anesthesia. He denies any trauma to his hip. Of note, he does have history of chronic low back pain for which he takes Tylenol and [place]. He called his primary care physician's office today who recommended that he be evaluated in the ED for his right-sided low back pain, and his leg pain. He denies any chest pain or shortness of breath. No other symptoms. [facility] Medical History Acute hypoxemic respiratory failure Acute hypoxemic respiratory failure Acute on chronic systolic CHF (congestive heart failure) MARCO ANTONIO (acute kidney injury) Aspiration pneumonia due to inhalation of vomitus Cardiac arrest (01/14/19) Implantable cardioverter-defibrillator (ICD) in situ IVC thrombosis Paroxysmal atrial fibrillation Personal history of DVT (deep vein thrombosis) Primary hypertension Retroperitoneal hematoma Severe aortic valve stenosis Home Medications albuterol sulfate [Ventolin HFA] 2 puff INHALATION Q4H PRN PRN 12/29/12 [History Last Taken Unknown] omeprazole 40 mg PO DAILY 12/29/12 [History Last Taken 12/28/12] aspirin 81 mg PO DAILY 03/28/19 [History Last Taken Unknown] atorvastatin 40 mg PO QHS 03/28/19 [History Last Taken Unknown] carvedilol 12.5 mg PO BID 03/28/19 [History Last Taken Unknown] fluticasone propionate 2 spray NASAL DAILY 03/28/19 [History Last Taken Unknown] lisinopril 20 mg PO DAILY 10/08/19 [History Last Taken Unknown] nitroglycerin 0.3 mg SL PRN PRN 10/08/19 [History Last Taken Unknown] warfarin 5 mg PO SUTUTHSA 10/08/19 [History Last Taken Unknown] warfarin 7.5 mg PO MOWEFR 08/16/20 [History Last Taken Unknown] Allergy/AdvReac Type Severity Reaction Status Date / Time No Known Allergies Allergy Verified 04/08/21 08:23 Surgical History History of right-sided carotid endarterectomy S/P CABG (coronary artery bypass graft) (~01/09/19) S/P left atrial appendage ligation S/P Maze operation for atrial fibrillation Status post Maze operation for atrial fibrillation Social History Smoking Status: Former smoker ROS ROS ED ROS Narrative Constitutional: No fever, no chills. HEENT: No sore throat. No neck pain. No loss of vision. No rhinorrhea. Cardiovascular: No chest pain. No palpitations. No pedal edema. Respiratory: No cough, no shortness of breath. Abdominal: No abdominal pain. No nausea. No vomiting. Genitourinary: No dysuria. No hematuria. Musculoskeletal: No myalgias. Right hip pain. Right midline thigh pain down to the knee. Neurologic: No headaches. No dizziness. No lightheadedness. No saddle anesthesia. No loss of bowel or bladder. Skin: No rash. No change in color. Psychiatric: No depression. No anxiety. EXAM Physical Exam Narrative Exam Narrative: Afebrile. Vital signs noted. HEENT: Normocephalic. Atraumatic. PERRL, EOMI. Neck soft and supple. No point tenderness or step off. Cardiovascular: Regular rate and rhythm. No murmurs, rubs, or gallops appreciated. Respiratory: No tachypnea. Lungs clear to auscultation bilaterally. Gastrointestinal: Abdomen soft, nontender, with normoactive bowel sounds. No rebound or guarding. Neurological: Awake. Alert. Nonfocal, nonlateralizing. Skin: No rash. Normal color. No pallor. Musculoskeletal: No pedal edema. Full range of motion extremities. He does have mild tenderness to palpation in the right paraspinal lumbar muscles. No evidence of vertebral point tenderness or bony step-off. No pain in sciatic notch. Questionable pain with logrolling. Pelvis stable. No shortening. Positive flexion and extension of hip and knee. Straight leg raising is negative bilaterally. Const Vital Signs: 04/08/21 08:23 Temperature 97.7 F L Temperature Source Oral Pulse Rate 58 L Respiratory Rate 16 Blood Pressure 146/73 H Blood Pressure Mean 97 Pulse Ox 97 Oxygen Delivery Method Room Air MDM MDM MDM Narrative Medical decision making narrative: Patient is already taking analgesics prior to arrival. He is already on Coumadin for DVT, but we will obtain an ultrasound of the right lower extremity and check his INR in case it is subtherapeutic. Additionally, I will obtain CT imaging of his lumbar spine given his previous surgeries. I suspect spinal stenosis and chronic changes. Additionally, I will obtain x-ray of the pelvis and hip on the right to look for occult fracture. Ultrasound of the right lower extremity shows no evidence of DVT. INR is therapeutic at 2.2. CT of the lumbar spine does show joint space narrowing and spinal stenosis. X-ray of the hip and pelvis shows no evidence of fracture but there are degenerative changes in the right hip. At this point in time, I feel he can be discharged safely home to follow-up with his primary care physician. He will continue his pain medicine regime. He was told that he may need outpatient physical therapy and MRI and possible referral to either a spine surgeon versus orthopedic surgeon for his hip depending on where his pain may be originating from. Return instructions were reviewed. Disposition is discharged home in stable condition. Lab Data Labs: Laboratory Results - last 24 hr 04/08/21 09:15 PT 23.6 H INR 2.2 Radiography Diagnostic Testing: Clinical Impression(s) from Imaging Studies Hip/Pelvis X-Ray 04/08/21 09:03 IMPRESSION: Moderate degree of osteoarthritis of the right hip joint. No fracture or dislocation. Electronically Signed: Bipin Palomino MD at 9:48 EST , Lumbar Spine CT 04/08/21 09:30 IMPRESSION: Multilevel degenerative changes, as described above. Multilevel central and neural foraminal stenosis. Electronically Signed: Bipin Palomino MD at 9:51 EST , Discharge Plan Triage Chief Complaint: Lower Extremity Injury ED Provider: Francis Alfaro Dx/Rx/DC Orders Clinical Impression: Acute pain of right thigh, Lumbar back pain with radiculopathy affecting right lower extremity Instructions: Common Spine and Disk Problems, Understanding Lumbar Radiculopathy, ED Back Pain (Acute or Chronic) Prescriptions: No Action omeprazole 20 MG capsule 40 mg PO DAILY RF: 0 albuterol sulfate [Ventolin HFA] 1 INHALER inhaler 2 puff inhalation Q4H PRN PRN (Reason: Sob &/Or Wheezing) RF: 0 atorvastatin 40 MG tablet 40 mg PO QHS RF: 0 carvedilol 12.5 MG tablet 12.5 mg PO BID RF: 0 aspirin 81 MG tablet,delayed release (DR/EC) 81 mg PO DAILY RF: 0 fluticasone propionate 1 SPRAY spray,suspension 2 spray NASAL DAILY RF: 0 lisinopril 20 MG tablet 20 mg PO DAILY RF: 0 warfarin 5 MG tablet 7.5 mg PO MOWEFR RF: 0 warfarin 5 MG tablet 5 mg PO SUTUTHSA RF: 0 nitroglycerin 0.3 MG tablet, sublingual 0.3 mg SL PRN PRN (Reason: Angina) RF: 0 Primary Care Provider: Braulio Stafford Referrals: Braulio Stafford MD [Primary Care Provider] - 1 Week Disposition Disposition: Home, Self Care
[2021-04-08 09:39] LABS: International Normalized Ratio 2.2; Prothrombin Time (Protime)PT. 23.6 SECONDS (11.7-14.9)
[2021-04-08 12:00] VITALS: BP 139/74; PULSE 62; RESP 15; O2SAT 99
== END 2021-04-08 12:00 | disposition home or self-care (01) ==
PROVIDERS: Emergency Provider Emergency Medicine; PCP Internal Medicine; Visit Provider Emergency Medicine
DX: M48.061 Spinal stenosis, lumbar region without neurogenic claudication (principal); I11.0 Hypertensive heart disease with heart failure; I50.23 Acute on chronic systolic (congestive) heart failure; I48.0 Paroxysmal atrial fibrillation; M54.16 Radiculopathy, lumbar region; M16.11 Unilateral primary osteoarthritis, right hip; M79.651 Pain in right thigh; I25.10 Atherosclerotic heart disease of native coronary artery without angina pectoris; G89.29 Other chronic pain; Z95.1 Presence of aortocoronary bypass graft; Z79.01 Long term (current) use of anticoagulants; Z79.82 Long term (current) use of aspirin; Z79.899 Other long term (current) drug therapy; Z86.718 Personal history of other venous thrombosis and embolism; Z86.74 Personal history of sudden cardiac arrest; Z87.891 Personal history of nicotine dependence
CPT/HCPCS: 72131; 73502; 85610; 93971; 99282

== ENCOUNTER 2022-06-09 15:32 | Inpatient (IN) | payer MEDICARE, OTHER, SELFPAY ==
[2019-05-01 07:27] VITALS: BMI 33.3
[2022-06-09] VITALS (22 sets, daily range): BP systolic 111–193; BP diastolic 59–103; PULSE 60–152; RESP 12–20; TEMP 36.1–36.4; O2SAT 94–99; BMI 34.2; BMI 33.7
--- NOTE | 2022-06-09 16:17 | EKG12_ITS ---
Test Reason : PALPS Blood Pressure : / mmHG Vent. Rate : 125 BPM Atrial Rate : 144 BPM P-R Int : 000 ms QRS Dur : 164 ms QT Int : 310 ms P-R-T Axes : 000 051 236 degrees QTc Int : 447 ms Atrial fibrillation Left bundle branch block Abnormal ECG Confirmed by THERESA MACIAS, ISSAC ([id number]), desk editor MARIANA CURTIS ([id number]) on 06/15/2022 9:56:36 AM Referred By: RYANN Confirmed By:ISSAC CARDENAS MD
--- NOTE | 2022-06-09 16:20 | ED.VIS.CHEST ---
HPI History of Present Illness Chief Complaint: Palpitations Informant: patient Narrative Narrative: Patient is a 71-year-old male with significant past medical history including aortic valve replacement, coronary artery disease, proximal atrial fibrillation (long-term Coumadin therapy) chronic systolic heart failure, CKD 3, history of cardiac arrest status post aortic valve replacement, right endarterectomy and ICD. 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 Moncada through [facility]. He is presenting with palpitations. Patient states has been having intermittent palpitations for the past 5 days but they have gotten worse and started lasting longer. When he has a palpitations he gets tightness in his chest. In between he states he feels fine. He notes he had about 20 pound weight gain over the past month or so but attributes it to poor diet. Patient states his INR was subtherapeutic at 1.9 last week. Denies any swelling of his legs. [facility] Medical History Acute hypoxemic respiratory failure Acute hypoxemic respiratory failure Acute on chronic systolic CHF (congestive heart failure) MARCO ANTONIO (acute kidney injury) Aspiration pneumonia due to inhalation of vomitus Cardiac arrest (01/14/19) Implantable cardioverter-defibrillator (ICD) in situ IVC thrombosis Paroxysmal atrial fibrillation Personal history of DVT (deep vein thrombosis) Primary hypertension Retroperitoneal hematoma Severe aortic valve stenosis Home Medications albuterol sulfate 90 mcg/actuation aerosol inhaler (Ventolin HFA) 2 puff inhalation Q4H PRN PRN Sob &/Or Wheezing 12/29/12 [History Last Taken Unknown] aspirin 81 mg tablet,delayed release 81 mg PO DAILY 03/28/19 [History Last Taken Unknown] atorvastatin 40 mg tablet 40 mg PO QHS 03/28/19 [History Last Taken Unknown] fluticasone propionate 50 mcg/actuation nasal spray,suspension 2 spray NASAL DAILY PRN PRN Allergy Symptoms 03/28/19 [History Last Taken Unknown] lisinopril 20 mg tablet 20 mg PO DAILY 10/08/19 [History Last Taken Unknown] nitroglycerin 0.3 mg sublingual tablet 0.3 mg SL PRN PRN Angina 10/08/19 [History Last Taken Unknown] warfarin 5 mg tablet 5 mg PO DANIEL Check with primary doctor 10/08/19 [History Last Taken Unknown] warfarin 5 mg tablet 7.5 mg PO QWEEK Check with primary doctor 10/08/19 [History Last Taken Unknown] amlodipine 5 mg tablet (Norvasc) 5 mg PO DAILY Check with primary doctor 06/09/22 [History Last Taken Unknown] hydrocodone 7.5 mg-acetaminophen 325 mg tablet 1 tab PO Q12H PRN PRN Pain 06/09/22 [History Last Taken Unknown] metoprolol tartrate 100 mg tablet 150 mg PO BID Check with primary doctor 06/09/22 [History Last Taken Unknown] omeprazole 40 mg capsule,delayed release 40 mg PO DAILY Check with primary doctor 06/09/22 [History Last Taken Unknown] Allergy/AdvReac Type Severity Reaction Status Date / Time No Known Allergies Allergy Verified 06/09/22 15:34 Family History Father Heart disease High cholesterol Bladder cancer Mother Heart disease High cholesterol Surgical History History of right-sided carotid endarterectomy S/P CABG (coronary artery bypass graft) (~01/09/19) S/P left atrial appendage ligation S/P Maze operation for atrial fibrillation Status post Maze operation for atrial fibrillation Social History household members: significant other housing: house number of children: 1 pets and animals: Yes (dog) Smoking Status: Former smoker ROS ROS ED Constitutional Constitutional ED: Denies chills or fever(s) Cardiovascular Cardiovascular: Reports as per HPI, chest pain, palpitations and racing heartbeat Respiratory/Chest Respiratory/Chest: Denies cough or dyspnea Gastrointestinal Gastrointestinal: Denies abdominal pain, nausea or vomiting Musculoskeletal Musculoskeletal: Denies arthralgias or myalgias Integumentary Denies rash Neurologic Neurologic: Denies headache(s) or weakness Hematologic/Lymphatic Hematologic/Lymphatic: Reports easy bleeding EXAM Physical Exam Const Vital Signs: 06/09/22 15:32 06/09/22 16:19 06/09/22 17:02 Temperature 97 F L Temperature Source Temporal Pulse Rate 152 H 147 H Respiratory Rate 20 H 17 Blood Pressure 151/103 H 111/89 H Blood Pressure Mean 119 96 Blood Pressure Source Blood Pressure Position Blood Pressure Location Pulse Ox 97 98 99 Oxygen Delivery Method Room Air Nasal Cannula Oxygen Flow Rate (L/min) 2 06/09/22 16:32 06/09/22 17:00 06/09/22 17:10 Temperature Temperature Source Pulse Rate 61 60 60 Respiratory Rate 14 18 12 Blood Pressure 163/87 H 163/87 H Blood Pressure Mean 112 112 Blood Pressure Source Blood Pressure Position Blood Pressure Location Pulse Ox 99 99 98 Oxygen Delivery Method Nasal Cannula Room Air Oxygen Flow Rate (L/min) 2 06/09/22 18:03 06/09/22 18:42 06/09/22 19:15 Temperature 97.6 F L 97.0 F L Temperature Source Temporal Oral Pulse Rate 71 106 H 61 Respiratory Rate 18 16 14 Blood Pressure 155/86 H 158/89 H 126/98 H Blood Pressure Mean 109 112 107 Blood Pressure Source Monitor Blood Pressure Position Supine Blood Pressure Location Right Arm Pulse Ox 99 99 Oxygen Delivery Method Room Air Room Air Oxygen Flow Rate (L/min) 06/09/22 19:21 06/09/22 19:30 06/09/22 19:45 Temperature Temperature Source Pulse Rate 106 H 60 73 Respiratory Rate 18 Blood Pressure 126/98 H 155/86 H 193/85 H Blood Pressure Mean 107 109 121 Blood Pressure Source Monitor Monitor Monitor Blood Pressure Position Supine Supine Supine Blood Pressure Location Right Arm Right Arm Right Arm Pulse Ox 98 Oxygen Delivery Method Room Air Oxygen Flow Rate (L/min) 06/09/22 20:03 Temperature Temperature Source Pulse Rate 61 Respiratory Rate 16 Blood Pressure 165/83 H Blood Pressure Mean 110 Blood Pressure Source Monitor Blood Pressure Position Supine Blood Pressure Location Pulse Ox 99 Oxygen Delivery Method Room Air Oxygen Flow Rate (L/min) Positive well nourished, well developed and obese General Appearance ED: well developed Nutritional Appearance: obese HEENT Reports moist mucous membranes normocephalic and atraumatic Eyes PERRL and EOMs intact bilaterally Neck supple and no JVD Resp normal respiratory effort and clear to auscultation bilaterally Cardio regular rhythm and no murmurs Rate: tachycardic Peripheral Pulses: pulses 2+ throughout GI normal to inspection, nondistended, normoactive bowel sounds and soft to palpation Extremity normal to inspection General Extremety ED: Negative for edema General Extremity: Negative for edema Neuro oriented x3 Motor Exam: Negative for general weakness Psych mental status grossly normal Skin no rashes or lesions noted MDM MDM MDM Narrative Medical decision making narrative: Is evaluated for episodes of palpitation. While in the room patient is oscillated between normal sinus rhythm and a wide-complex tachycardia. He is symptomatic during these episodes his blood pressure will drop however he is mentating throughout. Because he is hypotensive with these episodes will bolus amiodarone and start him on amiodarone drip. Will defer cardioversion at this time especially because he self converted so frequently. Patient has had good response to IV amiodarone. Work-up otherwise normal in the ER with no signs of ACS. He is subtherapeutic on his INR. Patient will be admitted for further cardiac evaluation of his symptomatic arrhythmia. Case discussed with admitting physician. Lab Data Attestation: I reviewed the patient's lab results. Labs: Laboratory Results - last 24 hr 06/09/22 06/09/22 06/09/22 16:10 16:10 16:10 WBC 7.6 RBC 4.68 Hgb 12.9 L Hct 39.5 L MCV 84.4 MCH 27.6 MCHC 32.7 RDW Std Deviation 49.1 H RDW Coeff of Stew 15.9 H Plt Count 211 MPV 10.9 Immature Gran % (Auto) 0.300 Neut % (Auto) 47.6 Lymph % (Auto) 34.6 [place] % (Auto) 12.3 H Eos % (Auto) 4.5 Baso % (Auto) 0.7 Absolute Neuts (auto) 3.6 Absolute Lymphs (auto) 2.62 Nucleated RBC % 0 PT 19.4 H INR 1.7 Sodium 138 Potassium 3.6 Chloride 110 H Carbon Dioxide 27.0 Anion Gap 1 L BUN 17 Creatinine 1.18 Estim Creat Clear Calc 65.83 Est GFR (MDRD) Af Amer 78 Est GFR (MDRD) Non-Af 65 BUN/Creatinine Ratio 14.4 Glucose 93 Calcium 9.0 Magnesium 1.7 Troponin I High Sens 47 B-Natriuretic Peptide TSH 2.19 06/09/22 06/09/22 06/09/22 16:10 18:30 18:30 WBC RBC Hgb Hct MCV MCH MCHC RDW Std Deviation RDW Coeff of Stew Plt Count MPV Immature Gran % (Auto) Neut % (Auto) Lymph % (Auto) [place] % (Auto) Eos % (Auto) Baso % (Auto) Absolute Neuts (auto) Absolute Lymphs (auto) Nucleated RBC % PT INR Sodium Potassium Chloride Carbon Dioxide Anion Gap BUN Creatinine Estim Creat Clear Calc Est GFR (MDRD) Af Amer Est GFR (MDRD) Non-Af BUN/Creatinine Ratio Glucose Calcium Magnesium Troponin I High Sens 54 B-Natriuretic Peptide 314.2 H TSH 1.91 06/09/22 18:30 WBC RBC Hgb Hct MCV MCH MCHC RDW Std Deviation RDW Coeff of Stew Plt Count MPV Immature Gran % (Auto) Neut % (Auto) Lymph % (Auto) [place] % (Auto) Eos % (Auto) Baso % (Auto) Absolute Neuts (auto) Absolute Lymphs (auto) Nucleated RBC % PT INR Sodium Potassium Chloride Carbon Dioxide Anion Gap BUN Creatinine Estim Creat Clear Calc Est GFR (MDRD) Af Amer Est GFR (MDRD) Non-Af BUN/Creatinine Ratio Glucose Calcium Magnesium 1.7 Troponin I High Sens B-Natriuretic Peptide TSH Radiography Chest X-Ray - ED: 1 View, Read by ED Physician, Read by Radiologist and No Acute Disease Diagnostic Testing: Clinical Impression(s) from Imaging Studies Chest X-Ray 06/09/22 16:30 IMPRESSION: No acute cardiopulmonary disease or major interval change. Electronically Signed: Tim Ramirez DO at 16:48 EDT Reading Location ID and State: [address] [place] [address] Tel [phone], Service support , Rhythm Strip Rhythm Strip: tachycardia Rate: 125 Ectopy: None EKG Initial EKG: Attestation: I personally reviewed and interpreted this EKG as follows: Comments: Wide-complex tachycardia at a rate of 125 bpm Normal axis Left bundle branch block Normal QTc Compared to prior EKG on 10/08/2021 patient does not appear to be in atrial fibrillation and continues to have a left bundle branch block Follow-up EKG: Attestation: I personally reviewed and interpreted this EKG as follows: Comments: Sinus rhythm with marked sinus arrhythmia at a rate of 80 bpm with first-degree AV block with NV interval of 212 Normal axis Left bundle arslan block Arrhythmia is new from the prior EKG Discharge Plan Dx/Rx/DC Orders Clinical Impression: Cardiac arrhythmia, Subtherapeutic international normalized ratio (INR), Heart palpitations Disposition Disposition: Acute Care [facility] Discharge Date/Time: 06/09/22 19:02
[2022-06-09 16:28] LABS: Absolute Lymphocyte Count 2.62 X10^3/uL (0.83-4.51); Absolute Neutrophil Count 3.6 X10^3/uL (2.0-7.7); Basophil# 0.05 X10^3/uL; Basophil% 0.7 % (0-1); Eosinophil# 0.34 X10^3/uL; Eosinophils% 4.5 % (0-5); Hematocrit 39.5 % (40-54); Hemoglobin 12.9 g/dL (13.0-16.5); Lymphocyte # 2.62 X10^3/ul (0.83-4.51); Lymphocyte % 34.6 % (19-41); Mean Corp Hgb Conc 32.7 g/dL (32-36); Mean Corpuscular Hgb 27.6 pg (27.0-32.0); Mean Corpuscular Volume 84.4 fL (80-94); Mean Platelet Vol. 10.9 fl (6.2-12.0); Monocyte# 0.93 X10^3/uL; Monocyte% 12.3 % (0-10); NRBC Flagged by Analyzer 0 % (0-5); Neutrophil # 3.62 X10^3/uL (2.7-7.7); Neutrophil % 47.6 % (47-70); Platelet Count 211 K/mm3 (150-450); RBC Distribution Width CV 15.9 % (11.6-14.6); RBC Distribution Width SD 49.1 fl (35.1-43.9); Red Blood Count 4.68 M/mm3 (4.6-6.2); White Blood Count 7.6 K/mm3 (4.4-11.0)
--- NOTE | 2022-06-09 16:30 | RAD_ITS ---
STUDY: X-RAY CHEST REASON FOR EXAM: Male, 71 years old. Chest pain. Palpitations and worsening shortness of breath over the past week. History of atrial fibrillation with pacemaker TECHNIQUE: Single AP portable view of the chest. COMPARISON: October 08, 2019. FINDINGS: The lungs are mildly hyperexpanded. There is chronic interstitial coarsening without new infiltrate or mass. No pneumothorax. There is no demonstrated pleural abnormality. Sternal cerclage wires and vascular clips are present from a prior sternotomy and coronary artery bypass graft procedure (CABG). The heart is normal in size. Stable cardiac pacemaker/ICD. Normal mediastinum and bhavya. Normal visualized pulmonary arteries. There is atherosclerotic calcification of the aortic arch with tortuosity. The thoracic spine is obscured by the mediastinum. There is anterior fusion of lower cervical spine. Normal visualized ribs, clavicles, and shoulders. There is no demonstrated abnormality of the visualized soft tissue structures of the upper abdomen. RAD/Chest 1 View (Portable) IMPRESSION: No acute cardiopulmonary disease or major interval change. Electronically Signed: Tim Ramirez DO at 16:48 EDT Reading Location ID and State: [address] [place] [address] Tel [phone], Service support ,
--- NOTE | 2022-06-09 16:30 | EKG12_ITS ---
Test Reason : AM EKG Blood Pressure : / mmHG Vent. Rate : 060 BPM Atrial Rate : 060 BPM P-R Int : 248 ms QRS Dur : 174 ms QT Int : 508 ms P-R-T Axes : 042 -09 171 degrees QTc Int : 508 ms Atrial-paced rhythm with prolonged AV conduction Left bundle branch block Abnormal ECG When compared with ECG of 09-JUN-2022 21:48, MANUAL COMPARISON REQUIRED, DATA IS UNCONFIRMED Confirmed by THERESA MACIAS, ISSAC ([id number]), newspaper copy editor MARIANA CURTIS ([id number]) on 06/11/2022 7:49:49 AM Referred By: Confirmed By:ISSAC CARDENAS MD
[2022-06-09 16:46] LABS: International Normalized Ratio 1.7; Prothrombin Time (Protime)PT. 19.4 SECONDS (11.7-14.9)
[2022-06-09] MEDS: 0.9% Normal Saline 1,000 ML 1000 ML IV (16:46)
[2022-06-09 16:49] LABS: Anion Gap 1 (5-15); BUN 17 mg/dL (7-18); BUN/Creat Ratio 14.4 RATIO (10-20); Chloride 110 mmol/L (98-107); Creatinine, Serum 1.18 mg/dL (0.70-1.30); EST Glomerular Filtration Rate 65 mL/min (>60); Est Glom Filt Rate - Afr Amer 78 mL/min (>60); Estimated Creatinine Clearance 65.83 ml/min; Glucose 93 mg/dL (74-106); Magnesium 1.7 mg/dL (1.6-2.6); Potassium 3.6 mmol/L (3.5-5.1); Sodium Level 138 mmol/L (136-145); Thyroid Stim Hormone (TSH) 2.19 uIU/mL (0.358-3.74); Troponin-I HS (w/2H Reflex) 47 pg/mL (3.0-78.0)
[2022-06-09 16:59] LABS: BNP,B-Type NATRIURETIC PEPTIDE 314.2 pg/mL (0-100)
[2022-06-09 18:22] LABS: Reflex Troponin-HS? (from REC) Y
--- NOTE | 2022-06-09 18:27 | NURSING ---
HOSPITALIST CALLED BACK
[2022-06-09 19:04] LABS: Troponin-I HS 54 pg/mL (3.0-78.0)
--- NOTE | 2022-06-09 20:11 | ECHOCS_ITS ---
Reason For Study: Afib/Flutter Procedure This was a 2D Doppler, Color Flow transthoracic echocardiogram. The study was technically difficult. Contrast injection was performed. Exam performed portable in patient room. Left Ventricle Moderately dilated left ventricle. The estimated ejection fraction is 30-35 %. Right Ventricle Normal right ventricle. AICD/pacemaker lead noted on the right side. Normal systolic function. Atria The left atrium is moderately enlarged. Normal right atrium. Mitral Valve The mitral valve is structurally normal. No prolapse or stenosis seen. Mild-Moderate (1-2+) eccentric mitral valve insufficiency. Tricuspid Valve Normal tricuspid valve. Mild tricuspid valve insufficiency. Aortic Valve Moderate diffuse aortic valve calcification. Mild aortic valve stenosis Aortic valve area calculated 1.7 cm?? Maximum pressure gradient across aortic valve is 19.1 mmHg Mean pressure gradient 9.0 mmHg. Medication Diluted definity 3ml given slow IV push to enhance endocardial definition. MMode/2D Measurements & Calculations LVIDd: 5.5 cm IVSd: 1.3 cm LVOT diam: 2.1 cm LVIDs: 4.2 cm LVPWd: 0.93 cm LVOT area: 3.5 cm2 RVDd: 5.2 cm FS: 22.6 % Ao root diam: 3.7 cm LAV(MOD-bp): 88.3 ml LA dimension: 5.1 cm LA A4 area: 24.2 cm2 LAV(MOD-bp) Indexed: 36.8 ml/m2 LAV(MOD-sp2): 96.9 ml LAV(MOD-sp4): 80.1 ml RA A4 area: 25.1 cm2 Time Measurements MV dec time: 0.36 sec Doppler Measurements & Calculations MV E max brannon: 80.0 cm/sec Lat Peak E' Brannon: 11.2 cm/sec Med Peak E' Brannon: 7.1 cm/sec MV A max brannon: 49.5 cm/sec E/E' lat: 7.2 E/E' med: 11.2 MV E/A: 1.6 MV V2 max: 122.4 cm/sec MV P1/2t max brannon: 121.4 cm/sec Ao V2 max: 217.9 cm/sec MV max P.0 mmHg MV P1/2t: 135.0 msec Ao max P.1 mmHg MV V2 mean: 58.4 cm/sec Ao V2 mean: 138.7 cm/sec MV mean P.7 mmHg MV dec slope: 263.3 cm/sec2 Ao mean P.0 mmHg MV V2 VTI: 35.7 cm MVA(P1/2t): 1.6 cm2 Ao V2 VTI: 48.2 cm AV (velocity ratio): 0.47 MVA(VTI): 2.3 cm2 ZELALEM(I,D): 1.7 cm2 ZELALEM(V,D): 1.7 cm2 LV V1 max: 107.4 cm/sec MR max brannon: 478.5 cm/sec SV(LVOT): 80.5 ml LV V1 max P.6 mmHg MR max P.6 mmHg LV V1 mean P.5 mmHg LV V1 mean: 75.7 cm/sec LV V1 VTI: 22.8 cm PA V2 max: 116.2 cm/sec TR max brannon: 269.8 cm/sec PA V2 mean: 78.9 cm/sec TR max P.1 mmHg ECHO/Echo Complete W/ Contrast Interpretation Summary The estimated ejection fraction is 30-35 %. AICD/pacemaker lead noted on the right side Mild aortic valve stenosis Aortic valve area calculated 1.7 cm?? Maximum pressure gradient across aortic valve is 19.1 mmHg Mean pressure gradient 9.0 mmHg No previous echocardiogram to compare Ordering Physician: Vazquez Garcia Referring Physician: Braulio Stafford M.D. Performed By: Pascual Hayward RCS
--- NOTE | 2022-06-09 20:15 | EKG12_ITS ---
Test Reason : RYTHM CHANGE Blood Pressure : / mmHG Vent. Rate : 060 BPM Atrial Rate : 060 BPM P-R Int : 238 ms QRS Dur : 178 ms QT Int : 500 ms P-R-T Axes : 057 018 134 degrees QTc Int : 500 ms Atrial-paced rhythm with prolonged AV conduction Left bundle branch block Abnormal ECG When compared with ECG of 09-JUN-2022 19:39, MANUAL COMPARISON REQUIRED, DATA IS UNCONFIRMED Confirmed by THERESA MACIAS, ISSAC ([id number]), technical editor MARIANA CURTIS ([id number]) on 06/11/2022 7:51:09 AM Referred By: Confirmed By:ISSAC CARDENAS MD
[2022-06-09 20:39] LABS: Magnesium 1.7 mg/dL (1.6-2.6)
--- NOTE | 2022-06-09 20:52 | PCM.HP.STD ---
HPI - General General Date of Admission: 06/09/22 Date of Service: 06/09/22 Chief Complaint: Palpitations x5 days HPI Narrative CLEMENTINA WILKS, is a 71 M with a history of coronary disease status post CABG, right carotid endarterectomy, atrial fibrillation and history of cardiac arrest status post ICD. Patient presented to hospital with 5 days history of intermittent episodes of palpitations. Today symptoms became more severe, frequent and persistent with associated lightheadedness. Presented to the hospital and was found to be having intermittent episodes of wide-complex regular tachycardia. Patient denied any chest pain but had some chest pressure. No nausea vomiting. Troponin was 46 on presentation. [facility] Medical History Acute hypoxemic respiratory failure Acute hypoxemic respiratory failure Acute on chronic systolic CHF (congestive heart failure) MARCO ANTONIO (acute kidney injury) Aspiration pneumonia due to inhalation of vomitus Cardiac arrest (01/14/19) Implantable cardioverter-defibrillator (ICD) in situ IVC thrombosis Paroxysmal atrial fibrillation Personal history of DVT (deep vein thrombosis) Primary hypertension Retroperitoneal hematoma Severe aortic valve stenosis Home Medications albuterol sulfate 90 mcg/actuation aerosol inhaler (Ventolin HFA) 2 puff inhalation Q4H PRN PRN Sob &/Or Wheezing 12/29/12 [History Last Taken Unknown] aspirin 81 mg tablet,delayed release 81 mg PO DAILY 03/28/19 [History Last Taken Unknown] atorvastatin 40 mg tablet 40 mg PO QHS 03/28/19 [History Last Taken Unknown] fluticasone propionate 50 mcg/actuation nasal spray,suspension 2 spray NASAL DAILY PRN PRN Allergy Symptoms 03/28/19 [History Last Taken Unknown] lisinopril 20 mg tablet 20 mg PO DAILY 10/08/19 [History Last Taken Unknown] nitroglycerin 0.3 mg sublingual tablet 0.3 mg SL PRN PRN Angina 10/08/19 [History Last Taken Unknown] warfarin 5 mg tablet 5 mg PO SUTUWETHFRSA Check with primary doctor 10/08/19 [History Last Taken Unknown] warfarin 5 mg tablet 7.5 mg PO QWEEK Check with primary doctor 10/08/19 [History Last Taken Unknown] amlodipine 5 mg tablet (Norvasc) 5 mg PO DAILY Check with primary doctor 06/09/22 [History Last Taken Unknown] hydrocodone 7.5 mg-acetaminophen 325 mg tablet 1 tab PO Q12H PRN PRN Pain 06/09/22 [History Last Taken Unknown] metoprolol tartrate 100 mg tablet 150 mg PO BID Check with primary doctor 06/09/22 [History Last Taken Unknown] omeprazole 40 mg capsule,delayed release 40 mg PO DAILY Check with primary doctor 06/09/22 [History Last Taken Unknown] Allergy/AdvReac Type Severity Reaction Status Date / Time No Known Allergies Allergy Verified 06/09/22 15:34 Family History Father Heart disease High cholesterol Bladder cancer Mother Heart disease High cholesterol Surgical History History of right-sided carotid endarterectomy S/P CABG (coronary artery bypass graft) (~01/09/19) S/P left atrial appendage ligation S/P Maze operation for atrial fibrillation Status post Maze operation for atrial fibrillation Social History household members: significant other housing: house number of children: 1 pets and animals: Yes (dog) Smoking Status: Former smoker ROS ROS Narrative Denies any shortness of breath or abdominal pain. Denies any nausea vomiting. All other systems reviewed and essentially negative as above in the body of the history. No lower extremity swelling. Vital Signs Vital Signs Vital Signs: 06/09/22 15:32 06/09/22 16:19 06/09/22 17:02 Temperature 36.1 C L Temperature Source Temporal Pulse Rate 152 H 147 H Respiratory Rate 20 H 17 Blood Pressure 151/103 H 111/89 H Blood Pressure Mean 119 96 Blood Pressure Source Blood Pressure Position Blood Pressure Location Pulse Ox 97 98 99 Oxygen Delivery Method Room Air Nasal Cannula Oxygen Flow Rate (L/min) 2 06/09/22 16:32 06/09/22 17:00 06/09/22 17:10 Temperature Temperature Source Pulse Rate 61 60 60 Respiratory Rate 14 18 12 Blood Pressure 163/87 H 163/87 H Blood Pressure Mean 112 112 Blood Pressure Source Blood Pressure Position Blood Pressure Location Pulse Ox 99 99 98 Oxygen Delivery Method Nasal Cannula Room Air Oxygen Flow Rate (L/min) 2 06/09/22 18:03 06/09/22 18:42 06/09/22 19:15 Temperature 36.4 C L 36.1 C L Temperature Source Temporal Oral Pulse Rate 71 106 H 61 Respiratory Rate 18 16 14 Blood Pressure 155/86 H 158/89 H 126/98 H Blood Pressure Mean 109 112 107 Blood Pressure Source Monitor Blood Pressure Position Supine Blood Pressure Location Right Arm Pulse Ox 99 99 Oxygen Delivery Method Room Air Room Air Oxygen Flow Rate (L/min) Weight Weight: 116 kg Body Mass Index (BMI) 33.7 Physical Exam Narrative General exam. Elderly man, appears comfortable not in any obvious distress, very pleasant, well-appearing HEENT. Oral mucosa moist no pallor jaundice Neck. Neck is supple Heart. First and second heart sounds only heard with ejection systolic murmur Abdomen full and soft. Extremities no pedal edema. Results Medical Records Data Attestation: I reviewed the patient's medical records Lab / Micro Data Attestation: I reviewed the patient's lab results. Result Diagrams: 06/09/22 16:10 06/09/22 16:10 Labs: Laboratory Results - last 24 hr 06/09/22 16:10: WBC 7.6, RBC 4.68, Hgb 12.9 L, Hct 39.5 L, MCV 84.4, MCH 27.6, MCHC 32.7, RDW Std Deviation 49.1 H, RDW Coeff of Stew 15.9 H, Plt Count 211, MPV 10.9, Immature Gran % (Auto) 0.300, Neut % (Auto) 47.6, Lymph % (Auto) 34.6, [place] % (Auto) 12.3 H, Eos % (Auto) 4.5, Baso % (Auto) 0.7, Absolute Neuts (auto) 3.6, Absolute Lymphs (auto) 2.62, Nucleated RBC % 0 06/09/22 16:10: Sodium 138, Potassium 3.6, Chloride 110 H, Carbon Dioxide 27.0, Anion Gap 1 L, BUN 17, Creatinine 1.18, Estim Creat Clear Calc 65.83, Est GFR (MDRD) Af Amer 78, Est GFR (MDRD) Non-Af 65, BUN/Creatinine Ratio 14.4, Glucose 93, Calcium 9.0, Magnesium 1.7, Troponin I High Sens 47, TSH 2.19 06/09/22 16:10: PT 19.4 H, INR 1.7 06/09/22 16:10: B-Natriuretic Peptide 314.2 H 06/09/22 18:30: Troponin I High Sens 54 06/09/22 18:30: Magnesium 1.7 Rhythm Strip Rhythm Strip: tachycardia Rate: 125 Ectopy: None Radiology Impression Chest X-Ray 06/09/22 16:30 IMPRESSION: No acute cardiopulmonary disease or major interval change. Electronically Signed: Tim Ramirez DO at 16:48 EDT Reading Location ID and State: [address] [place] [address] Tel [phone], Service support , Assessment & Plan Assessment/Plan (1) Paroxysmal SVT (supraventricular tachycardia): PLAN: Plan Assessment and plan 1. Paroxysmal supraventricular tachycardia versus paroxysmal atrial flutter with aberrant ventricular conduction. Discussed with cardiology over the telephone who suspects that paroxysmal ventricular tachycardia could still be a possibility and recommends continuing with amiodarone for now. Will follow-up in the morning. Keep on telemetry and continue to closely monitor. Initial potassium greater than 4 and magnesium greater than 2. 2. Coronary disease status post CABG. Troponins remain within normal.
[2022-06-09 21:09] LABS: Thyroid Stim Hormone (TSH) 1.91 uIU/mL (0.358-3.74)
--- NOTE | 2022-06-09 21:48 | EKG12_ITS ---
Test Reason : ADMIT EKG Blood Pressure : / mmHG Vent. Rate : 096 BPM Atrial Rate : 096 BPM P-R Int : 104 ms QRS Dur : 164 ms QT Int : 310 ms P-R-T Axes : 066 -19 148 degrees QTc Int : 391 ms Sinus rhythm with marked sinus arrhythmia with short FL with frequent AV dual-paced complexes Left bundle branch block Short burst of SVT Abnormal ECG When compared with ECG of 09-JUN-2022 15:45, MANUAL COMPARISON REQUIRED, DATA IS UNCONFIRMED Confirmed by THERESA MACIAS, ISSAC ([id number]), primer expeditor and drier MARIANA CURTIS ([id number]) on 06/11/2022 7:51:36 AM Referred By: Confirmed By:ISSAC CARDENAS MD
[2022-06-09] MEDS: Metoprolol Tartrate 50 MG Tablet 150 MG PO (22:42)
[2022-06-09] MEDS: Atorvastatin Calcium 40 MG Tablet PO (22:45)
[2022-06-10] VITALS (27 sets, daily range): BP systolic 134–171; BP diastolic 61–90; PULSE 60–74; RESP 14–20; TEMP 36.1–36.5; O2SAT 92–100; BMI 34.0
[2022-06-10] MEDS: 0.9% Saline Lock 10 ML Syringe IV ×4 (00:23→19:56)
[2022-06-10 05:13] LABS: Hematocrit 38.1 % (40-54); Hemoglobin 12.4 g/dL (13.0-16.5); Mean Corp Hgb Conc 32.5 g/dL (32-36); Mean Corpuscular Hgb 27.9 pg (27.0-32.0); Mean Corpuscular Volume 85.6 fL (80-94); Mean Platelet Vol. 10.9 fl (6.2-12.0); Platelet Count 180 K/mm3 (150-450); RBC Distribution Width CV 15.9 % (11.6-14.6); RBC Distribution Width SD 49.8 fl (35.1-43.9); Red Blood Count 4.45 M/mm3 (4.6-6.2); White Blood Count 5.4 K/mm3 (4.4-11.0)
[2022-06-10 05:43] LABS: AST(SGOT) 18 U/L (15-37); Alanine Aminotransfer ALT/SGPT 26 U/L (16-61); Albumin, Serum 3.3 g/dL (3.2-5.0); Alkaline Phosphatase 76 U/L (45-117); Anion Gap 4 (5-15); BUN 14 mg/dL (7-18); BUN/Creat Ratio 13.1 RATIO (10-20); Calcium,Total 8.5 mg/dL (8.5-10.1); Chloride 110 mmol/L (98-107); Creatinine, Serum 1.07 mg/dL (0.70-1.30); EST Glomerular Filtration Rate 73 mL/min (>60); Est Glom Filt Rate - Afr Amer 88 mL/min (>60); Globulin 3.3 g/dL (2.2-4.2); Glucose 104 mg/dL (74-106); Phosphorus 2.7 mg/dL (2.5-4.9); Potassium 3.6 mmol/L (3.5-5.1); Protein, Total 6.6 g/dL (6.4-8.2); Sodium Level 140 mmol/L (136-145)
--- NOTE | 2022-06-10 07:54 | PCM.CONS.C ---
Assessment & Plan Assessment/Plan (1) Cardiac arrhythmia: (2) Paroxysmal SVT (supraventricular tachycardia): (3) PAF (paroxysmal atrial fibrillation): (4) S/P AVR (aortic valve replacement): (5) HTN (hypertension): QUALIFIERS: Hypertension type: essential hypertension Qualified Code(s): I10 - Essential (primary) hypertension (6) HLD (hyperlipidemia): QUALIFIERS: Hyperlipidemia type: unspecified Qualified Code(s): E78.5 - Hyperlipidemia, unspecified PLAN: Plan Will obtain a pacemaker interrogation of his device to further assess his arrhythmias that he has been having. For now we will continue on IV amiodarone once bag is complete we will switch over to p.o. amiodarone. Echocardiogram is pending. Heart rate does appear controlled on his current dose of home metoprolol. We will continue with current home blood pressure medications. HPI Consult Data Date of Consult: 06/10/22 HPI Narrative HPI Narrative: CLEMENTINA WILKS, is a 71 M who presented to the ER for concerns over increase in palpitations over the last 5 days. When he does have the palpitations he gets a tightness in his chest. He has a significant past medical history including aortic valve replacement, coronary artery disease, proximal atrial fibrillation (long-term Coumadin therapy) chronic systolic heart failure, CKD 3, history of cardiac arrest status post aortic valve replacement, right endarterectomy and ICD.? His offensive coordinator is Dr. Moncada [facility].? He is presenting with palpitations. Monitored while in the emergency room demonstrated sinus rhythm with wide-complex tachycardia. Wide-complex tachycardia has a heart rate of 125. Patient was started on IV amiodarone.Patient is CBC and BMP were normal. BT SILICA DRY PRESS HELPER was slightly elevated at 314. Troponins were negative at 47 and 54. [facility] Medical History Acute hypoxemic respiratory failure Acute hypoxemic respiratory failure Acute on chronic systolic CHF (congestive heart failure) MARC OANTONIO (acute kidney injury) Aspiration pneumonia due to inhalation of vomitus Cardiac arrest (01/14/19) Implantable cardioverter-defibrillator (ICD) in situ IVC thrombosis Paroxysmal atrial fibrillation Personal history of DVT (deep vein thrombosis) Primary hypertension Retroperitoneal hematoma Severe aortic valve stenosis Home Medications albuterol sulfate 90 mcg/actuation aerosol inhaler (Ventolin HFA) 2 puff inhalation Q4H PRN PRN Sob &/Or Wheezing 12/29/12 [History Last Taken Unknown] aspirin 81 mg tablet,delayed release 81 mg PO DAILY 03/28/19 [History Last Taken Unknown] atorvastatin 40 mg tablet 40 mg PO QHS 03/28/19 [History Last Taken Unknown] fluticasone propionate 50 mcg/actuation nasal spray,suspension 2 spray NASAL DAILY PRN PRN Allergy Symptoms 03/28/19 [History Last Taken Unknown] lisinopril 20 mg tablet 20 mg PO DAILY 10/08/19 [History Last Taken Unknown] nitroglycerin 0.3 mg sublingual tablet 0.3 mg SL PRN PRN Angina 10/08/19 [History Last Taken Unknown] warfarin 5 mg tablet 5 mg PO SUTUWETHFRSA Check with primary doctor 10/08/19 [History Last Taken Unknown] warfarin 5 mg tablet 7.5 mg PO QWEEK Check with primary doctor 10/08/19 [History Last Taken Unknown] amlodipine 5 mg tablet (Norvasc) 5 mg PO DAILY Check with primary doctor 06/09/22 [History Last Taken Unknown] hydrocodone 7.5 mg-acetaminophen 325 mg tablet 1 tab PO Q12H PRN PRN Pain 06/09/22 [History Last Taken Unknown] metoprolol tartrate 100 mg tablet 150 mg PO BID Check with primary doctor 06/09/22 [History Last Taken Unknown] omeprazole 40 mg capsule,delayed release 40 mg PO DAILY Check with primary doctor 06/09/22 [History Last Taken Unknown] Allergy/AdvReac Type Severity Reaction Status Date / Time No Known Allergies Allergy Verified 06/09/22 15:34 Family History Father Heart disease High cholesterol Bladder cancer Mother Heart disease High cholesterol Surgical History History of right-sided carotid endarterectomy S/P CABG (coronary artery bypass graft) (~01/09/19) S/P left atrial appendage ligation S/P Maze operation for atrial fibrillation Status post Maze operation for atrial fibrillation Social History household members: significant other housing: house number of children: 1 pets and animals: Yes (dog) Smoking Status: Former smoker ROS Constitutional Constitutional: Reports systems reviewed and no addt'l complaints, except as documented Physical Exam Const alert, oriented x3, no apparent distress and healthy appearing HEENT normocephalic, head/scalp atraumatic, hearing grossly normal bilaterally, external ears normal, external nose normal and moist oral mucous membranes Eyes PERRL, EOMs intact bilaterally, conjunctivae normal and no scleral icterus Neck no lymphadenopathy, supple and no JVD Resp Auscultation: clear to auscultation bilaterally Cardio regular rate, regular rhythm, S1 normal heart sound, S2 normal heart sound, no rub, no gallops, no clicks, no JVD and peripheral pulses 2+ throughout Heart Sounds: murmur systolic II/ GI normal to inspection, nondistended, normoactive bowel sounds, soft to palpation, non-tender and non-distended Extremity normal to inspection, normal capillary refill, no clubbing, cyanosis or edema and no pedal edema Neuro oriented x3, CN's II-XII intact bilaterally, moves all extremities and no focal motor deficits Psych cooperative and affect normal Risk Stratification Risk Stratification Applicable: Yes Age >/= 65: Yes >/= 3 CAD Risk Factors (HTN, HLD, DM, family hx of CAD, or current smoker): Yes Aspirin Use in the Past 7 Days: Yes Severe Angina (>/= episodes in 24 hours): No EKG ST Changes >/= 0.5mm: No Positive Cardiac Marker: No ARABELLA Risk Stratification Score: 3 ARABELLA % Risk: 13% Risk Objective Data Vital Signs: Vital Signs Temp Pulse Resp BP Pulse Ox O2 Del Method O2 Flow Rate 97.0 F L 60 18 134/61 H 93 Room Air 2 06/10/22 00:00 06/10/22 07:00 06/10/22 04:00 06/10/22 07:00 06/10/22 07:13 06/10/22 07:13 06/09/22 16:32 Oxygen Flow Rate (L/min) 2 Oxygen Delivery Method Room Air Weight: 258 lb 6.108 oz Body Mass Index (BMI) 34.0 Intake & Output: Intake and Output for Last 24 Hours 06/08/22 06/09/22 06/10/22 23:59 23:59 23:59 Intake Total 1303.00 / 1576.30 692.20 / 692.20 Output Total 1300 / 1300 Balance 1303.00 / 876.30 -607.80 / -607.80 Lab / Micro Data Result Diagrams: 06/10/22 04:11 06/10/22 04:11 Labs: Laboratory Results - last 24 hr 06/09/22 16:10: WBC 7.6, RBC 4.68, Hgb 12.9 L, Hct 39.5 L, MCV 84.4, MCH 27.6, MCHC 32.7, RDW Std Deviation 49.1 H, RDW Coeff of Stew 15.9 H, Plt Count 211, MPV 10.9, Immature Gran % (Auto) 0.300, Neut % (Auto) 47.6, Lymph % (Auto) 34.6, [place] % (Auto) 12.3 H, Eos % (Auto) 4.5, Baso % (Auto) 0.7, Absolute Neuts (auto) 3.6, Absolute Lymphs (auto) 2.62, Nucleated RBC % 0 06/09/22 16:10: Sodium 138, Potassium 3.6, Chloride 110 H, Carbon Dioxide 27.0, Anion Gap 1 L, BUN 17, Creatinine 1.18, Estim Creat Clear Calc 65.83, Est GFR (MDRD) Af Amer 78, Est GFR (MDRD) Non-Af 65, BUN/Creatinine Ratio 14.4, Glucose 93, Calcium 9.0, Magnesium 1.7, Troponin I High Sens 47, TSH 2.19 06/09/22 16:10: PT 19.4 H, INR 1.7 06/09/22 16:10: B-Natriuretic Peptide 314.2 H 06/09/22 18:30: Troponin I High Sens 54 06/09/22 18:30: TSH 1.91 06/09/22 18:30: Magnesium 1.7 06/10/22 04:11: WBC 5.4, RBC 4.45 L, Hgb 12.4 L, Hct 38.1 L, MCV 85.6, MCH 27.9, MCHC 32.5, RDW Std Deviation 49.8 H, RDW Coeff of Stew 15.9 H, Plt Count 180, MPV 10.9 06/10/22 04:11: Sodium 140, Potassium 3.6, Chloride 110 H, Carbon Dioxide 26.0, Anion Gap 4 L, BUN 14, Creatinine 1.07, Estim Creat Clear Calc 72.60, Est GFR (MDRD) Af Amer 88, Est GFR (MDRD) Non-Af 73, BUN/Creatinine Ratio 13.1, Glucose 104, Calcium 8.5, Phosphorus 2.7, Magnesium 2.0, Total Bilirubin 0.50, AST 18, ALT 26, Alkaline Phosphatase 76, Total Protein 6.6, Albumin 3.3, Globulin 3.3, Albumin/Globulin Ratio 1.0 Rhythm Strip Rhythm Strip: tachycardia Rate: 125 Ectopy: None Cardiology Labs/Tests 06/09/22 16:10: WBC 7.6, RBC 4.68, Hgb 12.9 L, Hct 39.5 L, MCV 84.4, MCH 27.6, MCHC 32.7, Plt Count 211, MPV 10.9, Immature Gran % (Auto) 0.300, Neut % (Auto) 47.6, Lymph % (Auto) 34.6, [place] % (Auto) 12.3 H, Eos % (Auto) 4.5, Baso % (Auto) 0.7, Absolute Neuts (auto) 3.6, Nucleated RBC % 0 06/09/22 16:10: Sodium 138, Potassium 3.6, Chloride 110 H, Carbon Dioxide 27.0, Anion Gap 1 L, BUN 17, Creatinine 1.18, Est GFR (MDRD) Af Amer 78, Est GFR (MDRD) Non-Af 65, BUN/Creatinine Ratio 14.4, Glucose 93, Calcium 9.0, Magnesium 1.7 06/09/22 16:10: PT 19.4 H, INR 1.7 06/09/22 16:10: B-Natriuretic Peptide 314.2 H 06/09/22 18:30: Magnesium 1.7 06/10/22 04:11: WBC 5.4, RBC 4.45 L, Hgb 12.4 L, Hct 38.1 L, MCV 85.6, MCH 27.9, MCHC 32.5, Plt Count 180, MPV 10.9 06/10/22 04:11: Sodium 140, Potassium 3.6, Chloride 110 H, Carbon Dioxide 26.0, Anion Gap 4 L, BUN 14, Creatinine 1.07, Est GFR (MDRD) Af Amer 88, Est GFR (MDRD) Non-Af 73, BUN/Creatinine Ratio 13.1, Glucose 104, Calcium 8.5, Phosphorus 2.7, Magnesium 2.0, Total Bilirubin 0.50 Rhythm: EKG: ECHO: pending PPM: interrogation pending Radiography Diagnostic Testing: Radiology Impression Chest X-Ray 06/09/22 16:30 IMPRESSION: No acute cardiopulmonary disease or major interval change. Electronically Signed: Tim Ramirez DO at 16:48 EDT Reading Location ID and State: [address] [place] [address] Tel [phone], Service support ,
[2022-06-10] MEDS: HYDROCODONE/APAP 7.5-325/15ML 15 ML UDC PO (08:19)
[2022-06-10] MEDS: Potassium Chloride Oral Tablet 20 MEQ 40 MEQ PO ×2 (09:49→15:49)
[2022-06-10] MEDS: Aspirin E.C. 81 MG Tablet PO (09:49)
[2022-06-10] MEDS: amLODIPine 5 MG Tablet PO (09:50)
[2022-06-10] MEDS: Pantoprazole Sodium 40 MG Tablet PO (09:50)
[2022-06-10] MEDS: Metoprolol Tartrate 50 MG Tablet 150 MG PO ×2 (09:50→22:00)
[2022-06-10] MEDS: Lisinopril 10 MG Tablet PO ×2 (09:50→15:47)
--- NOTE | 2022-06-10 10:00 | EKG12_ITS ---
Test Reason : PALPS Blood Pressure : / mmHG Vent. Rate : 080 BPM Atrial Rate : 080 BPM P-R Int : 212 ms QRS Dur : 170 ms QT Int : 386 ms P-R-T Axes : 109 008 120 degrees QTc Int : 445 ms Sinus rhythm with marked sinus arrhythmia with 1st degree A-V block with SVT Left bundle branch block Abnormal ECG Confirmed by THERESA MACIAS, ISSAC ([id number]), video editor MARIANA CURTIS ([id number]) on 06/15/2022 9:57:28 AM Referred By: RYANN Confirmed By:ISSAC CARDENAS MD
--- NOTE | 2022-06-10 10:50 | CASEMGMT ---
RN CM Face to Face with patient for initial transition planning/care coordination assessment. RN CM introduced self and role at [facility]. Patient lying in bed, alert and oriented. Patient willing to participate in assessment and is able to answer all questions appropriately. Care providers, pharmacy, and demographics verified. Patient wishes to discharge home, denies need for home health at this time. Patient states he has no further needs or concerns at this time. CM to follow for discharge planning needs that may arise. PCP: Rivera Specialists: Ann, manager diesel; [place] urologist [facility] Insurance: [facility], [employer] Prescription Benefit: yes Living Will/HPOA: none LNOK: significant other Living Arrangements: Patient lives with significant other in a 2 story home with bed and bath on first floor. No steps to enter the home. Transportation: self, significant other DME/HHC: Patient has raised toilet, cane, walker at home. Patient has had [facility]. No previous SNF Disposition Plan: Patient to discharge home with family support and follow-up plans in place. Donna BLAS, RN, CM
--- NOTE | 2022-06-10 15:03 | NURSING ---
Pacer check completed around 1200 by this RN
--- NOTE | 2022-06-10 15:07 | CHAPLAIN ---
Type of Pastoral Visit _x__ Initial Visit ___ Follow-up Visit ___ On-call Visit ___ General Patient Visit ___ Spiritual Assessment ___ Family Conference ___ Bereavement ___ Rapid Response ___ Code Blue ___ Other (describe below) Pastoral Care Referral From _x__ Patient ___ Family ___ Nurse ___ Physician ___ Supervisor Corduroy Cutting ___ Chemical Blender ___ Other (describe below) Sacrament/Intervention _x__ Active listening ___ Anointing ___ Jainism ___ Bereavement ___ Communion _x__ Stefanie exploration ___ _x__ Life review _x__ Prayer ___ Reconciliation ___ Sacrament of Sick _x__ Supportive presence ___ Wedding ___ Other (describe below) Pastoral Comments patient is very welcoming and talks openly about his life and his stefanie; pt had concerns about heart and has had past heart issues; pt speaks of his stefanie in God and how important that is for him; pt gives life review and indicates his successes in life; pt asks for prayer; pt is expressive about this encounter 'as I'm so grateful to be able to talk to you;
[2022-06-10] MEDS: Morphine 2 MG/ML Syringe IV ×2 (15:46→19:55)
--- NOTE | 2022-06-10 16:15 | PN_ITS ---
Subjective Subjective Patient seen and examined. Was comfortably eating breakfast. He had no active complaints and felt well. Review of systems otherwise negative. He was on the amiodarone drip. He denied having any more palpitations. REview of systems otherwise negative. Objective Data Objective Data Vital Signs: Vital Signs Temp Pulse Resp BP Pulse Ox O2 Del Method O2 Flow Rate 97.1 F L 60 18 161/88 H 99 Room Air 2 06/10/22 13:00 06/10/22 15:00 06/10/22 15:00 06/10/22 15:00 06/10/22 15:00 06/10/22 15:00 06/09/22 16:32 Oxygen Flow Rate (L/min) 2 Oxygen Delivery Method Room Air Weight: 258 lb 6.108 oz Body Mass Index (BMI) 34.0 Intake & Output: Intake and Output for Last 24 Hours 06/08/22 06/09/22 06/10/22 23:59 23:59 23:59 Intake Total 1303.00 / 1576.30 1323.83 / 1323.83 Output Total 1900 / 1900 Balance 1303.00 / 876.30 -576.17 / -576.17 Lab / Micro Data Result Diagrams: 06/10/22 04:11 06/10/22 04:11 Labs: Laboratory Results - last 24 hr 06/09/22 16:10: WBC 7.6, RBC 4.68, Hgb 12.9 L, Hct 39.5 L, MCV 84.4, MCH 27.6, MCHC 32.7, RDW Std Deviation 49.1 H, RDW Coeff of Stew 15.9 H, Plt Count 211, MPV 10.9, Immature Gran % (Auto) 0.300, Neut % (Auto) 47.6, Lymph % (Auto) 34.6, [place] % (Auto) 12.3 H, Eos % (Auto) 4.5, Baso % (Auto) 0.7, Absolute Neuts (auto) 3.6, Absolute Lymphs (auto) 2.62, Nucleated RBC % 0 06/09/22 16:10: Sodium 138, Potassium 3.6, Chloride 110 H, Carbon Dioxide 27.0, Anion Gap 1 L, BUN 17, Creatinine 1.18, Estim Creat Clear Calc 65.83, Est GFR (MDRD) Af Amer 78, Est GFR (MDRD) Non-Af 65, BUN/Creatinine Ratio 14.4, Glucose 93, Calcium 9.0, Magnesium 1.7, Troponin I High Sens 47, TSH 2.19 06/09/22 16:10: PT 19.4 H, INR 1.7 06/09/22 16:10: B-Natriuretic Peptide 314.2 H 06/09/22 18:30: Troponin I High Sens 54 06/09/22 18:30: TSH 1.91 06/09/22 18:30: Magnesium 1.7 06/10/22 04:11: WBC 5.4, RBC 4.45 L, Hgb 12.4 L, Hct 38.1 L, MCV 85.6, MCH 27.9, MCHC 32.5, RDW Std Deviation 49.8 H, RDW Coeff of Stew 15.9 H, Plt Count 180, MPV 10.9 06/10/22 04:11: Sodium 140, Potassium 3.6, Chloride 110 H, Carbon Dioxide 26.0, Anion Gap 4 L, BUN 14, Creatinine 1.07, Estim Creat Clear Calc 72.60, Est GFR (MDRD) Af Amer 88, Est GFR (MDRD) Non-Af 73, BUN/Creatinine Ratio 13.1, Glucose 104, Calcium 8.5, Phosphorus 2.7, Magnesium 2.0, Total Bilirubin 0.50, AST 18, ALT 26, Alkaline Phosphatase 76, Total Protein 6.6, Albumin 3.3, Globulin 3.3, Albumin/Globulin Ratio 1.0 Radiography Diagnostic Testing: Radiology Impression Chest X-Ray 06/09/22 16:30 IMPRESSION: No acute cardiopulmonary disease or major interval change. Electronically Signed: Tim Ramirez DO at 16:48 EDT Reading Location ID and State: [address] [place] [address] Tel [phone], Service support , Echocardiogram 06/09/22 20:11 Interpretation Summary The estimated ejection fraction is 30-35 %. AICD/pacemaker lead noted on the right side Mild aortic valve stenosis Aortic valve area calculated 1.7 cm?? Maximum pressure gradient across aortic valve is 19.1 mmHg Mean pressure gradient 9.0 mmHg No previous echocardiogram to compare Ordering Physician: Vazquez Garcia Referring Physician: Braulio Stafford M.D. Performed By: Pascual Hayward RCS Rhythm Strip Rhythm Strip: tachycardia Rate: 125 Ectopy: None Physical Exam Const alert, oriented x3 and no apparent distress General Appearance: cooperative HEENT normocephalic, head/scalp atraumatic, moist oral mucous membranes and oropharynx normal Eyes PERRL and EOMs intact bilaterally Neck supple and no JVD Lymph Lymphatic: no lymphadenopathy noted and no lymphedema noted Resp normal respiratory effort, normal air movement and clear to auscultation bilaterally Cardio regular rate, regular rhythm, S1 normal heart sound, S2 normal heart sound and no murmurs GI normal to inspection, nondistended, normoactive bowel sounds, soft to palpation, non-tender and non-distended Extremity normal capillary refill, no clubbing, cyanosis or edema and no calf tenderness Skin General Skin Exam: no breakdown Neuro CN's II-XII intact bilaterally, no focal motor deficits, no sensory deficits noted and deep tendon reflexes 2+ bilaterally Motor Exam: strength 5/5 throughout Psych thought process normal, cooperative and affect normal Appearance: appropriate Assessment & Plan Assessment/Plan (1) Cardiac arrhythmia: (2) Paroxysmal SVT (supraventricular tachycardia): PLAN: Plan #Paroxysmal supraventricular tachycardia * tachycardia is resolving. On amiodarone drip * 2D echo: * cardiology on board * keep Mg >2 and potassium >4 * to be switched to PO amiodarone * #CAD s/p CABG: troponins x 3 not elevated. On aspirin and high intensity statin as well as metoprolol and lisinopril #Hypertension: on amlodipine, metoprolol and lisinopril. #GERD: on PPI #Hyperlipidemia: on statin #Aortic stenosis: 2D echo showed EF of 30-35% with modeartely dilated LV and mild aortic valve stenosis. #History of paroxysmal afib: on metoprolol. On coumadin. INR #S/p ICD: had a history of cardiac arrest and had ICD inserted afterwards. Device to be interrogated. DVT prophylaxis: on coumadin. Monitor INR Charges/Coding Visit Charges Inpatient E&M: 06687 Subs Hosp L2
[2022-06-10 17:53] LABS: Anion Gap 3 (5-15); BUN 14 mg/dL (7-18); BUN/Creat Ratio 12.7 RATIO (10-20); Calcium,Total 8.8 mg/dL (8.5-10.1); Chloride 108 mmol/L (98-107); EST Glomerular Filtration Rate 70 mL/min (>60); Est Glom Filt Rate - Afr Amer 85 mL/min (>60); Estimated Creatinine Clearance 70.62 ml/min; Glucose 101 mg/dL (74-106); Potassium 3.9 mmol/L (3.5-5.1); Sodium Level 136 mmol/L (136-145)
[2022-06-10] MEDS: Atorvastatin Calcium 40 MG Tablet PO (22:01)
[2022-06-10] MEDS: Amiodarone 200 MG Tablet PO (22:55)
[2022-06-11 03:01] VITALS: BMI 33.5
[2022-06-11 03:29] VITALS: BP 154/89; PULSE 60; RESP 18; TEMP 36.6; O2SAT 96
[2022-06-11] MEDS: HYDROCODONE/APAP 7.5-325/15ML 15 ML UDC PO (03:35)
[2022-06-11 04:37] LABS: Absolute Lymphocyte Count 1.67 X10^3/uL (0.83-4.51); Basophil# 0.05 X10^3/uL; Basophil% 0.9 % (0-1); Eosinophil# 0.26 X10^3/uL; Eosinophils% 4.7 % (0-5); Hematocrit 38.3 % (40-54); Hemoglobin 12.7 g/dL (13.0-16.5); Lymphocyte # 1.67 X10^3/ul (0.83-4.51); Mean Corp Hgb Conc 33.2 g/dL (32-36); Mean Corpuscular Hgb 28.4 pg (27.0-32.0); Mean Corpuscular Volume 85.7 fL (80-94); Mean Platelet Vol. 10.7 fl (6.2-12.0); Monocyte% 10.8 % (0-10); NRBC Flagged by Analyzer 0 % (0-5); Neutrophil # 2.96 X10^3/uL (2.7-7.7); Neutrophil % 53.2 % (47-70); Platelet Count 171 K/mm3 (150-450); RBC Distribution Width CV 15.5 % (11.6-14.6); RBC Distribution Width SD 48.7 fl (35.1-43.9); Red Blood Count 4.47 M/mm3 (4.6-6.2); White Blood Count 5.6 K/mm3 (4.4-11.0)
[2022-06-11 05:01] LABS: International Normalized Ratio 1.6; Prothrombin Time (Protime)PT. 18.6 SECONDS (11.7-14.9)
[2022-06-11 05:07] LABS: Magnesium 1.9 mg/dL (1.6-2.6)
[2022-06-11 07:12] VITALS: O2SAT 96
[2022-06-11] MEDS: Aspirin E.C. 81 MG Tablet PO (07:59)
--- NOTE | 2022-06-11 08:01 | PN.CARD_ITS ---
Documented by User: VICENTA Burciaga 06/11/22 10:06 Subjective Subjective Patient seen and evaluated. He is doing better. He is no longer having palpitations. He has not had any chest pain or shortness of breath. Pts device interrogation did not demonstrate any significant arrhythmias. Objective Data Vital Signs: Vital Signs Temp Pulse Resp BP Pulse Ox O2 Del Method O2 Flow Rate 97.8 F 60 18 154/89 H 96 Room Air 2 06/11/22 03:29 06/11/22 03:29 06/11/22 03:29 06/11/22 03:29 06/11/22 03:29 06/11/22 03:29 06/09/22 16:32 Oxygen Flow Rate (L/min) 2 Oxygen Delivery Method Room Air Weight: 254 lb 6.615 oz Body Mass Index (BMI) 33.5 Intake & Output: Intake and Output for Last 24 Hours 06/09/22 06/10/22 06/11/22 23:59 23:59 23:59 Intake Total 1303.00 / 1576.30 1942.00 / 1942.00 Output Total 2800 / 2800 800 / 800 Balance 1303.00 / 876.30 -858.00 / -858.00 -800 / -800 Lab / Micro Data Result Diagrams: 06/11/22 04:05 06/11/22 04:05 Labs: Laboratory Results - last 24 hr 06/10/22 16:55: Sodium 136, Potassium 3.9, Chloride 108 H, Carbon Dioxide 25.0, Anion Gap 3 L, BUN 14, Creatinine 1.10, Estim Creat Clear Calc 70.62, Est GFR (MDRD) Af Amer 85, Est GFR (MDRD) Non-Af 70, BUN/Creatinine Ratio 12.7, Glucose 101, Calcium 8.8 06/11/22 04:05: WBC 5.6, RBC 4.47 L, Hgb 12.7 L, Hct 38.3 L, MCV 85.7, MCH 28.4, MCHC 33.2, RDW Std Deviation 48.7 H, RDW Coeff of Stew 15.5 H, Plt Count 171, MPV 10.7, Immature Gran % (Auto) 0.400, Neut % (Auto) 53.2, Lymph % (Auto) 30.0, [place] % (Auto) 10.8 H, Eos % (Auto) 4.7, Baso % (Auto) 0.9, Absolute Neuts (auto) 3.0, Absolute Lymphs (auto) 1.67, Nucleated RBC % 0 06/11/22 04:05: PT 18.6 H, INR 1.6 06/11/22 04:05: Magnesium 1.9 Rhythm Strip Rhythm Strip: tachycardia Rate: 125 Ectopy: None Cardiology Labs/Tests 06/10/22 16:55: Sodium 136, Potassium 3.9, Chloride 108 H, Carbon Dioxide 25.0, Anion Gap 3 L, BUN 14, Creatinine 1.10, Est GFR (MDRD) Af Amer 85, Est GFR (MDRD) Non-Af 70, BUN/Creatinine Ratio 12.7, Glucose 101, Calcium 8.8 06/11/22 04:05: WBC 5.6, RBC 4.47 L, Hgb 12.7 L, Hct 38.3 L, MCV 85.7, MCH 28.4, MCHC 33.2, Plt Count 171, MPV 10.7, Immature Gran % (Auto) 0.400, Neut % (Auto) 53.2, Lymph % (Auto) 30.0, [place] % (Auto) 10.8 H, Eos % (Auto) 4.7, Baso % (Auto) 0.9, Absolute Neuts (auto) 3.0, Nucleated RBC % 0 06/11/22 04:05: PT 18.6 H, INR 1.6 06/11/22 04:05: Magnesium 1.9 Radiography Diagnostic Testing: Radiology Impression Echocardiogram 06/09/22 20:11 Interpretation Summary The estimated ejection fraction is 30-35 %. AICD/pacemaker lead noted on the right side Mild aortic valve stenosis Aortic valve area calculated 1.7 cm?? Maximum pressure gradient across aortic valve is 19.1 mmHg Mean pressure gradient 9.0 mmHg No previous echocardiogram to compare Ordering Physician: Vazquez Garcia Referring Physician: Braulio Stafford M.D. Performed By: Pascual Hayward RCS Physical Exam Const alert, oriented x3, no apparent distress and healthy appearing HEENT normocephalic, head/scalp atraumatic, hearing grossly normal bilaterally, external ears normal, external nose normal and moist oral mucous membranes Eyes PERRL, EOMs intact bilaterally, conjunctivae normal and no scleral icterus Neck no lymphadenopathy, supple and no JVD Resp Auscultation: clear to auscultation bilaterally Cardio regular rate, regular rhythm, S1 normal heart sound, S2 normal heart sound, no rub, no gallops, no clicks, no JVD and peripheral pulses 2+ throughout Heart Sounds: murmur systolic II/ GI normal to inspection, nondistended, normoactive bowel sounds, soft to palpation, non-tender and non-distended Extremity normal to inspection, normal capillary refill, no clubbing, cyanosis or edema and no pedal edema Neuro oriented x3, CN's II-XII intact bilaterally, moves all extremities and no focal motor deficits Psych cooperative and affect normal Assessment & Plan Assessment/Plan (1) Cardiac arrhythmia: (2) Paroxysmal SVT (supraventricular tachycardia): (3) PAF (paroxysmal atrial fibrillation): (4) S/P AVR (aortic valve replacement): (5) HTN (hypertension): QUALIFIERS: Hypertension type: essential hypertension Qualified Code(s): I10 - Essential (primary) hypertension (6) HLD (hyperlipidemia): QUALIFIERS: Hyperlipidemia type: unspecified Qualified Code(s): E78.5 - Hyperlipidemia, unspecified PLAN: Plan * ICD interrogation did not demonstrate any significant arrhythmias that were recent. It had noted arrhythmias in 12/2021. * Would like to continue amiodarone on OP basis at 200 mg daily * BP has been elevated, his lisinopril was increased to 20 mg daily. This will also help with his cardiomyopathy. Recommend that he follow with his [facility] director paid media for further OP management. * Recommend that he continue the rest of his cardiac home medications. * Per patient his ejection fraction is similar to what it had been previous. He does not have any symptoms of congestive heart failure. He will continue with his aggressive medical management that he is on at home. We will also increase his lisinopril to 20 mg daily as mentioned above. Charges/Coding Visit Charges Inpatient E&M: 55756 Subs Hosp L2 Documented by User: Dr. Yarelis Flores MD 06/11/22 18:32 Lab / Micro Data Result Diagrams: 06/11/22 04:05 06/11/22 04:05 Assessment & Plan Assessment/Plan (1) Cardiac arrhythmia: (2) Paroxysmal SVT (supraventricular tachycardia): (3) PAF (paroxysmal atrial fibrillation): (4) S/P AVR (aortic valve replacement): (5) HTN (hypertension): QUALIFIERS: Hypertension type: essential hypertension Qualified Code(s): I10 - Essential (primary) hypertension (6) HLD (hyperlipidemia): QUALIFIERS: Hyperlipidemia type: unspecified Qualified Code(s): E78.5 - Hyperlipidemia, unspecified PLAN: Plan * ICD interrogation did not demonstrate any significant arrhythmias that were recent. It had noted arrhythmias in 12/2021. * Would like to continue amiodarone on OP basis at 200 mg daily * BP has been elevated, his lisinopril was increased to 20 mg daily. This will also help with his cardiomyopathy. Recommend that he follow with his [facility] director paid media for further OP management. * Recommend that he continue the rest of his cardiac home medications. * Per patient his ejection fraction is similar to what it had been previous. He does not have any symptoms of congestive heart failure. He will continue with his aggressive medical management that he is on at home. We will also increase his lisinopril to 20 mg daily as mentioned above. Patient to follow-up with [facility] cardiac team
[2022-06-11 08:26] LABS: Anion Gap 5 (5-15); BUN 15 mg/dL (7-18); BUN/Creat Ratio 13.2 RATIO (10-20); Calcium,Total 8.9 mg/dL (8.5-10.1); Chloride 109 mmol/L (98-107); Creatinine, Serum 1.14 mg/dL (0.70-1.30); EST Glomerular Filtration Rate 67 mL/min (>60); Est Glom Filt Rate - Afr Amer 82 mL/min (>60); Estimated Creatinine Clearance 68.14 ml/min; Glucose 121 mg/dL (74-106); Potassium 3.7 mmol/L (3.5-5.1); Sodium Level 137 mmol/L (136-145)
[2022-06-11] MEDS: Pantoprazole Sodium 40 MG Tablet PO (09:15)
[2022-06-11] MEDS: amLODIPine 5 MG Tablet PO (09:15)
[2022-06-11] MEDS: Amiodarone 200 MG Tablet PO (09:16)
[2022-06-11] MEDS: Lisinopril 20 MG Tablet PO (09:19)
[2022-06-11 09:26] VITALS: BP 168/83; PULSE 58; RESP 15; TEMP 36.6; O2SAT 98
[2022-06-11 10:45] VITALS: BP 140/81; PULSE 60; RESP 17; TEMP 36.6; O2SAT 96
[2022-06-11 11:35] VITALS: PULSE 60
[2022-06-11] MEDS: Metoprolol Tartrate 50 MG Tablet 150 MG PO (11:35)
[2022-06-11 12:05] VITALS: BP 140/81; PULSE 60; RESP 17; TEMP 36.6; O2SAT 96
--- NOTE | 2022-06-11 12:08 | DS.PCM_ITS ---
Providers Date of Admission: 06/09/22 Date of Discharge: 06/11/22 Primary Care Physician: Dr. Braulio Stafford MD Consultations 06/09/22 20:11 Consult: Cardiology Routine Consulting Provider: Yarelis Flores Reason for Consult: paroxysmal SVT vs Aflutter with RVR and aberrancy EMERGENT Consult: No MD Notified: Yes Date Notified: 06/09/22 Time Notified: 20:14 Method of Notification: ED Physician Initiated Comments:: Dr. Garcia spoke with doctor Reason For Visit: SVT Diagnosis Discharge Diagnosis (1) Cardiac arrhythmia: Status: Acute Code(s): I49.9 - Cardiac arrhythmia, unspecified (2) Paroxysmal SVT (supraventricular tachycardia): Status: Acute Code(s): I47.1 - Supraventricular tachycardia (3) PAF (paroxysmal atrial fibrillation): Status: Chronic Code(s): I48.0 - Paroxysmal atrial fibrillation (4) S/P AVR (aortic valve replacement): Status: Chronic Code(s): Z95.2 - Presence of prosthetic heart valve (5) HTN (hypertension): Status: Chronic Code(s): I10 - Essential (primary) hypertension Qualifiers: Hypertension type: essential hypertension Qualified Code(s): I10 - Essential (primary) hypertension (6) HLD (hyperlipidemia): Status: Chronic Code(s): E78.5 - Hyperlipidemia, unspecified Qualifiers: Hyperlipidemia type: unspecified Qualified Code(s): E78.5 - Hyperlipidemia, unspecified Plan #Paroxysmal supraventricular tachycardia * tachycardia is resolving. On amiodarone drip * 2D echo: * cardiology on board * keep Mg >2 and potassium >4 * to be switched to PO amiodarone * #CAD s/p CABG: troponins x 3 not elevated. On aspirin and high intensity statin as well as metoprolol and lisinopril #Hypertension: on amlodipine, metoprolol and lisinopril. #GERD: on PPI #Hyperlipidemia: on statin #Aortic stenosis: 2D echo showed EF of 30-35% with modeartely dilated LV and mild aortic valve stenosis. #History of paroxysmal afib: on metoprolol. On coumadin. INR #S/p ICD: had a history of cardiac arrest and had ICD inserted afterwards. Device to be interrogated. DVT prophylaxis: on coumadin. Monitor INR Medications at Discharge Home Medications albuterol sulfate 90 mcg/actuation aerosol inhaler (Ventolin HFA) 2 puff inh alation Q4H PRN PRN Sob &/Or Wheezing 12/29/12 aspirin 81 mg tablet,delayed release 81 mg PO DAILY 03/28/19 atorvastatin 40 mg tablet 40 mg PO QHS 03/28/19 fluticasone propionate 50 mcg/actuation nasal spray,suspension 2 spray NASAL DAILY PRN PRN Allergy Symptoms 03/28/19 lisinopril 20 mg tablet 20 mg PO DAILY 10/08/19 nitroglycerin 0.3 mg sublingual tablet 0.3 mg SL PRN PRN Angina 10/08/19 warfarin 5 mg tablet 5 mg PO SUTUWETHFRSA Check with primary doctor 10/08/19 warfarin 5 mg tablet 7.5 mg PO QWEEK Check with primary doctor 10/08/19 amlodipine 5 mg tablet (Norvasc) 5 mg PO DAILY Check with primary doctor 06/09/22 hydrocodone 7.5 mg-acetaminophen 325 mg tablet 1 tab PO Q12H PRN PRN Pain 06/09/22 metoprolol tartrate 100 mg tablet 150 mg PO BID Check with primary doctor 06/09/22 omeprazole 40 mg capsule,delayed release 40 mg PO DAILY Check with primary doctor 06/09/22 amiodarone 200 mg tablet 200 mg PO DAILY #30 tabs 06/11/22 Hospital Course Operations None Procedures 2-D Echocardiogram Summary of Care Provided Minutes Spent on Discharge: 48 Hospital Course: Patient is a pleasant 71-year-old male with a past medical history as outlined which includes CAD s/p CABG, right carotid endarterectomy, atrial fibrillation and history of cardiopulmonary arrest s/p ICD. He was admitted through the ED with a complaint of palpitations that been going on for about 5 days. His symptoms gradually worsened and became more persistent and he had associated lightheadedness so he came into the ED. In the ED, EKG showed intermittent wide-complex regular tachycardia. He denied any chest pain, nausea or vomiting. Troponins x3 were negative. He was started on amiodarone drip and cardiology consulted. He had 2D echo which showed EF of 30 to 35% with ICD and pacemaker leads present as well as mild aortic valve stenosis. His tachycardia improved. ICD was also interrogated. He was switched to p.o. amiodarone and weaned off of amiodarone drip. He was placed on lisinopril 20 mg daily as well. Patient remained stable and felt much better. His INR was 1.9 on admission and was 1.6 on the day of admission. Patient did not want to stay for his INR to get therapeutic level as he said he had an INR machine at home and checked his INR regularly. He was counseled to take 10 mg of Coumadin on 06/11/2022 and check his INR the next day. He is to call his PCP and log inspector with the INR results for Coumadin dose to be adjusted as needed. Patient seen and examined prior to discharge. He had no complaints and felt well. He had an uneventful night and review of systems otherwise negative. Labs and vitals reviewed. Home medication reviewed and reconciled. Physical Exam Const alert, oriented x3 and no apparent distress General Appearance: cooperative, comfortable and well kempt Orientation / Consciousness: awake HEENT normocephalic, head/scalp atraumatic, hearing grossly normal bilaterally, moist oral mucous membranes and oropharynx normal Mouth: oral and palatal mucosa normal Eyes PERRL and EOMs intact bilaterally Neck no lymphadenopathy, supple and no JVD Lymph Lymphatic: no lymphadenopathy noted and no lymphedema noted Resp normal respiratory effort, normal air movement and clear to auscultation bilater ally Cardio regular rate, regular rhythm, S1 normal heart sound, S2 normal heart sound and no murmurs GI normal to inspection, nondistended, normoactive bowel sounds, soft to palpation, non-tender and non-distended Extremity normal to inspection, full ROM, normal capillary refill, no clubbing, cyanosis or edema and no calf tenderness Skin no rashes or lesions noted General Skin Exam: no breakdown Neuro oriented x3, CN's II-XII intact bilaterally, moves all extremities, no focal motor deficits, no sensory deficits noted and deep tendon reflexes 2+ bilaterally Sensorium / Orientation: awake and alert Motor Exam: strength 5/5 throughout Psych thought process normal, cooperative and affect normal Appearance: appropriate Weight / BMI Weight Weight: 254 lb 6.615 oz Body Mass Index (BMI) 33.5 ABG / Lab / Microbiology Data Result Diagrams: 06/11/22 04:05 06/11/22 04:05 Laboratory: Laboratory Results - last 24 hr 06/10/22 16:55: Sodium 136, Potassium 3.9, Chloride 108 H, Carbon Dioxide 25.0, Anion Gap 3 L, BUN 14, Creatinine 1.10, Estim Creat Clear Calc 70.62, Est GFR (MDRD) Af Amer 85, Est GFR (MDRD) Non-Af 70, BUN/Creatinine Ratio 12.7, Glucose 101, Calcium 8.8 06/11/22 04:05: WBC 5.6, RBC 4.47 L, Hgb 12.7 L, Hct 38.3 L, MCV 85.7, MCH 28.4, MCHC 33.2, RDW Std Deviation 48.7 H, RDW Coeff of Stew 15.5 H, Plt Count 171, MPV 10.7, Immature Gran % (Auto) 0.400, Neut % (Auto) 53.2, Lymph % (Auto) 30.0, [place] % (Auto) 10.8 H, Eos % (Auto) 4.7, Baso % (Auto) 0.9, Absolute Neuts (auto) 3.0, Absolute Lymphs (auto) 1.67, Nucleated RBC % 0 06/11/22 04:05: PT 18.6 H, INR 1.6 06/11/22 04:05: Magnesium 1.9 06/11/22 04:05: Sodium 137, Potassium 3.7, Chloride 109 H, Carbon Dioxide 23.0, Anion Gap 5, BUN 15, Creatinine 1.14, Estim Creat Clear Calc 68.14, Est GFR (MDRD) Af Amer 82, Est GFR (MDRD) Non-Af 67, BUN/Creatinine Ratio 13.2, Glucose 121 H, Calcium 8.9 Radiography Diagnostic Testing: Radiology Impression Echocardiogram 06/09/22 20:11 Interpretation Summary The estimated ejection fraction is 30-35 %. AICD/pacemaker lead noted on the right side Mild aortic valve stenosis Aortic valve area calculated 1.7 cm?? Maximum pressure gradient across aortic valve is 19.1 mmHg Mean pressure gradient 9.0 mmHg No previous echocardiogram to compare Ordering Physician: Vazquez Garcia Referring Physician: Braulio Stafford M.D. Performed By: Pascual Hayward RCS D/C Instructions Discharge Diet: Low fat / Low cholesterol Discharge Activity: Return to Normal Activity Weight Bearing Status: Weight bearing as tolerated Call your doctor if you observe: Fever of 101 or Higher, Shortness of breath, Dizziness, Swelling in the ankles, Chest pain and Increased palpitations (irregular heartbeat) Meaningful Use Info Meaningful Use Diagnoses (Choose all that apply): None applicable Discharge Plan Admission Admit Date/Time: 06/09/22 20:05 Primary Reason for Your Visit: SVT Attending Provider: Nimco Montes De Oca Primary Care Provider: Braulio Stafford Consulting Providers: Yarelis Flores ; Vazquez Garcia Instructions Patient Instructions: Cardiac Arrhythmia Ch Additional Instructions / Restrictions: to take 10mg of warfarin today. check INR tomorrow and inform your log inspector and PCP to be advised about dose of warfarin to take Discharge Orders/Prescriptions Prescriptions: New amiodarone 200 mg Tablet 200 mg PO DAILY Qty: 30 2RF Continued albuterol sulfate [Ventolin HFA] 1 INHALER inhaler 2 puff inhalation Q4H PRN PRN (Reason: Sob &/Or Wheezing) atorvastatin 40 MG tablet 40 mg PO QHS aspirin 81 MG tablet,delayed release (DR/EC) 81 mg PO DAILY fluticasone propionate 1 SPRAY spray,suspension 2 spray NASAL DAILY PRN PRN (Reason: Allergy Symptoms) lisinopril 20 MG tablet 20 mg PO DAILY warfarin 5 MG tablet 7.5 mg PO QWEEK Rx Instructions: on wednesday warfarin 5 MG tablet 5 mg PO SUTUWETHFRSA Rx Instructions: every day except wednesday nitroglycerin 0.3 MG tablet, sublingual 0.3 mg SL PRN PRN (Reason: Angina) metoprolol tartrate 100 mg tablet 150 mg PO BID hydrocodone-acetaminophen 7.5-325 mg tablet 1 tab PO Q12H PRN PRN (Reason: Pain) amlodipine [Norvasc] 5 mg Tablet 5 mg PO DAILY omeprazole 40 mg Capsule,Delayed Release(Dr/Ec) 40 mg PO DAILY Referrals / Follow Up: Braulio Stafford MD [Primary Care Provider] - 06/23/22 11:00 am Disposition Disposition (needs filled in before D/C Order can be placed): Home, Self Care Charges/Coding Visit Charges Inpatient E&M: 39657 Disch Hosp >30min
--- NOTE | 2022-06-11 13:20 | CASEMGMT ---
RN CM notified that patient is discharging. RN CM in to patient's room. Patient denies needs at discharge and had no further questions or concerns at this time.
--- NOTE | 2022-06-11 13:56 | PHA.DC.MR ---
Pharmacy Service has performed discharge medication reconciliation for this patient. Counselling materials prepared, but patient left prior to counselling. Home Medications albuterol sulfate 90 mcg/actuation aerosol inhaler (Ventolin HFA) 2 puff inhalation Q4H PRN PRN Sob &/Or Wheezing 12/29/12 aspirin 81 mg tablet,delayed release 81 mg PO DAILY 03/28/19 atorvastatin 40 mg tablet 40 mg PO QHS 03/28/19 fluticasone propionate 50 mcg/actuation nasal spray,suspension 2 spray NASAL DAILY PRN PRN Allergy Symptoms 03/28/19 lisinopril 20 mg tablet 20 mg PO DAILY 10/08/19 nitroglycerin 0.3 mg sublingual tablet 0.3 mg SL PRN PRN Angina 10/08/19 warfarin 5 mg tablet 5 mg PO SUTUWETHFRSA Check with primary doctor 10/08/19 warfarin 5 mg tablet 7.5 mg PO QWEEK Check with primary doctor 10/08/19 amlodipine 5 mg tablet (Norvasc) 5 mg PO DAILY Check with primary doctor 06/09/22 hydrocodone 7.5 mg-acetaminophen 325 mg tablet 1 tab PO Q12H PRN PRN Pain 06/09/22 metoprolol tartrate 100 mg tablet 150 mg PO BID Check with primary doctor 06/09/22 omeprazole 40 mg capsule,delayed release 40 mg PO DAILY Check with primary doctor 06/09/22 amiodarone 200 mg tablet 200 mg PO DAILY #30 tabs 06/11/22 The patient's discharge medication list was reviewed for discrepancies and discrepancies were resolved.
--- NOTE | 2022-06-12 11:31 | NURSING ---
JOHNNY CM Discharge follow-up phone call LACE:10 Strata:3 Date of call:06/12/22 Time of Call:1130 Admitting diagnosis: SVT Summary of call: Spoke with patient regarding recent hospitalization. Pt denies questions or concerns regarding recent care. Pt instructed to contact PCP with any questions or concerns should they arise.
== END 2022-06-11 13:30 | disposition home or self-care (01) | DRG 309 ==
LOC: ED 16:31 → PCU 18:52
PROVIDERS: Admitting Provider Internal Medicine; Emergency Provider Emergency Medicine; PCP Internal Medicine; Visit Provider Student in an Organized Health Care Education/Training Program
DX: I47.1 Supraventricular tachycardia (principal); I13.0 Hypertensive heart and chronic kidney disease with heart failure and stage 1 through stage 4 chronic kidney disease, or unspecified chronic kidney disease; I50.22 Chronic systolic (congestive) heart failure; Z86.74 Personal history of sudden cardiac arrest; I48.0 Paroxysmal atrial fibrillation; N18.30 Chronic kidney disease, stage 3 unspecified; I25.10 Atherosclerotic heart disease of native coronary artery without angina pectoris; E78.5 Hyperlipidemia, unspecified; I35.0 Nonrheumatic aortic (valve) stenosis; K21.9 Gastro-esophageal reflux disease without esophagitis; Z95.2 Presence of prosthetic heart valve; Z95.810 Presence of automatic (implantable) cardiac defibrillator; Z79.01 Long term (current) use of anticoagulants; Z79.82 Long term (current) use of aspirin; Z79.899 Other long term (current) drug therapy; Z87.891 Personal history of nicotine dependence
CPT/HCPCS: 36415; 71045; 80048; 80053; 83735; 83880; 84100; 84443; 84484; 85025; 85027; 85610; 93005; 93306; 99285; J7030; Q9957; A4216; C8929

== ENCOUNTER 2022-08-13 09:00 | Outpatient (RCR) | payer MEDICARE, OTHER, SELFPAY ==
[2019-05-01 07:27] VITALS: BMI 33.3
--- NOTE | 2022-07-15 09:06 | HP.PTEVAL ---
Patient's Visit Information CLEMENTINA WILKS is a 71 year old M referred to Physical Therapy by Dr. Braulio Stafford MD with a diagnosis of CHRONIC LEFT- SIDE LOW BACK PAIN WITH LEFT SIDE SCIATICA. Date of Evaluation: 07/15/22 Physical Therapist: Huang Fuchs, PT, Cert MDT, OCS - Visit Plan Frequency: 2x /Week Duration: 4 Weeks Plan: PT INTERVETIONS LUMBAR FLEXION ,HIP STRENGTHENING ,DLS ,POSTURAL EX'S AND MODALTIES PRN - Subjective This 71 y/o male presents to physical therapy with lumbar radiculopathy. Patient has had for many years. Patient has had right THR right ~ months ago. Patient has h/o back surgery fusion ,cervical fusion 1989 ,CABG ,pacemaker/defibrillator . Seen Dr recommended hydrocodone. Patient had x-rays DDD ,MRI showed fusion intact DDD. Location pain symmetrical lumbar buttock hamstrings ,worse left > right. Aggravating factors standing/walking, bending and lifting ,sitting all day ,worse in morning. Alleviating medication ,massage ,heat. C/O intermittent paresthesia/tingling . Bowel/bladder-. Coughing/sneezing+. Patient able to sleep okay. Patient has no abnormal night pain. Patient pain affects QOL and function. Patient goals to decrease pain. SOCAIL: single. [employer]OVATION: [employer] - Pain Bilateral Back Pain Intensity (Out of 10): 6 Pain Intensity Range: 9 Right Lower Extremity Pain Intensity (Out of 10): 4 Pain Intensity Range: 10 - Objective POSTURE: mild forward posture. GAIT: antalgic gait with decrease stance time RLE with weakness glut medius. NEURO intact ,denies paresthesia/tingling reflexes L3-4,L4-5,L5-S1 1/3. MMT: 4/5 quads/hams/hip flexion ,( peak force ) hip abduction 0 right ,ankle 4/5. LUMBAR ROM: flexion min/mod loss ,side glides mod loss pain right side , extension severe loss pain - Special Tests L/S Slump test left side: Negative L/S Slump test right side: Negative L/S Left Straight Leg Raise: Negative L/S Right Straight Leg Raise: Negative Lumbar Standing: Flexion - Mechanical Response: No effect Lumbar Standing: Flexion - Symptoms During Testing: No effect Lumbar Standing: Flexion - Symptoms After Testing: No effect Lumbar Standing: Extension - Mechanical Response: No effect Lumbar Standing: Extension - Symptoms During Testing: Increases Lumbar Standing: Extension - Symptoms After Testing: No worse Lumbar Standing: Right Side Glides - Mechanical Response: No effect Lumbar Standing: Right Side [place] - Symptoms During Testing: Increases Lumbar Standing: Right Side [place] - Symptoms After Testing: No worse Lumbar Standing: Left Side [place] - Mechanical Response: No effect Lumbar Standing: Left Side [place] - Symptoms During Testing: No effect Lumbar Standing: Left Side [place] - Symptoms After Testing: No effect - Balance/Special Test Scores Oswestry Low Back Score: 24 - Goals Goal 1:: Patient to be I with HEP for back Goal Time Frame: 4-6 Weeks Goal 2:: Patient to improve gait with less antalgic gait 50% with less pain Goal Time Frame: 4-6 Weeks Goal 3:: Patient improve lumbar ROM for function of recovery ton tie shows Goal Time Frame: 4-6 Weeks Goal 4:: Patient to demonstrate 50 % improvement with less pain and improved function Goal Time Frame: 4-6 Weeks Goal 5:: Patient improve peak force of hip abduction right by 5-10 to improve gait Goal Time Frame: 4-6 Weeks Goal 6:: Patient to improve back osestry score by 5 points to improve QOL Goal Time Frame: 4-6 Weeks - Rehabilitation Potential Physical Therapy Diagnosis: This patient has lumbar pain with radiculopathy with possible stenosis h/o lumbar fusion and weakness glut Medius with weakness with pain during position and motion testing worse with standing /walking thus benefit from skilled PT Rehabilitation Potential: Good - Anticipated Interventions Patient/Client Instruction: Educate patient on: Condition, Plan of Care For the Purpose of:: To decrease pain, To increase ROM, To improve muscle performance and motor function, To improve ability to perform ADL's, To increase tolerance to activity/condition/position, To improve ability of physical actions for home/community/work/leisure, To improve health of tissue, To decrease soft tissue restriction, To increase flexibility/ROM, To improve endurance, To improve tolerance to ADL's Therapeutic Exercise to Include: Strength training, Power training, Body mechanics, Postural training, Flexibilty training, Dynamic Lumbar Stabilization Comment: HIP ABD For the Purpose of:: To decrease pain, To increase ROM, To improve muscle performance and motor function, To improve ability to perform ADL's, To increase tolerance to activity/condition/position, To improve ability of physical actions for home/community/work/leisure, To improve health of tissue, To decrease soft tissue restriction, To increase flexibility/ROM, To reduce risk of recurrence, To improve tolerance to ADL's TENS: Yes IF ES: Yes Cryotherapy (ice pack, ice massage): Yes Thermo therapy (hot pack): Yes Ultrasound (thermal/non thermal): Yes For the Purpose of:: To decrease pain, To increase ROM, To improve nutrient delivery to tissue, To increase oxygenation perfusion, To improve health of tissue, To decrease soft tissue restriction Thank you for the opportunity to evaluate your patient. For Medicare and Medicare HMO plans, please review the plan of care and approve it. It will need to be FAXED BACK to us at [phone] for Medicare purposes. For Medicare only, by signing this I certify the plan of care. Please let me know if there are questions or concerns regarding this plan of care. Physician Signature: Date:
--- NOTE | 2022-08-13 09:22 | HP.PTDCSUM ---
It has been my pleasure to treat CLEMENTINA WILKS referred by Dr. Braulio Stafford MD, with the diagnosis of CHRONIC LEFT- SIDE LOW BACK PAIN WITH LEFT SIDE SCIATICA for a total of 7 visit(s). Discharge Date: 08/13/22 Please see the following information for a summary of their discharge status. Subjective: Doing well ready .. for d/c to HEP. WALKING IS BETTER Bilateral Back Pain Intensity (Out of 10): 1 Right Lower Extremity Pain Intensity (Out of 10): 0 % Improvement: 50 Objective/Function: POSTURE: mild forward posture. GAIT: antalgic gait with decrease stance time RLE with weakness glut medius. NEURO intact ,denies paresthesia/tingling reflexes L3-4,L4-5,L5-S1 1/3. MMT: 4/5 quads/hams/hip flexion ,( peak force ) hip abduction 10 right ,ankle 4/5. LUMBAR ROM: flexion min/mod loss ,side glides mod loss pain right side , extension severe loss pain. - Goal 1:: Patient to be I with HEP for back Goal Progress: Goal Met Goal 2:: Patient to improve gait with less antalgic gait 50% with less pain Goal Progress: Goal Met Goal 3:: Patient improve lumbar ROM for function of recovery ton tie shows Goal Progress: Goal Met Goal 4:: Patient to demonstrate 50 % improvement with less pain and improved function Goal 5:: Patient improve peak force of hip abduction right by 5-10 to improve gait Goal Progress: Goal Met Goal 6:: Patient to improve back osestry score by 5 points to improve QOL Goal Progress: Goal Met Plan: D/C Discharge Comments: HEP If there are questions or concerns regarding this patient's physical therapy, please feel free to call me at [phone]. Thank you for the referral of this patient. Sincerely, Huang Fuchs, PT, Cert MDT, OCS Balance/Gait/Functional tests - Balance/Special Test Scores Oswestry Low Back Score: 11
== END 2022-08-13 19:00 | disposition home or self-care (01) ==
LOC: PT 09:00
PROVIDERS: PCP Internal Medicine; Referring Provider Internal Medicine; Visit Provider Internal Medicine
DX: M54.42 Lumbago with sciatica, left side (principal); M79.10 Myalgia, unspecified site; G89.29 Other chronic pain
CPT/HCPCS: 97110; 97162; 97530